=== PATIENT | male | born 1955 | race Caucasian/White ===

== ENCOUNTER 2022-07-19 11:52 | Outpatient (REF) | payer MEDICARE, MEDICAID, SELFPAY ==
[2022-07-19 14:38] LABS: Appearance Urine Clear; Color Urine Yellow; Glucose Urine UA Negative (Negative); Leukocyte Esterase Urine Small (1+) (Negative); Nitrite Urine Negative (Negative); PH 5.5 (5.0-9.0); UMIC TRIGGER UA YES; Urine Blood Negative (Negative); Urine Ketones Negative (Negative); Urine Protein Negative (Neg-Trace)
[2022-07-19 14:40] LABS: Bacteria Urine None Seen (None Seen); Hyaline Casts Urine 0-2 /LPF (0-2); RBC Urine 0-2 /HPF (0-2); Squamous Epithelial Cell Urine 0-2 /HPF (0-2)
[2022-07-19 17:31] LABS: CT PCR NOT DETECTED (Not Detect.); NG PCR NOT DETECTED (Not Detect.)
== END 2022-07-19 11:53 | disposition home or self-care (01) ==
LOC: HO.LAB 11:52
PROVIDERS: Visit Provider Family Medicine
DX: Z11.3 Encounter for screening for infections with a predominantly sexual mode of transmission (principal); R32 Unspecified urinary incontinence; Z20.2 Contact with and (suspected) exposure to infections with a predominantly sexual mode of transmission
CPT/HCPCS: 81001; 87086; 87491; 87591

== ENCOUNTER → 2022-07-25 15:15 | Outpatient (BNVA) | payer MEDICARE, MEDICAID, SELFPAY | PROVIDERS: PCP Family Medicine; Visit Provider Surgery | DX: K42.9 Umbilical hernia without obstruction or gangrene (principal); R32 Unspecified urinary incontinence; M19.90 Unspecified osteoarthritis, unspecified site; N40.0 Benign prostatic hyperplasia without lower urinary tract symptoms; E78.5 Hyperlipidemia, unspecified; I10 Essential (primary) hypertension; E11.9 Type 2 diabetes mellitus without complications | CPT/HCPCS: 99202 ==

== ENCOUNTER 2022-08-02 11:13 | Outpatient (REF) | payer MEDICARE, MEDICAID, SELFPAY ==
[2022-08-02 11:37] LABS: MANUAL DIFF FLAG NO
[2022-08-02 11:57] LABS: Basophils Percent Auto 0.5 % (0-2); Eosinophils Absolute Auto 0.2 X10*3/uL (0.0-0.4); Eosinophils Percent Auto 2.4 % (0-4); Hematocrit 39.2 % (42.0-52.0); Hemoglobin 13.7 g/dl (14.0-18.0); Imm Gran Abs Auto 0.02 X10*3/uL (0.00-0.03); Imm Gran Pct Auto 0.3 % (0.0-0.4); Lymphocytes Absolute Auto 1.1 X10*3/uL (1.2-4.9); Mean Corpuscular HGB Conc 34.9 g/dl (31.0-36.0); Mean Corpuscular Hemoglobin 38.6 pg (27.0-33.0); Mean Platelet Volume 9.5 fL (9.4-12.4); Monocytes Absolute Auto 0.4 X10*3/uL (0.1-1.2); Monocytes Percent Auto 6.5 % (2-11); Neutrophils Absolute Auto 4.5 x10*3/uL (2.0-8.3); Neutrophils Percent Auto 73.3 % (45-73); Platelet Count 255 X10*3/uL (160-400); Red Blood Count 3.55 X10*6/uL (4.60-5.80); Red Cell Distribution Width 13.4 % (11.0-16.0); White Blood Count 6.2 X10*3/uL (4.8-10.8)
[2022-08-02 12:02] LABS: Mean Corpuscular Volume 110.4 fL (80.0-98.0)
[2022-08-02 12:12] LABS: Estimated Average Glucose 128 mg/dL; Hemoglobin A1c % 6.1 %
[2022-08-02 13:37] LABS: Appearance Urine Clear; Color Urine Yellow; Glucose Urine UA Negative (Negative); Leukocyte Esterase Urine Small (1+) (Negative); Nitrite Urine Negative (Negative); PH 5.5 (5.0-9.0); UMIC TRIGGER UA YES; Urine Blood Negative (Negative); Urine Ketones Negative (Negative); Urine Protein Negative (Neg-Trace)
[2022-08-02 13:39] LABS: Bacteria Urine None Seen (None Seen); Hyaline Casts Urine 0-2 /LPF (0-2); RBC Urine 0-2 /HPF (0-2); Squamous Epithelial Cell Urine 0-2 /HPF (0-2)
[2022-08-02 14:05] LABS: Alanine Aminotransferase 12 U/L (0-40); Alkaline Phosphatase 103 U/L (39-117); Anion Gap 12 (12-20); Aspartate Amino Transferase 12 U/L (5-37); Bilirubin Total 0.9 mg/dL (0.0-1.0); Blood Urea Nitrogen 22 mg/dL (9-16); Carbon Dioxide 29 mmol/L (22-29); Chloride 103 mmol/L (96-108); Cholesterol 200 mg/dL; Estimated Glomerular Filt Rate > 60; Glucose Fasting 120 mg/dL (60-99); HDL Cholesterol 43 mg/dL; LDL Cholesterol Calculated 130 mg/dl; Potassium 4.5 mmol/L (3.3-5.1); Prostate Specific Antigen Scr 0.75 ng/mL (<0.05-4.0); Sodium 139 mmol/L (135-145); TSH reflex Free T4 2.07 uIU/mL (0.32-4.0); Total Protein 6.5 g/dL (6.5-8.0); Triglycerides 138 mg/dL
[2022-08-02 14:26] LABS: Creatinine Urine 124.26 mg/dL; Microalbum/Creatinine Ratio Ur 8.8 ug/mg cr
== END 2022-08-02 11:14 | disposition home or self-care (01) ==
LOC: HO.LAB 11:13
PROVIDERS: PCP Family Medicine; Visit Provider Family Medicine
DX: Z00.00 Encounter for general adult medical examination without abnormal findings (principal); Z12.5 Encounter for screening for malignant neoplasm of prostate; I10 Essential (primary) hypertension; R32 Unspecified urinary incontinence; R73.01 Impaired fasting glucose
CPT/HCPCS: 36415; 80053; 80061; 81001; 82043; 83036; 84153; 84443; 85025

== ENCOUNTER → 2022-08-10 15:00 | Outpatient (BNVA) | payer MEDICARE, MEDICAID, SELFPAY | PROVIDERS: PCP Family Medicine; Visit Provider Surgery | DX: K42.9 Umbilical hernia without obstruction or gangrene (principal); R32 Unspecified urinary incontinence; M19.90 Unspecified osteoarthritis, unspecified site; N40.0 Benign prostatic hyperplasia without lower urinary tract symptoms; E11.9 Type 2 diabetes mellitus without complications; I10 Essential (primary) hypertension; E78.5 Hyperlipidemia, unspecified; E66.01 Morbid (severe) obesity due to excess calories; D64.9 Anemia, unspecified; Z68.37 Body mass index [BMI] 37.0-37.9, adult | CPT/HCPCS: 99212 ==

== ENCOUNTER 2022-10-04 12:48 | Inpatient (IN) | payer MEDICARE, MEDICAID, SELFPAY ==
--- NOTE | 2022-10-04 | ECG_ITS ---
Test Reason : STROKE ALERT Blood Pressure : / mmHG Vent. Rate : 079 BPM Atrial Rate : 079 BPM P-R Int : 168 ms QRS Dur : 086 ms QT Int : 356 ms P-R-T Axes : 065 030 048 degrees QTc Int : 408 ms Normal sinus rhythm Cannot rule out Anterior infarct , age undetermined Abnormal ECG When compared with ECG of 30-JUN-2014 10:33, Minimal criteria for Anterior infarct are now Present Referred By: Kelechi Silverio Electronically Signed By:RICK ROBERTO MD
--- NOTE | ~2022-10-04 | MR_ITS ---
EXAMINATION: MR BRAIN WITHOUT CONTRAST CLINICAL INFORMATION: Cerebrovascular accident. COMPARISON: CTA head and neck from 10/04/2022. CT head from 06/30/2014. TECHNIQUE: MRI of the brain was obtained using routine sequences without contrast. FINDINGS: There is a region of restricted diffusion involving the anterior right insula and lateral aspect of the right frontal lobe. Associated T2 FLAIR hyperintensity. No evidence of hemorrhagic transformation. No additional restricted diffusion. No evidence of acute or chronic hemorrhagic products on heme-sensitive imaging. Scattered confluent periventricular, deep white matter, and brainstem T2 FLAIR hyperintensities consistent with mild underlying microangiopathy. Proportional prominence of the ventricles and sulcal spaces without evidence of obstructive hydrocephalus. No abnormal mass effect. No midline shift. Normal appearance of the pituitary gland. Normal positioning of the cerebellar tonsils. Normal arterial and venous vascular flow voids are present. Normal, homogeneous marrow signal. Moderate degenerative spondyloarthropathy of the visualized upper cervical spine. Mild mucosal thickening of the paranasal sinuses. No signal abnormalities within the mastoids. Right-sided lens extraction. Partially visualized membrane within the posterior chamber of the right globe with a T1 hyperintense collection, consistent with sequela of chronic retinal detachment. MR/MR head/brain wo con IMPRESSION: 1. Acute infarct of the anterior right insula and lateral aspect of the right frontal lobe. No evidence of hemorrhagic transformation. 2. Mild underlying microangiopathy and generalized cerebral volume loss. 3. 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
--- NOTE | ~2022-10-04 | CT_ITS ---
EXAMINATION: CT ANGIOGRAM HEAD CT ANGIOGRAM NECK CLINICAL INFORMATION: Stroke COMPARISON: Sameday CT head TECHNIQUE: Initial noncontrast program director scouting imaging of the head and neck was performed. Comparison is made with noncontrast head CT from earlier today. Test bolus sequences followed by intravenous administration 70 mL of Omnipaque 350. Helical imaging was performed in the axial plane from the aortic arch to the skull vertex. Delayed postcontrast imaging of the head was also performed. The data was processed at the computer engineering technologist's workstation for generation of MIP sequences. Angled MIPs and volume rendered reformatted images were also generated at an offline 3D workstation. Stenoses are assessed in accordance with NASCET criteria unless otherwise indicated. This CT examination was performed using dose optimization techniques as appropriate, variously including the following: *Automated exposure control *Adjustment of mA and/or kV according to patient size (this includes techniques or standardized protocols for targeted exams where dose is matched to indication/reason for exam; i.e. extremities or head) *Use of iterative reconstruction technique DLP: 1596 mGy-cm FINDINGS: CT HEAD: Noncontrast findings are discussed separately. No pathologic intra-axial enhancement within limitations of CT or regional oligemia. CTA HEAD: Calcific plaque along the carotid siphons without significant luminal narrowing with atheromatous luminal irregularity along the bilateral cavernous segments The MCA vascular complexes are normal bilaterally. The ANEUDY complexes are intense, noting prominence of the anterior communicating artery without discrete aneurysm. The intradural vertebral arteries are patent. The basilar artery is normal. The posterior cerebral arteries are widely patent with prominent bilateral posterior communicating arteries. No proximal large vessel occlusion. No aneurysms and no high flow vascular malformations. No evidence of dural arteriovenous fistula. Timing of the contrast bolus allows assessment of the major dural venous sinuses, which all opacify normally CTA NECK: Suboptimal examination due to timing of contrast bolus, particularly limiting assessment of the proximal cervical vasculature. Classic 3 vessel branching pattern of the aortic arch. Fibrofatty and calcific plaque in the aortic arch and great vessel origins The common carotid arteries are widely patent, with retropharyngeal course more pronounced on the right. The carotid bifurcations and bilateral internal carotid arteries are normal. The vertebral artery ostia are widely patent. Both vertebral arteries are widely patent throughout their extracranial cervical course. Partially imaged dilated pulmonary artery measuring up to 3.4 cm in transverse dimension, which may be seen in the setting of pulmonary hypertension. CT NECK: The patient is edentulous. Fatty infiltration of the bilateral masseter and to a lesser extent temporalis musculature. Medialization of the right aryepiglottic fold with prominence of the right pyriform sinus and right laryngeal vestibule suggestive of right vocal cord paresis. The salivary glands are unremarkable. The thyroid gland is normal. Normal appearance of the suprahyoid and infrahyoid neck spaces. No pathologically enlarged cervical chain lymph nodes. Moderate to severe C3-C4 discogenic disease with disc osteophyte complex and central disc protrusion at this level contributing to at least moderate spinal canal stenosis and severe right greater than left neural foraminal stenosis. Partially imaged multilevel right-sided lateral disc osteophytes/bridging paraspinal ossification spanning at least T3-T5. The visualized lung apices and upper mediastinum are within normal limits. CT/CT angio head neck stroke IMPRESSION: 1. Suboptimal examination due to timing of contrast bolus. Within the limitations, no significant stenosis or large vessel occlusion within the head or neck vasculature. Findings were communicated to Kelechi Silverio MD on 10/04/2022 at 1:45 PM. 2. 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 3. Moderate to severe C3-C4 discogenic disease with at least moderate spinal canal stenosis and severe right greater than left neural foraminal stenosis at this level. 4. Partially imaged dilated pulmonary artery measuring up to 3.4 cm, which may be seen in the setting of pulmonary hypertension.
--- NOTE | ~2022-10-04 | CT_ITS ---
EXAMINATION: CT HEAD WITHOUT CONTRAST (STROKE PROTOCOL) CLINICAL INFORMATION: Stroke protocol. Slurred speech. COMPARISON: CT brain 06/30/2014 TECHNIQUE: Contiguous axial imaging was performed from the skull base to vertex without intravenous administration of contrast. This CT examination was performed using dose optimization techniques as appropriate, variously including the following: *Automated exposure control *Adjustment of mA and/or kV according to patient size (this includes techniques or standardized protocols for targeted exams where dose is matched to indication/reason for exam; i.e. extremities or head) *Use of iterative reconstruction technique DLP: 779 mGy-cm FINDINGS: There is no acute intra-axial, extra-axial bleed, masses, collection or midline shift. The lateral ventricles are symmetrical in size and configuration slightly prominent. The silva to white matter difference is maintained normal. There is no acute infarction evolution or edema. Bone windows reveal no calvarial abnormality. There is no scalp soft tissue abnormality. Bilateral paranasal sinuses and mastoid air cells are well-aerated. Incidental finding of thickening of the posterior optic globe wall and septation likely retinal detachment or hemorrhage, likely old. CT/CT head for stroke IMPRESSION: No acute intracranial process seen. Incidental finding of thickened right posterior optic globe wall . Similar findings were seen on previous exam 06/30/2014. Correlate with clinical exam or opthalmology This critical result was discussed with Dr. Silverio at 1:08 PM on 10/04/2022. It was ascertained that the content and urgency of the report was understood at the time of direct communication.
[2022-10-04 12:57] LABS: Prothrombin Time Whole Bld POC 12.1 sec (11.1-13.5)
[2022-10-04 12:58] LABS: Glucose, Whole Blood 130 mg/dL (60-115)
[2022-10-04 13:08] VITALS: BP 151/73; BP 180/90; PULSE 77; PULSE 88; RESP 18; TEMP 36.6; O2SAT 97; O2SAT 98; BMI 45.6
[2022-10-04] MEDS: iohexoL 350 MG/ML 100 ML INFUS..BTL IV (13:21)
--- NOTE | 2022-10-04 13:21 | ED.NEUROSD ---
HPI - Neuro Symptoms/Deficit General Chief Complaint: Altered Mental Status Stated Complaint: STROKE ALERT,LKWT 35MIN,?THINN,L FACE DROOP,SLUR Time Seen by Provider: 10/04/22 12:55 Source: patient and EMS Mode of arrival: EMS Limitations: no limitations History of Present Illness HPI Narrative: This is 66 years old the were arrived by ambulance as a stroke alert , appear EMS the patient had slow speech and facial droop times 45 minutes. Patient denies any chest pain shortness of breath at this time a he is awake and alert and able to give history Onset (ago): hour(s) (1) Time: 13:22 Location: speech History of same: No Severity: mild Relieving factors: none Context: sudden onset On Anticoagulants: No Associated symptoms: denies other symptoms Related Data Previous Rx's Medication Instructions Recorded incontinence pad, liner, disp #120 ea 07/19/22 (Underpads Regular) metformin 500 mg tablet 500 mg PO DAILY 30 days #30 tabs 07/19/22 Allergies Allergy/AdvReac Type Severity Reaction Status Date / Time No Known Allergies Allergy Verified 08/10/22 15:06 [No Known Allergies*] Review of Systems Constitutional: Constitutional: Reports no additional constitutional complaints Eyes: Eyes: Reports no additional eye complaints Respiratory: Respiratory: Reports no additional respiratory complaints Neurologic: Reports system reviewed and no additional complaints, except as documented PMFSH Past Medical History Attestation statement: The following information was validated with the patient. Surgical History Hx of excision of dermoid cyst Social History Social History Housing: House Alcohol intake: current Alcohol intake frequency: holidays/special occasions only Patient Tobacco Use Status: Never used Tobacco e-Cigarette/Vaping Use: Never Used Second Hand Smoke Exposure: No Advance Directives: No service: No Current occupational status: disabled Current occupational exposures/hazards: No Hearing needs: Yes Physical Exam Vital Signs: Vital Signs: Last Vital Signs Temp 97.8 F 10/04/22 13:08 Pulse 77 10/04/22 13:08 Resp 18 10/04/22 13:08 BP 151/73 H 10/04/22 13:08 Pulse Ox 97 10/04/22 13:08 O2 Del Method 10/04/22 13:08 BMI result Body Mass Index 45.6 Const: General: cooperative Nutritional Appearance: well nourished Orientation/consciousness: patient oriented x3 HEENT: Head: Yes normal to inspection Ears: hearing grossly normal bilaterally General nose exam: Normal external nose present Face and sinus: Yes normal facial exam Mouth: Normal oral and palatal mucosa present Throat: Yes posterior oropharynx normal Neck: Neck: Yes normal visual inspection Chest: Chest palpation & inspection: normal inspection of the chest Resp: Effort & Inspection: normal respiratory effort Cardio: Jugular venous distension: no JVD Rate: regular rate GI: Inspection: Yes normal to inspection Palpation (GI): Soft to palpation, not firm, nontender and no guarding Auscultation: normal bowel sounds Neuro: Other: At this time is awake and alert the no deficit in strength and negative pronator drift mild slurred speech General: patient oriented x3 Course Reevaluation(s) Reevaluation #1: CT CTA negative his symptoms are not disabling, I think the risk of tPA (risk of intracranial bleed) would await benefit Time: 13:45 Medications Administered Discontinued Medications Generic Name Dose Route Start Last Admin Trade Name Freq PRN Reason Stop Dose Admin Iohexol 100 ml 10/04/22 13:20 10/04/22 13:21 Iohexol 350 Mg/Ml 100 Ml Infus..Btl IV 10/04/22 13:21 70 ml ONCE ONE Administration Medical Decision Making Medical Decision Making [facility] Narrative: Presented with slurred speech stroke scale is about 1 will go ahead return to Neurology, CT angiography of the head and neck was ordered, I do not think is a candidate for tPA his deficit is no disabling I will have a conversation with the family as well Differential Diagnosis Differential Diagnoses: The differential diagnosis associated with the presentation includes cva/head bleed Lab Data [facility] Lab Attestation statement: I reviewed the patient's lab results. 10/04/22 13:56 10/04/22 13:56 Labs: Lab Results 10/04/22 10/04/22 10/04/22 Range/Units 12:53 12:53 13:56 WBC 3.9 L (4.8-10.8) X10*3/uL RBC 3.19 L (4.60-5.80) X10*6/uL Hgb 12.7 L (14.0-18.0) g/dl Hct 35.4 L (42.0-52.0) % MCV 111.0 H (80.0-98.0) fL MCH 39.8 H (27.0-33.0) pg MCHC 35.9 (31.0-36.0) g/dl RDW 13.2 (11.0-16.0) % Plt Count 260 (160-400) X10*3/uL MPV 9.3 L (9.4-12.4) fL Immature Gran % (Auto) 0.3 (0.0-0.4) % Neut % (Auto) 66.8 (45-73) % Lymph % (Auto) 20.4 (20-40) % [place] % (Auto) 8.1 (2-11) % Eos % (Auto) 4.1 H (0-4) % Baso % (Auto) 0.3 (0-2) % Lymph # (Auto) 0.8 L (1.2-4.9) X10*3/uL [place] # (Auto) 0.3 (0.1-1.2) X10*3/uL Eos # (Auto) 0.2 (0.0-0.4) X10*3/uL Baso # (Auto) 0.0 (0.0-0.2) X10*3/uL Abs Immat Gran (auto) 0.01 (0.00-0.03) X10*3/uL Absolute Neuts (auto) 2.6 (2.0-8.3) x10*3/uL Absolute Nucleated RBC 0.000 (0.0-0.012) X10*3/uL Nucleated RBC % (auto) 0.0 (0.0-0.2) /100WBC PT (10.0-13.1) SEC Whole Blood PT 12.1 (11.1-13.5) sec INR (0.9-1.1) Whole Blood INR 1.0 (0.9-1.1) APTT (26.0-36.4) SEC Sodium (135-145) mmol/L Potassium (3.3-5.1) mmol/L Chloride (96-108) mmol/L Carbon Dioxide (22-29) mmol/L Anion Gap (12-20) BUN (9-16) mg/dL Creatinine (0.5-1.4) mg/dL Estim Creat Clear Calc Estimated GFR POC Glucose 130 H (60-115) mg/dL Random Glucose (60-115) mg/dL Calcium (8.4-10.2) mg/dL Total Bilirubin (0.0-1.0) mg/dL AST (5-37) U/L ALT (0-40) U/L Alkaline Phosphatase (39-117) U/L Total Protein (6.5-8.0) g/dL Albumin (3.5-5.0) g/dL 10/04/22 10/04/22 Range/Units 13:56 13:56 WBC (4.8-10.8) X10*3/uL RBC (4.60-5.80) X10*6/uL Hgb (14.0-18.0) g/dl Hct (42.0-52.0) % MCV (80.0-98.0) fL MCH (27.0-33.0) pg MCHC (31.0-36.0) g/dl RDW (11.0-16.0) % Plt Count (160-400) X10*3/uL MPV (9.4-12.4) fL Immature Gran % (Auto) (0.0-0.4) % Neut % (Auto) (45-73) % Lymph % (Auto) (20-40) % [place] % (Auto) (2-11) % Eos % (Auto) (0-4) % Baso % (Auto) (0-2) % Lymph # (Auto) (1.2-4.9) X10*3/uL [place] # (Auto) (0.1-1.2) X10*3/uL Eos # (Auto) (0.0-0.4) X10*3/uL Baso # (Auto) (0.0-0.2) X10*3/uL Abs Immat Gran (auto) (0.00-0.03) X10*3/uL Absolute Neuts (auto) (2.0-8.3) x10*3/uL Absolute Nucleated RBC (0.0-0.012) X10*3/uL Nucleated RBC % (auto) (0.0-0.2) /100WBC PT 11.5 (10.0-13.1) SEC Whole Blood PT (11.1-13.5) sec INR 1.0 (0.9-1.1) Whole Blood INR (0.9-1.1) APTT 30.1 (26.0-36.4) SEC Sodium 139 (135-145) mmol/L Potassium 4.2 (3.3-5.1) mmol/L Chloride 110 H (96-108) mmol/L Carbon Dioxide 20 L (22-29) mmol/L Anion Gap 13 (12-20) BUN 24 H (9-16) mg/dL Creatinine 1.26 (0.5-1.4) mg/dL Estim Creat Clear Calc 76.8 Estimated GFR 57 POC Glucose (60-115) mg/dL Random Glucose 106 (60-115) mg/dL Calcium 9.0 (8.4-10.2) mg/dL Total Bilirubin 1.2 H (0.0-1.0) mg/dL AST 11 (5-37) U/L ALT 10 (0-40) U/L Alkaline Phosphatase 93 (39-117) U/L Total Protein 6.1 L (6.5-8.0) g/dL Albumin 3.8 (3.5-5.0) g/dL Independent Interpretation I performed an independent interpretation of an: EKG (NSR [address]-t changes) NIH Stroke Scale Time: 13:45 Level of Consciousness: Alert Level of Consciousness Questions: Answers both questions correctly Level of Consciousness Commands: Performs both tasks correctly Best Gaze: Normal Visual: No visual loss Facial Palsy: Normal Motor Arm (Right): No drift Motor Arm (Left): No drift Motor Leg (Right): No drift Motor Leg (Left): No drift Limb Ataxia: Absent Sensory: Normal Best Language: Mild to moderate aphasia Dysarthia: Mild to moderate dysarthria Extinction and Inattention: No abnormality Score: 2 Discharge Plan Discharge Clinical Impression: Acute CVA (cerebrovascular accident) Patient Disposition: Admitted As Inpatient
--- NOTE | 2022-10-04 13:43 | MHC.STROKE ---
Addendum entered by Xenia Douglas RN 10/05/22 12:04: 10:00 I MET WITH THE PATIENT TO FOLLOW UP AND PROVIDE ADDITIONAL STROKE EDUCATION. WE REVIEWED HIS DIAGNOSIS, LOCATION OF THE STROKE AND CORRESPONDING SYMPTOMS. HE DID NOT HAVE ANY QUESTIONS AND I WILL CONTINUE TO FOLLOW. Original Note: 1242 EMS PRE-NOTIFIED STROKE ALERT . LEFT DROOP AND SLURRED SPEECH, ONSET AROUND 1200. ARRIVED AT [facility] 1248, EXAMINED BY PROVIDER NIHSS = 2 (SODIUM METHYLATE OPERATOR PRESENT), CT CTA H/N ORDERED. CT DONE 1254 READ 1308 NO BLEED. CTA PENDING. BACK IN HIS ROOM, SODIUM METHYLATE OPERATOR PRESENT, FOLLOWS ALL COMMANDS, NO TEETH BUT SLIGHT DYSARTHRIA, SLIGHT LEFT DROOP, BASELINE PATIENT DRIVES, HE DOES NOT WORK . HE WOKE THIS AM FEELING FINE. HIS BROTHER THOUGHT HIS FACE WAS DROOPED. HE DID PASS NURSING SWALLOW SCREEN. DR DIALLO NOTIFIED TO CALL DR TIWARI. PMH: HTN, HLD, DM, SEE EMR FOR DETAILS. INITIATED STROKE EDUCATION AND REVIEWED THE PLAN OF CARE WITH THE PATIENT. I WILL CONTINUE TO FOLLOW.
[2022-10-04 13:59] LABS: MANUAL DIFF FLAG NO
[2022-10-04 14:01] LABS: Basophils Percent Auto 0.3 % (0-2); Eosinophils Absolute Auto 0.2 X10*3/uL (0.0-0.4); Eosinophils Percent Auto 4.1 % (0-4); Hematocrit 35.4 % (42.0-52.0); Hemoglobin 12.7 g/dl (14.0-18.0); Imm Gran Abs Auto 0.01 X10*3/uL (0.00-0.03); Imm Gran Pct Auto 0.3 % (0.0-0.4); Lymphocytes Absolute Auto 0.8 X10*3/uL (1.2-4.9); Lymphocytes Percent Auto 20.4 % (20-40); Mean Corpuscular HGB Conc 35.9 g/dl (31.0-36.0); Mean Corpuscular Hemoglobin 39.8 pg (27.0-33.0); Mean Platelet Volume 9.3 fL (9.4-12.4); Monocytes Absolute Auto 0.3 X10*3/uL (0.1-1.2); Monocytes Percent Auto 8.1 % (2-11); Neutrophils Absolute Auto 2.6 x10*3/uL (2.0-8.3); Neutrophils Percent Auto 66.8 % (45-73); Platelet Count 260 X10*3/uL (160-400); Red Blood Count 3.19 X10*6/uL (4.60-5.80); Red Cell Distribution Width 13.2 % (11.0-16.0); White Blood Count 3.9 X10*3/uL (4.8-10.8)
[2022-10-04 14:06] LABS: Prothrombin Time 11.5 SEC (10.0-13.1)
[2022-10-04 14:08] LABS: Partial Thromboplastin Time 30.1 SEC (26.0-36.4)
[2022-10-04 14:19] LABS: Alanine Aminotransferase 10 U/L (0-40); Albumin Level 3.8 g/dL (3.5-5.0); Alkaline Phosphatase 93 U/L (39-117); Anion Gap 13 (12-20); Aspartate Amino Transferase 11 U/L (5-37); Bilirubin Total 1.2 mg/dL (0.0-1.0); Blood Urea Nitrogen 24 mg/dL (9-16); Carbon Dioxide 20 mmol/L (22-29); Chloride 110 mmol/L (96-108); Creatinine Clr Calc Pharmacy 76.8; Estimated Glomerular Filt Rate 57; Glucose Random 106 mg/dL (60-115); Potassium 4.2 mmol/L (3.3-5.1); Sodium 139 mmol/L (135-145); Total Protein 6.1 g/dL (6.5-8.0)
[2022-10-04] MEDS: Aspirin 81 MG TAB.CHEW 324 MG PO (14:48)
[2022-10-04 14:49] LABS: Troponin-I High Sensitivity 59.9 ng/L (<3.5-35.0)
--- NOTE | 2022-10-04 14:50 | PM.IMHP ---
History of Present Illness Date of Service: 10/04/22 Attending physician on admission: Tony Troncoso Chief Complaint: slurred speech 66-year-old male with [id number] type 2 diabetes, hypertension, hyperlipidemia, BPH, chronic macrocytic anemia, and morbid obesity presented to the ED via EMS as a stroke alert with symptoms of slow speech and facial droop that began around noon today. His son, who assists with Kiswahili interpretation, reports he was found leaning forward with left-sided facial droop and slurred speech by family who called EMS. He denies any focal weakness, paresthesias, blurred vision, diplopia, confusion, gait ataxia. On arrival, vitals stable, blood pressure 151/73. Mild leukopenia of 3.9. H/H 12.7/35.4%, MCV 111.0. Renal function normal, electrolytes normal except for mildly hyperchloremic at 110 with CO2 20. Initial trop 59.9. Head CT without any acute intracranial process but did show incidental finding of thickened right posterior optic globe wall seen on prior exams. Head/neck CTA without any significant stenosis or large vessel occlusion. 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 There is also a partially imaged dilated pulmonary artery measuring up to 3.4 cm, seen in setting of pulmonary hypertension. NIH stroke scale 1. Discussed with stroke team/neurology. Given symptoms are nondebilitating, pt not felt to be a candidate for TPA. Given 324mg asa. Pt to be admitted for stroke. Reports drinking 1-2 beers daily, denies hx withdrawal. Has hx alcohol abuse. No smoking or drug abuse. Review of Systems Review of Systems: Yes all other systems are reviewed and are negative [facility] Surgical History Hx of excision of dermoid cyst Social History (Updated 10/04/22 @ 16:16 by RUBEN Montoya) Household Members: None Housing: Apartment Do you presently have visiting nurse or other home services: No Unable to assess alcohol history related to: Unknown Alcohol intake: current Alcohol intake frequency: 0-2 drinks per day Alcohol type: beer Patient Tobacco Use Status: Never used Tobacco Smoked in Last 30 Days: No e-Cigarette/Vaping Use: Never Used Second Hand Smoke Exposure: No Use of substances other than those prescribed or required for medical reasons: No Currently Displaying Signs/Symptoms of Drug Intoxication Withdrawal: No Have you been hit, kicked, punched, or otherwise hurt by someone within the past year? If so, by whom?: No Do you feel safe in your current relationship?: No Current Relationship Is there a partner from a previous relationship who is making you feel unsafe now?: No Spiritual Healthcare Practices: episcopal Advance Directives: No Advance Directives Information Provided: No (AMS) Do you have thoughts of harming others: None Do you have a plan to hurt others: No Plan Recently lost weight without trying: No Nutrition Risks: Dental problems service: No Current occupational status: disabled Current occupational exposures/hazards: No Hearing needs: Yes Meds Allergies Allergy/AdvReac Type Severity Reaction Status Date / Time No Known Allergies Allergy Verified 08/10/22 15:06 [No Known Allergies*] Active Medications: Current Medications Pharmacy Consult (Consult Rx Perform Med Rec) 1 each MISCELLANE ONCE PRN PRN Reason: Consult order Home Medications Medication Instructions Recorded Confirmed Last Taken Type ferrous sulfate 325 mg (65 mg 0 mg PO DAILY 10/04/22 10/04/22 Unknown History iron) tablet,delayed release Physical Exam Vital Signs and Narrative: Vital Signs: Last Vital Signs Temp 97.8 F 10/04/22 13:08 Pulse 77 10/04/22 13:08 Resp 18 10/04/22 13:08 BP 151/73 H 10/04/22 13:08 Pulse Ox 97 10/04/22 13:08 O2 Del Method 10/04/22 13:08 BMI result Body Mass Index 45.6 Constitutional - Awake and Alert, No apparent distress Eyes - PERRLA, EOMI Cardiovascular - S1S2, RRR, No edema Respiratory - Normal lung expansion, Normal respiratory effort, No respiratory distress, CTA bilaterally Gastrointestinal - NT / ND; +BS; No rebound or guarding. Large umbilical hernia Extremities - no calf tenderness bilaterally, no swelling Skin - Warm/Dry Neurological - Alert & oriented x3, Left sided facial droop sparing forehead with loss of left nasal labial fold and slurred speech, otherwise CN II-XII in tact, 5/5 strength BUE and BLE Psychological - Appropriate affect Results Labs 10/04/22 13:56 10/04/22 13:56 Labs: Laboratory Results - last 24 hr 10/04/22 10/04/22 10/04/22 12:53 12:53 13:56 MCV MCH MCHC RDW Plt Count MPV Immature Gran % (Auto) Neut % (Auto) Lymph % (Auto) [place] % (Auto) Eos % (Auto) Baso % (Auto) Lymph # (Auto) [place] # (Auto) Eos # (Auto) Baso # (Auto) Abs Immat Gran (auto) Absolute Neuts (auto) Absolute Nucleated RBC Nucleated RBC % (auto) PT Whole Blood PT 12.1 INR Whole Blood INR 1.0 APTT Anion Gap Estim Creat Clear Calc Estimated GFR POC Glucose 130 H Random Glucose Calcium Total Bilirubin AST ALT Alkaline Phosphatase Troponin I High Sens 59.9 H Total Protein Albumin 10/04/22 10/04/22 10/04/22 13:56 13:56 13:56 MCV 111.0 H MCH 39.8 H MCHC 35.9 RDW 13.2 Plt Count 260 MPV 9.3 L Immature Gran % (Auto) 0.3 Neut % (Auto) 66.8 Lymph % (Auto) 20.4 [place] % (Auto) 8.1 Eos % (Auto) 4.1 H Baso % (Auto) 0.3 Lymph # (Auto) 0.8 L [place] # (Auto) 0.3 Eos # (Auto) 0.2 Baso # (Auto) 0.0 Abs Immat Gran (auto) 0.01 Absolute Neuts (auto) 2.6 Absolute Nucleated RBC 0.000 Nucleated RBC % (auto) 0.0 PT 11.5 Whole Blood PT INR 1.0 Whole Blood INR APTT 30.1 Anion Gap 13 Estim Creat Clear Calc 76.8 Estimated GFR 57 POC Glucose Random Glucose 106 Calcium 9.0 Total Bilirubin 1.2 H AST 11 ALT 10 Alkaline Phosphatase 93 Troponin I High Sens Total Protein 6.1 L Albumin 3.8 Imaging Radiologist's Impressions: Impressions Head CT 10/04/22 13:02 IMPRESSION: No acute intracranial process seen. Incidental finding of thickened right posterior optic globe wall . Similar findings were seen on previous exam 06/30/2014. Correlate with clinical exam or opthalmology This critical result was discussed with Dr. Silverio at 1:08 PM on 10/04/2022. It was ascertained that the content and urgency of the report was understood at the time of direct communication. Head/Neck CTA 10/04/22 13:17 IMPRESSION: 1. Suboptimal examination due to timing of contrast bolus. Within the limitations, no significant stenosis or large vessel occlusion within the head or neck vasculature. Findings were communicated to Kelechi Silverio MD on 10/04/2022 at 1:45 PM. 2. 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 3. Moderate to severe C3-C4 discogenic disease with at least moderate spinal canal stenosis and severe right greater than left neural foraminal stenosis at this level. 4. Partially imaged dilated pulmonary artery measuring up to 3.4 cm, which may be seen in the setting of pulmonary hypertension. Assessment and Plan (1) Acute CVA (cerebrovascular accident): Status: Acute Plan 66-year-old male with [id number]-tezxihedo type 2 diabetes, hypertension, hyperlipidemia, BPH, chronic macrocytic anemia, and morbid obesity admitted for acute CVA. #Acute CVA -Symptoms left facial droop and slurred speech with last well time 12:00pm -NIH stroke score 1. No tPA administered given non debilitating symptoms -Head CT negative for acute intracranial abnormality. Head/neck CTA negative for any significant stenosis or large vessel occlusion -MRI pending -given aspirin 325 mg in ED. Continue 81 mg aspirin daily -lipid panel pending. Started atorvastatin 80 mg daily -echocardiogram ordered -PT/OT/STRUCTURES ENGINEER evaluation pending -appreciate neurology input -erik pickett passed -stroke edu -admit to telemetry # byf-isffoio-yvdqajuus type 2 diabetes- controlled without hyperglycemia -hold metformin -POC glucose -diabetic diet -Humalog on sliding scale # chronic macrocytic anemia related to B12 deficiency -likely also related to alcohol use -initiate vitamin B12 1000 mcg daily # daily alcohol use -reports drinking 1-2 beers daily -monitor on CIWA -initiate thiamine folic acid # hypertension- reasonably controlled -monitor BP # hyperlipidemia -lipid panel pending -initiate atorvastatin 80 mg as above # cervical DDD-moderate to severe -with moderate to severe spinal stenosis and neuroforaminal narrowing noted on neck CTA -outpatient follow-up advised # ophthalmological abnormality seen on CT -thickening of right posterior optic global, previously seen on exam in 2014 -outpatient follow-up advised # morbid obesity -weight loss efforts advised DVT prophylaxis-Lovenox Full code HCP- Betsy Tosado [phone] Patient requires inpatient stay of at least 2 midnights for management of acute CVA Time Spent With Patient Time: Total time managing care of this patient today ____ minutes. Quality Stroke Does the patient have a stroke diagnosis?: Yes Reason for No Anti-thrombotic by Day Two: Drug treatment not indicated VTE Prior VTE?: No VTE Risk Level:: Medical - moderate - high VTE Device Contraindication: Treatment Not Tolerated VTE Drug Contraindication: N/A - Med Ordered
[2022-10-04 15:05] LABS: COVID-19 Test Negative (Negative); IDNOW Serial# 9DB6401D
[2022-10-04 15:42] VITALS: BP 138/87; PULSE 83; RESP 16; TEMP 36.3; O2SAT 97
[2022-10-04 15:56] LABS: Folate 18.6 ng/mL (> or = 4.0); Vitamin B12 < 148 pg/mL (200-900)
[2022-10-04 16:13] LABS: Cholesterol 143 mg/dL; HDL Cholesterol 39 mg/dL; LDL Cholesterol Calculated 84 mg/dl; Triglycerides 103 mg/dL
[2022-10-04 16:19] LABS: Troponin-I High Sensitivity 61.6 ng/L (<3.5-35.0)
[2022-10-04 16:37] VITALS: BP 118/42; PULSE 70; RESP 18; O2SAT 96
[2022-10-04] MEDS: 0.9 % Sodium Chloride Flush 3 ML SYRINGE IVFLUSH ×2 (17:33→23:57)
[2022-10-04] MEDS: Enoxaparin Sodium 40 MG/0.4 ML SYRINGE SUBCUT (17:33)
[2022-10-04 17:54] VITALS: BP 158/91; PULSE 85; RESP 18; TEMP 37.1; O2SAT 98
[2022-10-04 18:06] LABS: Glucose, Whole Blood 109 mg/dL (60-115)
[2022-10-04 18:22] VITALS: BMI 36.3
[2022-10-04 19:29] VITALS: BP 154/83; PULSE 83; RESP 19; TEMP 37.1; O2SAT 95
[2022-10-04 19:42] LABS: Glucose, Whole Blood 155 mg/dL (60-115)
--- NOTE | 2022-10-04 19:51 | PHA.MEDREC ---
waiting to talk with patients family member, will call us back. only med filled is metformin Pharmacy Consult ? Medication Reconciliation Pharmacy has completed the medication reconciliation.
[2022-10-04 21:55] LABS: Glucose, Whole Blood 102 mg/dL (60-115)
[2022-10-04 23:51] VITALS: BP 129/83; PULSE 70; RESP 18; TEMP 37.6; O2SAT 97
[2022-10-05 03:02] VITALS: BP 116/58; PULSE 70; RESP 18; TEMP 36.8; O2SAT 95
[2022-10-05 06:00] VITALS: BMI 36.3
[2022-10-05 06:24] LABS: MANUAL DIFF FLAG NO
[2022-10-05 06:44] LABS: Basophils Percent Auto 0.9 % (0-2); Eosinophils Absolute Auto 0.2 X10*3/uL (0.0-0.4); Eosinophils Percent Auto 4.8 % (0-4); Hematocrit 35.1 % (42.0-52.0); Hemoglobin 12.5 g/dl (14.0-18.0); Imm Gran Abs Auto 0.01 X10*3/uL (0.00-0.03); Imm Gran Pct Auto 0.2 % (0.0-0.4); Lymphocytes Absolute Auto 1.4 X10*3/uL (1.2-4.9); Lymphocytes Percent Auto 32.1 % (20-40); Mean Corpuscular HGB Conc 35.6 g/dl (31.0-36.0); Mean Corpuscular Hemoglobin 39.4 pg (27.0-33.0); Mean Platelet Volume 9.6 fL (9.4-12.4); Monocytes Absolute Auto 0.4 X10*3/uL (0.1-1.2); Monocytes Percent Auto 9.6 % (2-11); Neutrophils Absolute Auto 2.3 x10*3/uL (2.0-8.3); Neutrophils Percent Auto 52.4 % (45-73); Platelet Count 258 X10*3/uL (160-400); Red Blood Count 3.17 X10*6/uL (4.60-5.80); Red Cell Distribution Width 13.2 % (11.0-16.0); White Blood Count 4.4 X10*3/uL (4.8-10.8)
--- NOTE | 2022-10-05 07:00 | CA_ITS ---
Transthoracic Echocardiogram Patient (Last, First, Middle): Jose Saez, Gender: Male Date of : 1955 Age: 66 Procedure Date: 10/05/2022 Procedure Type: Transthoracic E[place]ocardi[place] [facility] [place]: 172.72 cm Weight: 108.41 kg BSA: 2.20 m2 Heart Rate: 84 bpm BP: 172 / 86 mmHg Cutch Cleaner: SB Referring MD: Guerda MIRANDA Biomedical Photographer: Darren Martinez MD Symptoms: stroke Study Quality: Adequate w contrast ECG Rhythm: Sinus Conclusions: - 1. Low normal LV systolic function with impaired relaxation filling pattern 2. Normal cardiac valvular Doppler 3. Srkv-vs-ycsumcus atherosclerotic plaques noted in the ascending as well as the arch of the aorta 4. No gross pericardial effusion Findings Procedure Information Contrast agent, definity, is being given per protocol without apparent complications. Left Ventricle Normal left ventricular cavity size. There is normal left ventricular wall thickness. The left ventricular systolic function is low normal. The visually estimated ejection fraction is between 50-55%. Spectral Doppler is indicative of an impaired relaxation filling pattern. There is mild septal asymmetric hypertrophy. There is no evidence of a thrombus in the left ventricle. Wall Motion Rest Echo Findings The apex segment is hypokinetic. All other scored wall segments showed normal motion. Right Ventricle Normal right ventricular cavity size. Atria The left atrium is normal in size. There is no evidence of interatrial shunt. The right atrium was not well visualized. Aortic Valve There is mild calcification of the aortic valve. There is no aortic valve stenosis. There is no aortic valve regurgitation. Mitral Valve There is mild anterior and posterior mitral leaflet thickening. There is trace mitral valve regurgitation. There is no mitral valve stenosis. Pulmonic Valve The pulmonic valve was not well visualized. Tricuspid Valve The tricuspid valve was not well visualized. Tricuspid regurgitation envelope is inadequate for calculation of right ventricular systolic pressure. Normal right atrial pressure. Great Vessels All visible segments of the aorta are normal in size. The pulmonary artery was not well visualized. Moderate plaque is seen in the ascending aorta and arch. Venous The inferior vena cava is normal in size and collapses greater than 50% with inspiration. Pericardium/Pleural There is no evidence of pericardial effusion. Prior Study Comparison No prior study available for comparison. Measurements 2D Linear Measurements IVSd: 1.25 0.6-0.9/0.6-1.0 cm LVIDd: 5.39 3.9-5.3/4.2-5.9 cm LVIDd Index: 2.45 2.4-3.2/2.2-3.1 cm/m2 LVIDs: 3.94 2.0-3.6 cm LVPWd: 0.60 0.7-1.1 cm LA Diam: 3.70 2.7-3.8/3.0-4.0 cm LAIDs Index: 1.68 1.5-2.3 cm/m2 LV Mass: 231.01 67-162/88-224 g LV Mass Index: 105.01 43-95/49-115 g/m2 LVOT Diam: 2.30 3.0+(-)1.3 cm 2D Systolic Function EF 4C: 50.60 >55% EF 2C: 56.70 >55% EF BiP: 53.90 >55% Mitral Valve MV Pk E: 0.77 MV PK A: 0.96 MV Decel Time: 190.00 E/A: 0.80 E'Lateral: 9.79 E'Medial: 5.77 E/E' Med: 13.40 E/E' Lat: 7.90 PHT: 56.00 MVA PHT: 3.93 Decel Ritchie: 4.06 Aortic Valve AoV Pk Melvin: 1.72 AoV Mn Melvin: 1.21 AoV VTI: 0.30 AoV Pk Grad: 12.00 Aov Mn Grad: 7.00 MARIA TERESA Cont.VTI: 2.88 LVOT LVOT Pk Melvin: 1.12 LVOT Mn Melvin: 0.75 LVOT VTI: 0.21 LVOT Pk Grad: 5.00 LVOT Mn Grad: 3.00 LVOT Diam: 2.30 LVOT Area: 4.15 Diastolic Function MV Pk E: 0.77 MV Pk A: 0.96 E/A: 0.80 E'Medial: 5.77 E/E' Med: 13.40 E' Laterial: 9.79 E/E' Lat: 7.90 Right Ventricle TAPSE (mm): 24.80 TVS' Melvin: 20.50 Tricuspid Valve RA Press: 3.00 Great Vessels Aorta Sinus of Valsalva: 3.50 2.0-3.5 cm Ao Asc: 4.00 2.1-3.4 cm Ao Arch: 3.40 Ao Desc: 2.00 Pulmonary Veins Pulm Vein S/D 1.30 Pulmonary Valve PV Pk Melvin: 1.18 Peak PV Grad: 6.00 Updated in Other Vendor System with Status of Final Darren Martinez MD electronically signed on 10/05/2022 1:19:39 PM with status of Final
[2022-10-05 07:03] LABS: Mean Corpuscular Volume 110.7 fL (80.0-98.0)
[2022-10-05 07:14] LABS: Anion Gap 16 (12-20); Blood Urea Nitrogen 22 mg/dL (9-16); Calcium 8.7 mg/dL (8.4-10.2); Carbon Dioxide 18 mmol/L (22-29); Chloride 109 mmol/L (96-108); Creatinine Clr Calc Pharmacy 83.9; Estimated Glomerular Filt Rate > 60; Glucose Random 96 mg/dL (60-115); Potassium 3.9 mmol/L (3.3-5.1); Sodium 139 mmol/L (135-145)
[2022-10-05 07:20] VITALS: BP 172/86; PULSE 80; RESP 16; TEMP 37.1; O2SAT 98
[2022-10-05 07:47] LABS: Glucose, Whole Blood 107 mg/dL (60-115)
[2022-10-05 08:00] VITALS: BP 172/86; PULSE 80; RESP 16; TEMP 37.1; O2SAT 98
[2022-10-05] MEDS: Atorvastatin Calcium 80 MG TABLET PO (09:08)
[2022-10-05] MEDS: Aspirin Enteric Coated 81 MG TABLET.DR PO (09:08)
[2022-10-05] MEDS: 0.9 % Sodium Chloride Flush 3 ML SYRINGE IVFLUSH (09:08)
[2022-10-05] MEDS: Cyanocobalamin (Vitamin B-12) 1,000 MCG TABLET 1000 MCG PO (09:08)
[2022-10-05] MEDS: Folic Acid 1 MG TABLET PO (09:09)
[2022-10-05] MEDS: Thiamine HCL 100 MG TABLET PO (09:09)
--- NOTE | 2022-10-05 09:11 | P.CNNE_ITS ---
History of Present Illness Data of Consult Service Date: 10/05/22 Primary Care Provider: Unknown Physician HPI Reason for consult: Stroke 66 years old man with hypertension and anemia who came to hospital with new o nset of slurred speech and left-sided facial droop. He was evaluated in emergency room for possible stroke but because of minor nature of symptoms treatment like intravenous tPA was not considered. CTA did not reveal any treatable lesion. He was admitted for further evaluation. There was no asso ciated headache nausea or vomiting. Review of Systems Review of Systems: No recent cold or flu-like illness PMFSH Surgical History Surgical History Hx of excision of dermoid cyst Social History Social History (Updated 10/04/22 @ 16:16 by RUBEN Montoya) Household Members: None Housing: Apartment Do you presently have visiting nurse or other home services: No Unable to assess alcohol history related to: Unknown Alcohol intake: current Alcohol intake frequency: 0-2 drinks per day Alcohol type: beer Patient Tobacco Use Status: Never used Tobacco Smoked in Last 30 Days: No e-Cigarette/Vaping Use: Never Used Second Hand Smoke Exposure: No Use of substances other than those prescribed or required for medical reasons: No Currently Displaying Signs/Symptoms of Drug Intoxication Withdrawal: No Have you been hit, kicked, punched, or otherwise hurt by someone within the past year? If so, by whom?: No Do you feel safe in your current relationship?: No Current Relationship Is there a partner from a previous relationship who is making you feel unsafe now?: No Spiritual Healthcare Practices: advent Advance Directives: No Advance Directives Information Provided: No (AMS) Do you have thoughts of harming others: None Do you have a plan to hurt others: No Plan Recently lost weight without trying: No Nutrition Risks: Dental problems service: No Current occupational status: disabled Current occupational exposures/hazards: No Hearing needs: Yes Meds Allergies Allergy/AdvReac Type Severity Reaction Status Date / Time No Known Allergies Allergy Verified 08/10/22 15:06 [No Known Allergies*] Active Medications: Current Medications Acetaminophen (Acetaminophen 325 Mg Tablet) 650 mg PO Q6H PRN PRN Reason: Pain, Mild (Pain Scale 1-3) Aspirin (Aspirin Enteric Coated 81 Mg Tablet.) 81 mg PO DAILY TREY Last Admin: 10/05/22 09:08 Dose: 81 mg Atorvastatin Calcium (Atorvastatin Calcium 80 Mg Tablet) 80 mg PO DAILY [facility] Last Admin: 10/05/22 09:08 Dose: 80 mg Cyanocobalamin (Cyanocobalamin (Vitamin B-12) 1,000 Mcg Tablet) 1,000 mcg PO DAILY [facility] Last Admin: 10/05/22 09:08 Dose: 1,000 mcg Dextrose (Dextrose 50 % 25 Gm/50 Ml Syringe) 25 gm IVPUSH Q15M PRN; Protocol PRN Reason: per Hypoglycemia Standing Ord. Enoxaparin Sodium (Enoxaparin Sodium 40 Mg/0.4 Ml Syringe) 40 mg SUBCUT Q24H [facility] Last Admin: 10/04/22 17:33 Dose: 40 mg Folic Acid (Folic Acid 1 Mg Tablet) 1 mg PO DAILY [facility] Last Admin: 10/05/22 09:09 Dose: 1 mg Glucose (Glucose Gel 15 Gm Gel..Gram.) 15 gm PO Q15M PRN; Protocol PRN Reason: per Hypoglycemia Standing Ord. Insulin Human Lispro (Insulin Lispro 100 Unit/Ml 3 Ml Vial) 0 unit SUBCUT QIDACHS [facility]; Protocol Last Admin: 10/05/22 09:06 Dose: Not Given Ondansetron HCl (Ondansetron Hcl 4 Mg/2 Ml Vial) 4 mg IVPUSH Q8H PRN PRN Reason: Nausea and Vomiting Pharmacy Consult (Consult Rx Perform Med Rec) 1 each MISCELLANE ONCE PRN PRN Reason: Consult order Senna (Sennosides 8.6 Mg Tablet) 17.2 mg PO BEDTIME PRN PRN Reason: Constipation Sodium Chloride (0.9 % Sodium Chloride Flush 3 Ml Syringe) 3 ml IVFLUSH QSHIFT [facility] Last Admin: 10/05/22 09:08 Dose: 3 ml Thiamine HCl (Thiamine Hcl 100 Mg Tablet) 100 mg PO DAILY [facility] Last Admin: 10/05/22 09:09 Dose: 100 mg Home Medications Medication Instructions Recorded Confirmed Last Taken Type ferrous sulfate 325 mg (65 mg 0 mg PO DAILY 10/04/22 10/04/22 Unknown History iron) tablet,delayed release Physical Exam Vital Signs: Vital Signs: Last Vital Signs Temp 98.7 F 10/05/22 08:00 Pulse 80 10/05/22 08:00 Resp 16 10/05/22 08:00 BP 172/86 H 10/05/22 08:00 Pulse Ox 98 10/05/22 08:00 O2 Del Method 10/05/22 08:00 BMI result Body Mass Index 36.3 Neuro: Other: He is alert and awake with normal spontaneity and fluency of speech. Speech was somewhat slurred. There was mild hoarseness. Pupils were round reactive to light. Right eye vision was poor. Visual zapata were intact. There was mild left-sided facial flatness. Tongue was midline. There was no pronator drift. Deep tendon reflexes were absent. Results Labs 10/05/22 05:55 10/05/22 05:55 Labs: Short CBC 10/04/22 10/05/22 Range/Units 13:56 05:55 WBC 3.9 L 4.4 L (4.8-10.8) X10*3/uL Hgb 12.7 L 12.5 L (14.0-18.0) g/dl Hct 35.4 L 35.1 L (42.0-52.0) % Plt Count 260 258 (160-400) X10*3/uL BMP 10/04/22 10/05/22 13:56 05:55 Sodium 139 139 Potassium 4.2 3.9 Chloride 110 H 109 H Carbon Dioxide 20 L 18 L BUN 24 H 22 H Creatinine 1.26 1.02 Calcium 9.0 8.7 Liver Function 10/04/22 Range/Units 13:56 Total Bilirubin 1.2 H (0.0-1.0) mg/dL AST 11 (5-37) U/L ALT 10 (0-40) U/L Alkaline Phosphatase 93 (39-117) U/L Albumin 3.8 (3.5-5.0) g/dL MRI of brain revealed an acute right perisylvian moderate-size infarct. CTA did not reveal any vascular lesion. Assessment and Plan (1) Acute CVA (cerebrovascular accident): Status: Acute 66 years old man with probably embolic right middle cerebral artery cortical infarct. The only deficit this stroke probably had was mild left-sided facial flatness. His slurred speech was likely due to vocal cord paralysis noted on MRI. At this time my recommendations are to continue anti-platelet therapy blood pressure management and statin and investigate for cardiac source of embolism. Outpatient ENT consultation is recommended for vocal cord paralysis. Time Spent With Patient Time: Total time managing care of this patient today ____ minutes. Procedures Date of Service Date of Service: 10/05/22
[2022-10-05 11:28] VITALS: BP 153/79; PULSE 63; RESP 16; TEMP 37.2; O2SAT 96
[2022-10-05 11:53] LABS: Glucose, Whole Blood 113 mg/dL (60-115)
--- NOTE | 2022-10-05 12:04 | MHC.CM.PN ---
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
--- NOTE | 2022-10-05 13:49 | P.DS_ITS ---
DS: Providers Provider Date of Service: 10/05/22 Date of admission: 10/04/22 15:37 Date of discharge: 10/05/22 Primary care physician: Unknown Physician Consults: 10/04/22 13:46 Consult to Neurology Stat Consulting Provider: [facility] Reason for consultation: slurred speech Has provider been notified: Yes 10/04/22 15:42 Consult to Neurology Routine Consulting Provider: Chetan Nicholson Reason for consultation: stroke DS: Diagnosis Discharge Diagnosis (1) Acute CVA (cerebrovascular accident): Status: Acute DS: Summary Hospital Course Hospital Course: 66-year-old male with [id number] type 2 diabetes, hypertension, hyperlipidemia, BPH, chronic macrocytic anemia, and morbid obesity presented to the ED via EMS as a stroke alert with symptoms of slow speech and facial droop that began around noon today. His son, who assists with Bengali interpretation, reports he was found leaning forward with left-sided facial droop and slurred speech by family who called EMS. He denies any focal weakness, paresthesias, blurred vision, diplopia, confusion, gait ataxia. On arrival, vitals stable, blood pressure 151/73. Mild leukopenia of 3.9. H/H 12.7/35.4%, MCV 111.0. Renal function normal, electrolytes normal except for mildly hyperchloremic at 110 with CO2 20. Initial trop 59.9. Head CT without any acute intracranial process but did show incidental finding of thickened right posterior optic globe wall seen on prior exams. Head/neck CTA without any significant stenosis or large vessel occlusion. 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 There is also a partially imaged dilated pulmonary artery measuring up to 3.4 cm, seen in setting of pulmonary hypertension. NIH stroke scale 1. Discussed with stroke team/neurology. Given symptoms are nondebilitating, pt not felt to be a candidate for TPA. Given 324mg asa. Pt to be admitted for stroke. Reports drinking 1-2 beers daily, denies hx withdrawal. Has hx alcohol abuse. No smoking or drug abuse. Hospital Course Patient admitted to telemetry; overnight monitor showed no dysrhythmias. Seen by Neurology. .. MR consistent with acute infarct of the anterior right insula plantar aspect of the right frontal lobe. 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 2D echo failed to demonstrate clot; neurology recommends aspirin high-dose Lipitor. On the day of discharge patient is stable from a symptomatic standpoint will be discharged with the addition of aspirin 81 mg daily and Lipitor 80 mg daily. He will follow-up with his PCP in 1-2 weeks. He should have ENT follow-up to reassess his vocal cords Time Spent with Patient Time attestation: Total time managing care of this patient today ____ minutes. Discharge coordination time: Greater than 30 minutes Quality: Safe Use of Opioids Does Pt have an Active Cancer Diagnosis on the Problem List?: No Quality: Stroke Does the patient have a stroke diagnosis?: Yes Reason for No Anti-thrombotic at DC: Drug treatment not indicated Reason for No Anticoagulant at DC: N/A - Med Ordered Reason Not Initiating IV-Tpa: Not indicated Reason for No Anti-thrombotic by Day Two: Not indicated Reason for No Statin at DC: N/A - Med Ordered Physical Exam Vital Signs: Vital Signs: Last Vital Signs Temp 98.9 F 10/05/22 11:28 Pulse 63 10/05/22 11:28 Resp 16 10/05/22 11:28 BP 153/79 H 10/05/22 11:28 Pulse Ox 96 10/05/22 11:28 O2 Del Method 10/05/22 11:28 BMI result Body Mass Index 36.3 Const: Other: Awake alert no acute distress Resp: Other: Clear to auscultation bilaterally no rales rhonchi wheezes Cardio: Other: No S4; positive S1-S2; no S3 murmurs rubs or gallops GI: Other: Soft nontender nondistended normoactive bowel sounds Neuro: Other: Mild dysarthria, mild left-sided facial flatness. Otherwise cranial nerves 2-12 grossly intact. Motor 5/5 all extremities sensation intact Extrem: Other: No edema bilaterally DS: Data Data Completed and Pending Labs on day of discharge: Laboratory Results - last 24 hr 10/04/22 10/04/22 10/04/22 13:56 13:56 13:56 WBC 3.9 L RBC 3.19 L Hgb 12.7 L Hct 35.4 L MCV 111.0 H MCH 39.8 H MCHC 35.9 RDW 13.2 Plt Count 260 MPV 9.3 L Immature Gran % (Auto) 0.3 Neut % (Auto) 66.8 Lymph % (Auto) 20.4 [place] % (Auto) 8.1 Eos % (Auto) 4.1 H Baso % (Auto) 0.3 Lymph # (Auto) 0.8 L [place] # (Auto) 0.3 Eos # (Auto) 0.2 Baso # (Auto) 0.0 Abs Immat Gran (auto) 0.01 Absolute Neuts (auto) 2.6 Absolute Nucleated RBC 0.000 Nucleated RBC % (auto) 0.0 PT 11.5 INR 1.0 APTT 30.1 Sodium Potassium Chloride Carbon Dioxide Anion Gap BUN Creatinine Estim Creat Clear Calc Estimated GFR POC Glucose Random Glucose Calcium Total Bilirubin AST ALT Alkaline Phosphatase Troponin I High Sens 59.9 H Total Protein Albumin Triglycerides Cholesterol LDL Cholesterol, Calc HDL Cholesterol Vitamin B12 Folate COVID-19 (PATSY) COVID-19 Clin Com 10/04/22 10/04/22 10/04/22 13:56 14:45 15:44 WBC RBC Hgb Hct MCV MCH MCHC RDW Plt Count MPV Immature Gran % (Auto) Neut % (Auto) Lymph % (Auto) [place] % (Auto) Eos % (Auto) Baso % (Auto) Lymph # (Auto) [place] # (Auto) Eos # (Auto) Baso # (Auto) Abs Immat Gran (auto) Absolute Neuts (auto) Absolute Nucleated RBC Nucleated RBC % (auto) PT INR APTT Sodium 139 Potassium 4.2 Chloride 110 H Carbon Dioxide 20 L Anion Gap 13 BUN 24 H Creatinine 1.26 Estim Creat Clear Calc 76.8 Estimated GFR 57 POC Glucose Random Glucose 106 Calcium 9.0 Total Bilirubin 1.2 H AST 11 ALT 10 Alkaline Phosphatase 93 Troponin I High Sens 61.6 H Total Protein 6.1 L Albumin 3.8 Triglycerides 103 Cholesterol 143 LDL Cholesterol, Calc 84 HDL Cholesterol 39 Vitamin B12 < 148 L Folate 18.6 COVID-19 (PATSY) Negative COVID-19 Clin Com See Note 10/04/22 10/04/22 10/04/22 18:03 19:28 21:51 WBC RBC Hgb Hct MCV MCH MCHC RDW Plt Count MPV Immature Gran % (Auto) Neut % (Auto) Lymph % (Auto) [place] % (Auto) Eos % (Auto) Baso % (Auto) Lymph # (Auto) [place] # (Auto) Eos # (Auto) Baso # (Auto) Abs Immat Gran (auto) Absolute Neuts (auto) Absolute Nucleated RBC Nucleated RBC % (auto) PT INR APTT Sodium Potassium Chloride Carbon Dioxide Anion Gap BUN Creatinine Estim Creat Clear Calc Estimated GFR POC Glucose 109 155 H 102 Random Glucose Calcium Total Bilirubin AST ALT Alkaline Phosphatase Troponin I High Sens Total Protein Albumin Triglycerides Cholesterol LDL Cholesterol, Calc HDL Cholesterol Vitamin B12 Folate COVID-19 (PATSY) COVID-19 Clin Com 10/05/22 10/05/22 10/05/22 05:55 05:55 07:26 WBC 4.4 L RBC 3.17 L Hgb 12.5 L Hct 35.1 L MCV 110.7 H MCH 39.4 H MCHC 35.6 RDW 13.2 Plt Count 258 MPV 9.6 Immature Gran % (Auto) 0.2 Neut % (Auto) 52.4 Lymph % (Auto) 32.1 [place] % (Auto) 9.6 Eos % (Auto) 4.8 H Baso % (Auto) 0.9 Lymph # (Auto) 1.4 [place] # (Auto) 0.4 Eos # (Auto) 0.2 Baso # (Auto) 0.0 Abs Immat Gran (auto) 0.01 Absolute Neuts (auto) 2.3 Absolute Nucleated RBC 0.000 Nucleated RBC % (auto) 0.0 PT INR APTT Sodium 139 Potassium 3.9 Chloride 109 H Carbon Dioxide 18 L Anion Gap 16 BUN 22 H Creatinine 1.02 Estim Creat Clear Calc 83.9 Estimated GFR > 60 POC Glucose 107 Random Glucose 96 Calcium 8.7 Total Bilirubin AST ALT Alkaline Phosphatase Troponin I High Sens Total Protein Albumin Triglycerides Cholesterol LDL Cholesterol, Calc HDL Cholesterol Vitamin B12 Folate COVID-19 (PATSY) COVID-19 Clin Com 10/05/22 11:46 WBC RBC Hgb Hct MCV MCH MCHC RDW Plt Count MPV Immature Gran % (Auto) Neut % (Auto) Lymph % (Auto) [place] % (Auto) Eos % (Auto) Baso % (Auto) Lymph # (Auto) [place] # (Auto) Eos # (Auto) Baso # (Auto) Abs Immat Gran (auto) Absolute Neuts (auto) Absolute Nucleated RBC Nucleated RBC % (auto) PT INR APTT Sodium Potassium Chloride Carbon Dioxide Anion Gap BUN Creatinine Estim Creat Clear Calc Estimated GFR POC Glucose 113 Random Glucose Calcium Total Bilirubin AST ALT Alkaline Phosphatase Troponin I High Sens Total Protein Albumin Triglycerides Cholesterol LDL Cholesterol, Calc HDL Cholesterol Vitamin B12 Folate COVID-19 (PATSY) COVID-19 Clin Com Discharge Plan Discharge Anticipated Discharge Date/Time: 10/05/22 13:54 Patient Disposition: Home, Self-Care Discharge Diagnosis: Acute CVA Referrals: Physician,Unknown J [Primary Care Provider] - 1 Week Discharge Medications: New atorvastatin 80 mg Tablet 80 mg PO DAILY Qty: 30 0RF aspirin 81 mg Tablet,Delayed Release (Dr/Ec) 81 mg PO DAILY Qty: 30 0RF Continued ferrous sulfate 325 mg (65 mg iron) Tablet,Delayed Release (Dr/Ec) 0 mg PO DAILY metformin 500 mg tablet 500 mg PO DAILY 30 Days Qty: 30 2RF No Action (DME) Underpads Regular Pad See Rx Instructions .Route Qty: 120 3RF Rx Instructions: Twice daily As directed, 60 days Discharge Orders: Discharge Order (Routine); Ordered 10/05/22 Ordered By: Tony Troncoso Diet: Advance to usual diet Activity on Discharge: As tolerated Stand Alone Forms: Patient Portal Discharge page Care Plan Goals: Continue all medicines taken prior to hospitalization. Add aspirin 81 mg daily and Lipitor 80 mg daily to her medical regimen Health Concerns: Follow-up with PCP at next available appointment Plan of Treatment: Encourage compliance with all meds Assessment: See discharge summary
--- NOTE | 2022-10-05 14:47 | MHC.CM.PN ---
pt dcd home with hvns for speech
--- NOTE | 2022-11-03 13:50 | W.MHC.F2F ---
Service Date Service Date: 11/03/22 Encounter Date of encounter: 10/05/22 Encounter: Acute hospitalization Reasons for Services Signs and symptoms assessed: Patient with new CVA; monitor neuro signs and assist with medication management Reason for jail: neurological assessment, medication management, medication treatment and teach disease management Homebound: Leaving the home is medically contraindicated at this time without the asist of a device and/or another person due th the listed conditions above and below. Reason homebound: unsteady gait / fall risk, poor balance / fall risk and weakness related to hospital stay Certification: Based on the above findings, I certify that this patient is confined to the home and needs intermittent jail care, physical therapy and/or speech therapy, or continues to need occupational therapy. The patient is under my care, and I have initiated the establishment of the plan of care. The patient will be followed by a physician who will periodically review the plan of care. Time Spent With Patient Time: Total time managing care of this patient today ____ minutes.
== END 2022-10-05 15:22 | disposition home health service (06) | DRG 65 ==
LOC: HO.ED 14:09 → HO.EDOVER 16:02 → HO.IMC 18:02
PROVIDERS: Admitting Provider Physician Assistant; Emergency Provider Emergency Medicine; PCP Family Medicine; Visit Provider Hospitalist
DX: I63.411 Cerebral infarction due to embolism of right middle cerebral artery (principal); Z68.42 Body mass index [BMI] 45.0-49.9, adult; R29.810 Facial weakness; R29.702 NIHSS score 2; J38.01 Paralysis of vocal cords and larynx, unilateral; N40.0 Benign prostatic hyperplasia without lower urinary tract symptoms; E66.01 Morbid (severe) obesity due to excess calories; D51.9 Vitamin B12 deficiency anemia, unspecified; E11.9 Type 2 diabetes mellitus without complications; I10 Essential (primary) hypertension; R47.81 Slurred speech; Z79.84 Long term (current) use of oral hypoglycemic drugs; Z79.899 Other long term (current) drug therapy
CPT/HCPCS: 36415; 70450; 70496; 70498; 70551; 80048; 80053; 80061; 82607; 82746; 82947; 84484; 85025; 85610; 85730; 87635; 93005; 93306; 97161; 97167; 99285; J1650; Q9957; Q9967

== ENCOUNTER 2022-10-12 17:08 | Emergency (ER) | payer MEDICARE, MEDICAID, SELFPAY ==
[2022-10-12 17:20] VITALS: BP 175/80; PULSE 74; RESP 17; TEMP 36.6; O2SAT 98; BMI 37.2
[2022-10-12 17:52] VITALS: BP 145/77; PULSE 72; RESP 17
--- NOTE | 2022-10-12 17:52 | ED_ITS ---
HPI - General Adult General Chief complaint: General Medical Stated complaint: High B/P , Stroke on 10/05 Source: patient and family Mode of arrival: ambulatory Limitations: no limitations History of Present Illness HPI narrative: Patient is a 66-year-old male with past medical history of gdp-tqmnzqu-[id number] type 2 diabetes, hypertension, hyperlipidemia, BPH, chronic macrocytic anemia, obesity who presents emergency department with family for evaluation of hypertension. Patient was recently admitted to hospital 10/04/2022 and discharged 10/05/2022 4 CVA; MRI revealing acute infarct of the anterior right insula and lateral aspect of the right frontal lobe, for which she was started on atorvastatin and aspirin. Family reports no concerns about patient's presentation, patient has been without any complaints. Visiting nurse services have been in the home, and advised him to come to the emergency department due to elevated blood pressure readings, uncertain of exact reading. Upon initially arriving to the emergency department today, blood pressure was 175/80. At 17:45 I evaluated patient personally approximately 30 minutes later, blood pressure was 145/77, he has no focal neurological deficits at the time of examination, facial asymmetry, tongue midline, no pronator drift, DTRs intact. NIH stroke score 0. He has an appointment to follow-up with primary care provider 10/26/2022 Denies headache, dizziness, lightheadedness, neck pain, chest pain, shortness of breath, difficulty breathing, nausea, vomiting, numbness or tingling. Related Data Home Medications Medication Instructions Recorded Confirmed ferrous sulfate 325 mg (65 mg 0 mg PO DAILY 10/04/22 10/04/22 iron) tablet,delayed release Previous Rx's Medication Instructions Recorded incontinence pad, liner, disp #120 ea 07/19/22 (Underpads Regular) metformin 500 mg tablet 500 mg PO DAILY 30 days #30 tabs 07/19/22 aspirin 81 mg tablet,delayed 81 mg PO DAILY #30 tabs 10/05/22 release atorvastatin 80 mg tablet 80 mg PO DAILY #30 tabs 10/05/22 Allergies Allergy/AdvReac Type Severity Reaction Status Date / Time No Known Allergies Allergy Verified 08/10/22 15:06 [No Known Allergies*] Review of Systems Review of Systems: Yes all other systems are reviewed and are negative PMFSH Past Medical History Attestation statement: The following information was validated with the patient. Source: old records reviewed Surgical History Hx of excision of dermoid cyst Social History Social History (Updated 10/04/22 @ 16:16 by RUBEN Montoya) Household Members: None Housing: Apartment Do you presently have visiting nurse or other home services: No Unable to assess alcohol history related to: Unknown Alcohol intake: current Alcohol intake frequency: 0-2 drinks per day Alcohol type: beer Patient Tobacco Use Status: Never used Tobacco e-Cigarette/Vaping Use: Never Used Second Hand Smoke Exposure: No service: No Current occupational status: disabled Current occupational exposures/hazards: No Hearing needs: Yes Physical Exam ED Vital Signs: Vital Signs - 24 hr 10/12/22 17:20 10/12/22 17:52 Temperature 98 F Pulse Rate 74 72 Respiratory Rate 17 17 Blood Pressure 175/80 H 145/77 H Pulse Oximetry 98 Oxygen Delivery Method Room Air BMI result Body Mass Index 37.2 Appearance: Alert.?Oriented to person, place and time. No acute distress.?Normal affect. Eyes: Pupils equal, round and reactive to light.? ENT: Pharynx normal.?? Neck: Normal inspection.? Neck supple.?? CVS: Heart sounds normal. Normal heart rate and rhythm.? Pulses normal.?? Respiratory: No respiratory distress.? Lung sounds clear to auscultation bilaterally?? Abdomen: Soft and non-tender. Normoactive bowel sounds. Skin: Skin warm and dry.? Normal skin color.? ?? Extremities: No lower extremity edema.? Neuro: Moves all extremities spontaneously. Sensation intact bilaterally. CN II- XII intact. No focal neuro deficits. Ambulates with normal steady gait. NIH Stroke Scale Time: 17:45 Level of Consciousness: Alert Level of Consciousness Questions: Answers both questions correctly Level of Consciousness Commands: Performs both tasks correctly Best Gaze: Normal Visual: No visual loss Facial Palsy: Normal Motor Arm (Right): No drift Motor Arm (Left): No drift Motor Leg (Right): No drift Motor Leg (Left): No drift Limb Ataxia: Absent Sensory: Normal Best Language: No aphasia Dysarthia: Normal Extinction and Inattention: No abnormality Score: 0 Course Course Course Narrative: This is an RME: Additional HPI, ROS, PE not included below will be deferred to primary provider. Patient is a 66-year-old male with past medical history of aii-ktejyvi-yrryzrval type 2 diabetes, hypertension, hyperlipidemia, BPH, chronic macrocytic anemia, obesity who presents emergency department with family for evaluation of hypertension. Patient was recently admitted to hospital 10/04/2022 and discharged 10/05/2022 4 CVA; MRI revealing acute infarct of the anterior right insula and lateral aspect of the right frontal lobe, for which she was started on atorvastatin and aspirin. Family reports no concerns about patient's presentation, patient has been without any complaints. Visiting nurse services have been in the home, and advised him to come to the emergency department due to elevated blood pressure readings, uncertain of exact reading. Upon initially arriving to the emergency department today, blood pressure was 175/80. At 17:45 I evaluated patient personally approximately 30 minutes later, blood pressure was 145/77, he has no focal neurological deficits at the time of examination, facial asymmetry, tongue midline, no pronator drift, DTRs intact. NIH stroke score 0. He has an appointment to follow-up with primary care provider 10/26/2022 Denies headache, dizziness, lightheadedness, neck pain, chest pain, shortness of breath, difficulty breathing, nausea, vomiting, numbness or tingling. Plan: At this time, based on history and physical examination, this is consistent with asymptomatic hypertension, will re-evaluate patient in 30 minutes-1 hour, if blood pressure remains mildly elevated in continues without symptoms or focal neurological deficits, will discharge patient home to follow- up primary care provider. I reviewed this case with ED attending Dr. Alicea, who agrees with plan of care. Reevaluation(s) Reevaluation #1: patient at this time remains with asymptomatic hypertension 142/77, pulse 72. Blood pressures consistent with readings while admitted in hospital. Low suspicion for an acute process such as ACS, LENA as he is without any physical complaints. No signs of end-organ damage. No focal neurological deficits. Discussed with patient and family plan of care for discharge home, outpatient follow-up with primary care provider. We discussed worrisome signs and symptoms that would warrant re-evaluation in the emergency department. Time: 18:52 Medical Decision Making Differential Diagnosis Differential Diagnoses: The differential diagnosis associated with the presentation includes (Essential hypertension, pain, anxiety, LENA, ACS) External Record Review External record reviewed: Inpatient record Chronic Conditions Patient?s care impacted by: Diabetes and Hypertension Discharge Plan Discharge Clinical Impression: Hypertension Patient Disposition: Home, Self-Care Instructions: Heart Healthy Diet (ED), How to Take a Blood Pressure (ED), Low- Sodium Diet (ED), Hypertension in the Older Adult (ED) Additional Instructions: As we discussed, please follow-up with primary care provider as scheduled. Keep a log of blood pressure readings. Return back to emergency department with any new or worsening symptoms or concerns. This includes but is not limited to headache, dizziness, lighthe adedness, neck pain, chest pain, shortness of breath, difficulty breathing, numbness or tingling of the arms or legs, confusion, weakness, unsteady gait, changes to speech, facial drooping. Prescriptions: No Action ferrous sulfate 325 mg (65 mg iron) Tablet,Delayed Release (Dr/Ec) 0 mg PO DAILY atorvastatin 80 mg Tablet 80 mg PO DAILY Qty: 30 0RF aspirin 81 mg Tablet,Delayed Release (Dr/Ec) 81 mg PO DAILY Qty: 30 0RF metformin 500 mg tablet 500 mg PO DAILY 30 Days Qty: 30 2RF (DME) Underpads Regular Pad See Rx Instructions .Route Qty: 120 3RF Rx Instructions: Twice daily As directed, 60 days Referrals: Physician,Unknown J [Primary Care Provider] -
--- NOTE | 2022-10-12 17:53 | PC.NURSE ---
re eval done w Cook Pie Attila present, no complaints
[2022-10-12 18:53] VITALS: BP 152/77
== END 2022-10-12 19:03 | disposition home or self-care (01) ==
LOC: HO.ED 19:00
PROVIDERS: Emergency Provider Emergency Medicine
DX: I10 Essential (primary) hypertension (principal); E11.9 Type 2 diabetes mellitus without complications; E78.5 Hyperlipidemia, unspecified; D53.9 Nutritional anemia, unspecified; Z79.82 Long term (current) use of aspirin; Z79.899 Other long term (current) drug therapy; Z79.02 Long term (current) use of antithrombotics/antiplatelets; Z79.84 Long term (current) use of oral hypoglycemic drugs
CPT/HCPCS: 99282

== ENCOUNTER 2022-11-09 16:23 | Outpatient (REF) | payer MEDICARE, MEDICAID, SELFPAY ==
[2022-11-10 12:27] LABS: Appearance Urine Clear; Color Urine Yellow; Glucose Urine UA Negative (Negative); Leukocyte Esterase Urine Trace (Negative); Nitrite Urine Negative (Negative); PH 5.5 (5.0-9.0); Specific Gravity - Urine 1.025 (1.005-1.025); UMIC TRIGGER UA YES; Urine Blood Negative (Negative); Urine Ketones Trace mg/dL (Negative); Urine Protein Negative (Neg-Trace)
[2022-11-10 12:30] LABS: Bacteria Urine None Seen (None Seen); Hyaline Casts Urine 0-2 /LPF (0-2); RBC Urine 0-2 /HPF (0-2); Squamous Epithelial Cell Urine 0-2 /HPF (0-2)
[2022-11-10 13:50] LABS: CT PCR NOT DETECTED (Not Detect.); NG PCR NOT DETECTED (Not Detect.)
== END 2022-11-09 16:24 | disposition home or self-care (01) ==
LOC: HO.LAB 16:23
PROVIDERS: Visit Provider Nurse Practitioner Family
DX: Z20.2 Contact with and (suspected) exposure to infections with a predominantly sexual mode of transmission (principal)
CPT/HCPCS: 0353U; 81001; 81003

== ENCOUNTER → 2022-11-14 11:35 | Outpatient (BNVA) | payer MEDICARE, MEDICAID, SELFPAY | PROVIDERS: PCP Family Medicine; Referring Provider Family Medicine; Visit Provider Surgery | DX: K42.9 Umbilical hernia without obstruction or gangrene (principal); R47.9 Unspecified speech disturbances; D64.9 Anemia, unspecified; I63.9 Cerebral infarction, unspecified; E66.01 Morbid (severe) obesity due to excess calories; Z68.36 Body mass index [BMI] 36.0-36.9, adult | CPT/HCPCS: 99212 ==

== ENCOUNTER 2022-12-19 12:35 | Outpatient (REF) | payer MEDICARE, MEDICAID, SELFPAY ==
[2022-12-19 14:13] LABS: Appearance Urine Clear; Color Urine Yellow; Glucose Urine UA Negative (Negative); Leukocyte Esterase Urine Negative (Negative); Nitrite Urine Negative (Negative); PH 7.5 (5.0-9.0); Specific Gravity - Urine 1.015 (1.005-1.025); Urine Blood Negative (Negative); Urine Ketones Negative (Negative); Urine Protein Negative (Neg-Trace)
== END 2022-12-19 12:36 | disposition home or self-care (01) ==
LOC: HO.10HDLNP 12:35
PROVIDERS: Visit Provider Family Medicine
DX: Z00.00 Encounter for general adult medical examination without abnormal findings (principal); R32 Unspecified urinary incontinence
CPT/HCPCS: 81003; 87086; 87507

== ENCOUNTER → 2023-01-26 14:18 | Outpatient (BNVA) | payer MEDICARE, MEDICAID, SELFPAY | PROVIDERS: PCP Internal Medicine; Visit Provider Nurse Practitioner Family | DX: R32 Unspecified urinary incontinence (principal); R31.29 Other microscopic hematuria; R15.9 Full incontinence of feces | CPT/HCPCS: 51798; 99202 ==

== ENCOUNTER → 2023-02-01 13:14 | Outpatient (BNVA) | payer MEDICARE, MEDICAID, SELFPAY | PROVIDERS: PCP Internal Medicine; Visit Provider Physician Assistant | DX: R19.5 Other fecal abnormalities (principal) | CPT/HCPCS: 99202 ==

== ENCOUNTER 2023-02-08 16:13 | Outpatient (REF) | payer MEDICARE, MEDICAID, SELFPAY ==
--- NOTE | ~2023-02-08 | US_ITS ---
EXAMINATION: US RETROPERITONEAL COMPLETE (RENAL) CLINICAL INFORMATION: Unspecified urinary incontinence. COMPARISON: None available. TECHNIQUE: Real-time imaging of the kidneys and bladder. FINDINGS: RIGHT KIDNEY: 10.5 x 5.9 x 6.0 cm (SAG x AP x TRV). The kidney is normal in size, contour, and echogenicity. Renal cortical thickness is normal. No calculi or focal parenchymal lesions. No hydronephrosis. LEFT KIDNEY: 10.3 x 4.6 x 4.4 cm (SAG x AP x TRV). The kidney is normal in size, contour, and echogenicity. Renal cortical thickness is normal. No renal calculi or hydronephrosis. 3.7 cm simple cyst in the lower pole. BLADDER: Partially distended. Prevoid volume 153 mL. Post void volume 16 mL. The prostate volume is 23.4 mL. US/US retroperitoneal comp IMPRESSION: No nephrolithiasis or hydronephrosis.
[2023-02-08 19:34] LABS: CDiff Gene PCR NEGATIVE (Negative)
[2023-02-09 13:59] LABS: Adenovirus F 40/41 Not Detected (Not Detect.); Astrovirus Not Detected (Not Detect.); Campylobacter Not Detected (Not Detect.); Cryptosporidium Not Detected (Not Detect.); Cyclospora cayetanensis Not Detected (Not Detect.); E. coli EAEC Not Detected (Not Detect.); E. coli EPEC Detected (Not Detect.); E. coli ETEC Not Detected (Not Detect.); E. coli STEC Not Detected (Not Detect.); Entamoeba histolytica Not Detected (Not Detect.); Giardia lamblia Not Detected (Not Detect.); Norovirus GI/GII Not Detected (Not Detect.); Plesiomonas shigelloides Not Detected (Not Detect.); Rotavirus A Not Detected (Not Detect.); Salmonella Not Detected (Not Detect.); Sapovirus Not Detected (Not Detect.); Shigella sp./EIEC Not Detected (Not Detect.); Vibrio Not Detected (Not Detect.); Vibrio Cholerae Not Detected (Not Detect.); Yersinia enterocolitica Not Detected (Not Detect.)
== END 2023-02-08 16:14 | disposition home or self-care (01) ==
LOC: HO.US 16:13
PROVIDERS: PCP Internal Medicine; Visit Provider Nurse Practitioner Family
DX: R32 Unspecified urinary incontinence (principal)
CPT/HCPCS: 76770; 87493; 87507

== ENCOUNTER 2023-11-13 09:59 | Outpatient (REF) | payer MEDICARE, MEDICAID, SELFPAY ==
[2023-11-13 10:36] LABS: MANUAL DIFF FLAG NO
[2023-11-13 10:43] LABS: Basophils Percent Auto 0.4 % (0-2); Eosinophils Absolute Auto 0.1 X10*3/uL (0.0-0.4); Eosinophils Percent Auto 1.8 % (0-4); Hemoglobin 15.6 g/dl (14.0-18.0); Imm Gran Abs Auto 0.02 X10*3/uL (0.00-0.03); Imm Gran Pct Auto 0.3 % (0.0-0.4); Immature Retic Fraction 11.9 % (2.3-13.4); Lymphocytes Absolute Auto 1.1 X10*3/uL (1.2-4.9); Lymphocytes Percent Auto 15.6 % (20-40); Mean Corpuscular HGB Conc 32.5 g/dl (31.0-36.0); Mean Corpuscular Hemoglobin 29.5 pg (27.0-33.0); Mean Corpuscular Volume 90.7 fL (80.0-98.0); Mean Platelet Volume 9.7 fL (9.4-12.4); Monocytes Absolute Auto 0.5 X10*3/uL (0.1-1.2); Monocytes Percent Auto 7.6 % (2-11); Neutrophils Percent Auto 74.3 % (45-73); Platelet Count 256 X10*3/uL (160-400); Red Blood Count 5.29 X10*6/uL (4.60-5.80); Red Cell Distribution Width 12.7 % (11.0-16.0); Retic HGB Equivalent 34.2 pg (30.0-35.0); Reticulocyte Percent 1.4 % (0.5-1.8); Reticulocytes Absolute 0.073 X10*6/uL (0.026-0.095); White Blood Count 6.7 X10*3/uL (4.8-10.8)
[2023-11-13 11:03] LABS: Estimated Average Glucose 140 mg/dL; Hemoglobin A1c % 6.5 % (<6.0)
[2023-11-13 11:24] LABS: Alanine Aminotransferase 19 U/L (0-40); Alkaline Phosphatase 131 U/L (39-117); Anion Gap 12 (12-20); Aspartate Amino Transferase 14 U/L (5-37); Bilirubin Total 0.6 mg/dL (0.0-1.0); Blood Urea Nitrogen 23 mg/dL (9-16); Calcium 9.1 mg/dL (8.4-10.2); Carbon Dioxide 23 mmol/L (22-29); Chloride 108 mmol/L (96-108); Cholesterol 129 mg/dL (<200); Estimated Glomerular Filt Rate > 60; Glucose Random 125 mg/dL (60-115); HDL Cholesterol 38 mg/dL (>40); Iron 76 mcg/dL (45-160); LDL Cholesterol Calculated 73 mg/dL (<100); Percent Iron Saturation 27 % (15-50); Potassium 4.3 mmol/L (3.3-5.1); Sodium 139 mmol/L (135-145); Total Iron Binding Capacity 280 mcg/dL (228-428); Total Protein 7.1 g/dL (6.5-8.0); Triglycerides 90 mg/dL (<150); Unsaturated Iron Binding 204 ug/dL
[2023-11-13 11:33] LABS: Creatinine Urine 43.77 mg/dL; Microalbumin Urine < 5.0 mg/L
[2023-11-13 11:48] LABS: Ferritin 185 ng/mL (20-250); Free T4 (Free Thyroxine) 0.92 ng/dL (0.71-1.85); Thyroid Stimulating Hormone 2.39 uIU/mL (0.32-4.0)
[2023-11-13 12:33] LABS: Folate 13.9 ng/mL (> or = 4.0); Prostate Specific Antigen Scr 0.49 ng/mL (<0.05-4.0); Vitamin B12 < 148 pg/mL (200-900)
== END 2023-11-13 10:00 | disposition home or self-care (01) ==
LOC: HO.10HDL 09:59
PROVIDERS: Visit Provider Internal Medicine
DX: D64.9 Anemia, unspecified (principal); E11.65 Type 2 diabetes mellitus with hyperglycemia; E78.5 Hyperlipidemia, unspecified; E78.00 Pure hypercholesterolemia, unspecified; Z12.5 Encounter for screening for malignant neoplasm of prostate
CPT/HCPCS: 36415; 80053; 80061; 82043; 82570; 82607; 82728; 82746; 83036; 83540; 84153; 84439; 84443; 85025; 85045

== ENCOUNTER 2023-11-27 13:33 | Outpatient (AMB) | payer MEDICARE, MEDICAID, SELFPAY ==
[2023-11-27 13:58] VITALS: BP 162/98; PULSE 61; O2SAT 98; BMI 37.4
--- NOTE | 2023-11-27 13:58 | A.OFFPC_ITS ---
Vital Signs 11/27/23 13:58 Height 5 ft 8 in Weight 246 lb 0.4 oz BMI 37.4 BP 162/98 H Blood Pressure Location Lt brachial Position Sitting Pulse 61 Pulse Source Pulse Oximeter Pulse Oximetry (%) 98 Oxygen Delivery Method Room Air Intake Visit Reasons: CVA/DM F/U Talend Etl Developer Required: No Allergies No Known Allergies [No Known Allergies*] Allergy (Verified 11/27/23 13:59) Medication List - Last Reconciled 11/27/23 by Ga Guthrie MD aspirin 81 mg PO DAILY atorvastatin 80 mg PO DAILY blood pressure test kit-large As directed blood sugar diagnostic (FreeStyle Lite Strips) As directed check the BS QD blood-glucose meter (FreeStyle Lite Meter kit) As directed ferrous sulfate 325 mg PO DAILY incontinence pad, liner, disp (Underpads Regular) Twice daily As directed, 60 days lancets (FreeStyle Lancets) As directed check BS QD lisinopril 10 mg PO DAILY metformin 500 mg PO DAILY 30 days methylcellulose (laxative) (Citrucel Sugar Free oral powder) 2 grams PO DAILY PRN mirabegron ER (Myrbetriq) 25 mg PO DAILY 90 days multivitamin (Super Multivitamin tablet) 1 tab PO DAILY [PULL UPS LARGE MENS As directed] Tobacco use date assessed: 11/27/23 Fall risk assessment: No Falls in past year Last assessed Fall Risk: 11/27/23 HPI CVA/DM F/U HPI Details 68-year-old obese male with cognitive im pairment, with diabetes mellitus controlled hypercholesterolemia history of CVA coming in for follow-up. Patient was last seen in December 2022. Niece interpret. decline cataract surgery on the R eye.. PAtient has cognitive impairement also and eats indicriminate eating. 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 [facility] Medical History (Updated 11/27/23 @ 14:18 by Ga Guthrie MD) Hypertension Screening for colon cancer Acute CVA (cerebrovascular accident) Anemia Morbid (severe) obesity due to excess calories Arthritis Hyperlipidemia Surgical History Pterygium Scrotal abscess Hx of excision of dermoid cyst Social History Household Members: None Housing: Apartment Do you presently have visiting nurse or other home services: No Unable to assess alcohol history related to: Unknown Alcohol intake: current Alcohol intake frequency: 0-2 drinks per day Alcohol type: beer Patient Tobacco Use Status: Never used Tobacco e-Cigarette/Vaping Use: Never Used Second Hand Smoke Exposure: No service: No Current occupational status: disabled Current occupational exposures/hazards: No Cognitive needs: No Hearing needs: Yes Vision needs: Yes Questionnaire Thrive Questionnaire Date Thrive assessed: 11/27/23 AUDIT C Alcohol Use Questionnaire (AUDIT-C) 1. How often do you have a drink containing alcohol?: 2-3 times a week 2. How many drinks containing alcohol do you have on a typical day when you are drinking?: 1 or 2 3. How often do you have six or more drinks on one occasion?: Never Total Score: 3 DIANA-7 AMB Questionnaire DIANA-7 Date DIANA - 7 assessed: 11/27/23 Source: Developed by Drs. Nate Mcdowell, Annamaria Anthony, [place] and colleagues, with an educational jessa from [employer]. Physical exam (Primary Care) Vital Signs: Oxygen Delivery Method Room Air 11/27/23 13:58 BMI result Body Mass Index 37.4 Tobacco/Smoking Status: Tobacco use Status Tobacco use date assessed 11/27/23 11/27/23 13:59 Patient Tobacco Use Status Never used Tobacco 11/27/23 13:59 e-Cigarette/Vaping Use Never Used 11/27/23 13:59 Thrive Assessment: Date of Thrive Assessment Date Thrive assessed 11/27/23 11/27/23 13:59 Const General: alert; No acute distress Eyes Conjunctivae: conjunctivae normal Resp Auscultation: clear to auscultation bilaterally Cardio Rate: regular rate Rhythm: regular rhythm GI Inspection: Yes normal to inspection Extrem General: Yes normal to inspection and No edema Assessment and Plan Assessment & Plan (1) Type 2 diabetes mellitus with hyperglycemia: Comment: Dr. Roche Code(s): E11.65 - Type 2 diabetes mellitus with hyperglycemia Plan: Decrease the amount of carbohydrate intake, pasta, bread, rice and potatoes are all sugar and that is aside from all the sweet stuff, remember that fruits are good but they are Sweet also. Hemoglobin A1c goal of less than 7.0. Patient is on metformin 500 mg once a day (2) History of CVA (cerebrovascular accident): Comment: September 2022 MRI revealing acute infarct of the anterior right insular of the right frontal lobe, left facial droop with slurred speech Code(s): Z86.73 - Personal history of transient ischemic attack (TIA), and cerebral infarction without residual deficits Plan: Control the cholesterol, weight, blood pressure, diabetes (3) Hyperlipidemia: Code(s): E78.5 - Hyperlipidemia, unspecified Plan: Avoid fried foods, chicken skin, eggs, butter margarine, pastries and meat. Be it pork or beef they have a lot of cholesterol LDL goal of less than 70 and triglyceride of less than 150. Patient is on atorvastatin 80 mg once a day continue with aspirin 81 mg once a day (4) BPH (benign prostatic hyperplasia): Code(s): N40.0 - Benign prostatic hyperplasia without lower urinary tract symptoms Plan: Patient has been placed on Myrbetriq (5) Hypertension: Code(s): I10 - Essential (primary) hypertension (6) B12 deficiency: Code(s): E53.8 - Deficiency of other specified B group vitamins (7) Umbilical hernia: Code(s): K42.9 - Umbilical hernia without obstruction or gangrene Orders: Referrals General Surgery Referral K42.9 - Umbilical hernia without obstruction or gangrene Medications: New lisinopril 10 mg PO DAILY 30 tabs 4RF I10 - Essential (primary) hypertension cyanocobalamin (vitamin B-12) 1,000 mcg PO DAILY 30 caps 4RF E53.8 - Deficiency of other specified B group vitamins Coding Level of Care Code Est Pt Level 4 (08561) Diagnoses Type 2 diabetes mellitus with hyperglycemia E11.65 History of CVA (cerebrovascular accident) Z86.73 Hyperlipidemia E78.5 BPH (benign prostatic hyperplasia) N40.0 Hypertension I10 B12 deficiency E53.8 Umbilical hernia K42.9
== END 2023-11-27 14:35 | disposition home or self-care (01) ==
PROVIDERS: PCP Internal Medicine; Visit Provider Internal Medicine
DX: E11.65 Type 2 diabetes mellitus with hyperglycemia (principal); Z86.73 Personal history of transient ischemic attack (TIA), and cerebral infarction without residual deficits; E78.5 Hyperlipidemia, unspecified; N40.0 Benign prostatic hyperplasia without lower urinary tract symptoms; I10 Essential (primary) hypertension; E53.8 Deficiency of other specified B group vitamins; K42.9 Umbilical hernia without obstruction or gangrene
CPT/HCPCS: 99214

== ENCOUNTER 2023-12-13 13:51 | Outpatient (AMB) | payer MEDICARE, MEDICAID, SELFPAY ==
--- NOTE | 2023-12-13 14:07 | A.OFFVIS_ITS ---
Intake Vital Signs 12/13/23 14:11 Height 5 ft 8 in Weight 249 lb BMI 37.9 BP 181/95 H Blood Pressure Location Rt brachial Position Sitting Pulse 69 Intake Visit Reasons: Umbilical hernia Intake Note: Patient referred by Dr. Guthrie for umbilical hernia. Has been present for more than 5 yrs. Patient c/o: reports hernia after stair fall. Agricultural Research Technologist Required: No Accompanied by: niece/ EAR NOSE THROAT SURGEON Pilar Allergies No Known Allergies [No Known Allergies*] Allergy (Verified 12/13/23 14:14) HPI HPI Comments History of Present Illness Details Patient presents with his niece who is his property caretaker with a several year history of an umbilical hernia which is increasing in size become more symptomatic. Patient otherwise tolerates a diet, has regular bowel habits. He does heavy lifting at his place of employment. Chart was reviewed and patient evaluated [facility] Medical History (Updated 11/27/23 @ 14:15 by Ga Guthrie MD) Hypertension Screening for colon cancer Acute CVA (cerebrovascular accident) Anemia Morbid (severe) obesity due to excess calories Arthritis Hyperlipidemia Surgical History (Updated 12/13/23 @ 14:34 by Jayce Guerrero MD) Pterygium Scrotal abscess Hx of excision of dermoid cyst Social History Household Members: None Housing: Apartment Do you presently have visiting nurse or other home services: No Unable to assess alcohol history related to: Unknown Alcohol intake: current Alcohol intake frequency: 0-2 drinks per day Alcohol type: beer Patient Tobacco Use Status: Never used Tobacco e-Cigarette/Vaping Use: Never Used Second Hand Smoke Exposure: No service: No Current occupational status: disabled Current occupational exposures/hazards: No Cognitive needs: No Hearing needs: Yes Vision needs: Yes Physical Exam Vital Signs: Last Vital Signs Pulse 69 12/13/23 14:11 BP 181/95 H 12/13/23 14:11 BMI result Body Mass Index 37.9 Chest Other: Chest breath sounds bilaterally HS were then GI Other: Patient was examined both supine and standing with Valsalva. Patient has a enormous reducible umbilical hernia measuring approximately 3 cm defect with an enormous hernia sac extruding. Abdomen otherwise very corpulent benign. Bilateral groin exam negative. Assessment & Plan Assessment & Plan (1) Umbilical hernia: Code(s): K42.9 - Umbilical hernia without obstruction or gangrene Plan Risks, benefits, alternatives of open large umbilical hernia. With mesh reviewed the patient and his niece and included but not limited to bleeding, infection, recurrence, numbness, pain, scarring, bowel injury and the patient was to proceed. All questions answered. Arrangements were made for this. Coding Level of Care Code New Pt Level 5 (64973) Diagnoses Umbilical hernia K42.9
[2023-12-13 14:11] VITALS: BP 181/95; PULSE 69; BMI 37.9
== END 2023-12-13 14:25 | disposition home or self-care (01) ==
PROVIDERS: PCP Internal Medicine; Referring Provider Internal Medicine; Visit Provider Surgery
DX: K42.9 Umbilical hernia without obstruction or gangrene (principal)
CPT/HCPCS: 99204

== ENCOUNTER → 2023-12-13 13:51 | Outpatient (BNVA) | payer MEDICARE, MEDICAID, SELFPAY | PROVIDERS: PCP Internal Medicine; Referring Provider Internal Medicine; Visit Provider Surgery | DX: K42.9 Umbilical hernia without obstruction or gangrene (principal) | CPT/HCPCS: 99202 ==

== ENCOUNTER → 2024-01-05 06:12 | Day surgery (SDC) | payer MEDICARE, MEDICAID, SELFPAY ==
--- NOTE | 2024-01-03 14:55 | HO.ANESPROP2 ---
Documented by User: Wendy Mitchell NP 01/03/24 14:58 HPI - Anesthesia Eval Consult details Narrative: 68yo M for Open Repair LG Hernia Umbilical Reducible with mesh CVA 09/2022 with residual impairment PMFSH Active Problems Active Problems: All Active Problems Umbilical hernia (Acute) B12 deficiency (Acute) Hypertension (Acute) Change in consistency of stool (Acute) Encounter for screening colonoscopy (Acute) Microscopic hematuria (Acute) Cognitive impairment (Acute) History of CVA (cerebrovascular accident) (Acute) Obesity (Acute) Type 2 diabetes mellitus with hyperglycemia (Acute) Fecal incontinence (Acute) Hyperlipidemia (Acute) Arthritis (Acute) Morbid (severe) obesity due to excess calories (Acute) Anemia (Acute) Impaired speech (Acute) Umbilical hernia (Acute) Urinary incontinence (Acute) BPH (benign prostatic hyperplasia) (Acute) Past Medical History Medical History Hypertension Screening for colon cancer Acute CVA (cerebrovascular accident) Anemia Morbid (severe) obesity due to excess calories Arthritis Hyperlipidemia Surgical History Surgical History Pterygium Scrotal abscess Hx of excision of dermoid cyst Social History Social History Household Members: None Housing: Apartment Do you presently have visiting nurse or other home services: No Unable to assess alcohol history related to: Unknown Alcohol intake: current Alcohol intake frequency: holidays/special occasions only Alcohol type: beer Patient Tobacco Use Status: Never used Tobacco e-Cigarette/Vaping Use: Never Used Second Hand Smoke Exposure: No Use of substances other than those prescribed or required for medical reasons: No Are you DNR?: No Advance Directives: No Advance Directives Information Provided: Yes service: No Current occupational status: disabled Current occupational exposures/hazards: No Cognitive needs: No Hearing needs: Yes Vision needs: Yes Meds Allergies Allergy/AdvReac Type Severity Reaction Status Date / Time No Known Allergies Allergy Verified 12/13/23 14:14 [No Known Allergies*] Home Medications ?Medication ?Instructions ?Recorded ?Confirmed ?Last Taken ?Type multivitamin (Super Multivitamin 1 tab PO DAILY 12/26/22 11/27/23 Unknown History tablet) Exam Pertinent Lab Results Pertinent Lab Results: Laboratory Tests 11/13/23 10:05 WBC 6.7 Hgb 15.6 D Hct 48.0 D Plt Count 256 Sodium 139 Potassium 4.3 Chloride 108 Carbon Dioxide 23 BUN 23 H Creatinine 0.87 Narrative Narrative: ECHO 2022 Conclusions: - 1. Low normal LV systolic function with impaired relaxation filling pattern 2. Normal cardiac valvular Doppler 3. Awhn-py-nbdzhovd atherosclerotic plaques noted in the ascending as well as the arch of the aorta 4. No gross pericardial effusion MR head/brain wo con 09/2022 IMPRESSION: 1. Acute infarct of the anterior right insula and lateral aspect of the right frontal lobe. No evidence of hemorrhagic transformation. 2. Mild underlying microangiopathy and generalized cerebral volume loss. 3. 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 Assessment and Plan Assessment Anesthesia Assessment: Chart Reviewed Documented by User: Manuel Douglas MD 01/05/24 07:39 [facility] Past Medical History Medical History Hypertension Screening for colon cancer Acute CVA (cerebrovascular accident) Anemia Morbid (severe) obesity due to excess calories Arthritis Hyperlipidemia Functional capacity: independent ambulation Family History Family history of problems with anesthesia: No Surgical History Surgical History Pterygium Scrotal abscess Hx of excision of dermoid cyst History of Problems with Anesthesia: No Social History Social History Household Members: None Housing: Apartment Do you presently have visiting nurse or other home services: No Unable to assess alcohol history related to: Unknown Alcohol intake: current Alcohol intake frequency: holidays/special occasions only Alcohol type: beer Patient Tobacco Use Status: Never used Tobacco e-Cigarette/Vaping Use: Never Used Second Hand Smoke Exposure: No Use of substances other than those prescribed or required for medical reasons: No Are you DNR?: No Advance Directives: No Advance Directives Information Provided: Yes service: No Current occupational status: disabled Current occupational exposures/hazards: No Cognitive needs: No Hearing needs: Yes Vision needs: Yes Meds Allergies Allergy/AdvReac Type Severity Reaction Status Date / Time No Known Allergies Allergy Verified 12/13/23 14:14 [No Known Allergies*] Home Medications ?Medication ?Instructions ?Recorded ?Confirmed ?Last Taken ?Type multivitamin (Super Multivitamin 1 tab PO DAILY 12/26/22 11/27/23 Unknown History tablet) Exam Airway Mallampati Class: IV TM Dist: <=3cm Neck ROM: Full Denture: Upper and Lower Heart: rrr Lungs: cta Assessment and Plan Assessment Anesthesia Assessment: Anesthesia Plan Discussed Final Anesthetic Review Family History of Problems with Anesthesia: No History of Problems with Anesthesia: No NPO: Yes ASA Class: III Final Preanesthetic Review: No Changes in Pt Med Stat, Meds/Allgs Chart Reviewed, Consent Obtained/Reviewed and Anes Risks/Benef Reviewed Patient Risk: Intermediate Procedure Risk: Intermediate Anesthetic Plan Anesthetic Plan: GA Disposition: Standard PACU
--- NOTE | 2024-01-03 15:41 | MHC.SHP ---
Pre-Procedural Eval Section A - 24 Hr Update-Section A only Date of Service: 01/05/24 The patient is an INPATIENT: No Changes since office visit: No Cold of Flu in the past 2 weeks, No New Medical Problems, No Changes in Medication and No Patient answered all questions Section B - Complete if H&P > 30 days Chief Complaint: Umbilical hernia without obstruction or gangrene Details of Present Illness: repair with mesh Allergies: Allergies Allergy/AdvReac Type Severity Reaction Status Date / Time No Known Allergies Allergy Verified 12/13/23 14:14 [No Known Allergies*] Plan I have reviewed the history and physical and performed a pertinent physical examination on my patient. No changes have occurred unless specified. Time Spent With Patient Time: Total time managing care of this patient today ____ minutes.
[2024-01-05 06:16] VITALS: BP 184/95; PULSE 86; RESP 16; TEMP 36.2; O2SAT 97; BMI 41.0
[2024-01-05] MEDS: Lactated Ringers 1,000 ML 100 ML IVCONT (06:38)
[2024-01-05 06:45] LABS: Glucose, Whole Blood 125 mg/dL (60-115)
[2024-01-05 08:46] VITALS: BP 170/95; PULSE 79; RESP 18; TEMP 37.7; O2SAT 98
[2024-01-05 08:51] VITALS: BP 166/98; PULSE 72; RESP 16; O2SAT 93
[2024-01-05 08:56] VITALS: BP 170/95; PULSE 77; RESP 16; O2SAT 99
[2024-01-05 09:01] VITALS: BP 155/92; PULSE 76; RESP 16; O2SAT 93
[2024-01-05 09:16] VITALS: BP 145/85; PULSE 77; RESP 16; TEMP 36.5; O2SAT 95
--- NOTE | 2024-01-05 09:31 | W.PM.OPN ---
Operative Note Operative Note Date of Service: 01/05/24 Narrative: Preoperative diagnosis: [] Massive incarcerated umbilical hernia Postop diagnosis: [] The same Procedure [] open umbilical herniorrhaphy with Bard mesh Surgeon: [] Cesar Fruit And Vegetable Packer: [] Sridhar Type of Anesthesia: [] General Indication for surgery: [] Patient presents with an enormous extruding incarcerated umbilical hernia with omental contents. Defect measured approximately 5 cm. Findings: [] Patient brought to the operating room, placed on operative table in supine position, after an adequate level of general anesthesia was induced, the patient's abdomen was prepped and draped in usual sterile fashion. Using a infraumbilical curvilinear incision, this carried down through skin, subcutaneous tissue, were a massive hernia sac was identified and circumferentially dissected off the posterior aspect of the protruding stretched out umbilical skin and surrounding soft tissue down to the fascia. Sac was opened circumferentially and the incarcerated omentum was partially amputated using clamp clamped, clamped, cut, tied with 2-0 Vicryl sutures. Resected omentum and sac was sent to pathology. Fascia margins were circumferentially cleared. An appropriately sized Bard mesh was placed in the defect and circumferentially sutured to the fascia using interrupted 0 Ethibond suture. At completion of the procedure, mesh was in good position with no tension or gallops. Wound was irrigated, and secured hemostasis. It was closed in the following manner; posterior aspect of the umbilicus Jose was tacked to the wound floor using interrupted 3-0 Vicryl sutures. Subcutaneous interrupted 3-0 Vicryl sutures followed by running subcuticular 4-0 Vicryl sutures were placed. Steri-Strips and sterile dressings were applied. Wound was infiltrated 0.5% Marcaine at completion. Sponge, needle, and instrument counts were reported correct. Patient tolerated the procedure well and emerged from anesthesia stable condition. EBL minimal
== END | disposition home or self-care (01) ==
PROVIDERS: PCP Internal Medicine; Visit Provider Surgery
PROC: (CPT 49594; principal; 2024-01-05 07:30)
DX: K42.0 Umbilical hernia with obstruction, without gangrene (principal); Z91.81 History of falling; I10 Essential (primary) hypertension; E78.5 Hyperlipidemia, unspecified; D64.9 Anemia, unspecified; M19.90 Unspecified osteoarthritis, unspecified site; E66.01 Morbid (severe) obesity due to excess calories; Z68.37 Body mass index [BMI] 37.0-37.9, adult; Z86.73 Personal history of transient ischemic attack (TIA), and cerebral infarction without residual deficits; Z79.899 Other long term (current) drug therapy; Z98.890 Other specified postprocedural states
CPT/HCPCS: 49594; 82947; 88302; C1781; J0131; J0690; J1170; J2704; J2795; J3010

== ENCOUNTER → 2024-01-05 06:12 | Outpatient (BNV) | payer MEDICARE, MEDICAID, SELFPAY | PROVIDERS: PCP Internal Medicine; Visit Provider Surgery | DX: K42.0 Umbilical hernia with obstruction, without gangrene (principal) | CPT/HCPCS: 49594 ==

== ENCOUNTER 2024-01-17 14:21 | Outpatient (AMB) | payer MEDICARE, MEDICAID, SELFPAY ==
--- NOTE | 2024-01-17 14:25 | A.OFFVIS_ITS ---
Vital Signs 01/17/24 14:32 Height 5 ft 8 in Weight 246 lb BMI 37.4 BP 123/81 Blood Pressure Location Lt brachial Position Sitting Pulse 86 Intake Visit Reasons: S/P Lg. umbilical hernia repair w/mesh Intake Note: Patient is seen in office for post op assessment post umbilical hernia repair. 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 He has minimal incisional discomfort. He has tolerating a diet. Having regular bowel habits. He is increasing his activity level [facility] Medical History Hypertension Screening for colon cancer Acute CVA (cerebrovascular accident) Anemia Morbid (severe) obesity due to excess calories Arthritis Hyperlipidemia Surgical History Umbilical hernia (01/05/24) Pterygium Scrotal abscess Hx of excision of dermoid cyst Social History Household Members: None Housing: Apartment Do you presently have visiting nurse or other home services: No Unable to assess alcohol history related to: Unknown Alcohol intake: current Alcohol intake frequency: holidays/special occasions only Alcohol type: beer Patient Tobacco Use Status: Never used Tobacco e-Cigarette/Vaping Use: Never Used Second Hand Smoke Exposure: No service: No Current occupational status: disabled Current occupational exposures/hazards: No Cognitive needs: No Hearing needs: Yes Vision needs: Yes Physical Exam Vital Signs: Last Vital Signs Pulse 86 01/17/24 14:32 BP 123/81 01/17/24 14:32 BMI result Body Mass Index 37.4 GI Other: Abdomen is soft. Wound clean dry and intact healing very well. Patient has been wearing his abdominal binder Assessment & Plan Assessment & Plan (1) Postop check: Code(s): Z09 - Encounter for follow-up examination after completed treatment for conditions other than malignant neoplasm Category: Surgical Plan Patient has been given very specific local wound instructions including avoiding strenuous activities for next few weeks time, wear the abdominal binder, and will otherwise follow-up p.r.n.. All questions answered. Coding Level of Care Code Global (35803) Diagnoses Postop check Z09
[2024-01-17 14:32] VITALS: BP 123/81; PULSE 86; BMI 37.4
== END 2024-01-17 14:41 | disposition home or self-care (01) ==
LOC: HO.HGS 14:21
PROVIDERS: PCP Internal Medicine; Visit Provider Surgery
DX: Z09 Encounter for follow-up examination after completed treatment for conditions other than malignant neoplasm (principal)
CPT/HCPCS: 99212

== ENCOUNTER → 2024-01-17 14:21 | Outpatient (BNVA) | payer MEDICARE, MEDICAID, SELFPAY | PROVIDERS: PCP Internal Medicine; Visit Provider Surgery | DX: Z09 Encounter for follow-up examination after completed treatment for conditions other than malignant neoplasm (principal) | CPT/HCPCS: 99212 ==

== ENCOUNTER 2024-01-31 13:28 | Outpatient (AMB) | payer MEDICARE, MEDICAID, SELFPAY ==
[2024-01-31 13:54] VITALS: BP 160/78; PULSE 75; O2SAT 98; BMI 36.5
--- NOTE | 2024-01-31 13:54 | A.OFFPC_ITS ---
Vital Signs 3 01/31/24 13:54 01/31/24 14:25 Height 5 ft 8 in Weight 240 lb BMI 36.5 BP 160/78 H 128/80 Blood Pressure Location Lt brachial Lt brachial Position Sitting Sitting Pulse 75 Pulse Source Pulse Oximeter Pulse Oximetry (%) 98 Oxygen Delivery Method Room Air Intake Visit Reasons: HTN, DM Allergies No Known Allergies [No Known Allergies*] Allergy (Verified 01/31/24 13:54) Medication List - Last Reconciled 01/31/24 by Ga Guthrie MD aspirin 81 mg PO DAILY atorvastatin 80 mg PO DAILY blood pressure test kit-large As directed blood sugar diagnostic (FreeStyle Lite Strips) As directed check the BS QD blood-glucose meter (FreeStyle Lite Meter kit) As directed cyanocobalamin (vitamin B-12) 1,000 mcg PO DAILY ferrous sulfate 325 mg PO DAILY hydrocodone-acetaminophen 5-325 mg 1 tab PO Q4-6H PRN incontinence pad, liner, disp (Underpads Regular) Twice daily As directed, 60 days lancets (FreeStyle Lancets) As directed check BS QD lisinopril 10 mg PO DAILY metformin 500 mg PO DAILY 30 days methylcellulose (laxative) (Citrucel Sugar Free oral powder) 2 grams PO DAILY PRN mirabegron ER (Myrbetriq) 25 mg PO DAILY 90 days multivitamin (Super Multivitamin tablet) 1 tab PO DAILY [PULL UPS LARGE MENS As directed] Tobacco use date assessed: 11/27/23 Fall risk assessment: No Falls in past year Last assessed Fall Risk: 01/31/24 Dental Screening Dental Screen Date: 01/31/24 Did you have a dental visit in the last 12 months?: Yes Did you have a dental problem in the last 6 months where you did not have access to dental care?: No Was dental information given to patient?: Patient has dentist HPI HTN, DM 2 HPI0 Details 68-year-old obese male with diabetes juan miguel litus history of CVA hypercholesterolemia BPH hypertension last seen in 12/16/2023. Review of the notes in January 04 had a massive incarcerated umbilical hernia and an open umbilical herniorrhaphy with Bard mesh done [facility] Medical History Hypertension Screening for colon cancer Acute CVA (cerebrovascular accident) Anemia Morbid (severe) obesity due to excess calories Arthritis Hyperlipidemia Surgical History Umbilical hernia (01/05/24) Pterygium Scrotal abscess Hx of excision of dermoid cyst Social History Household Members: None Housing: Apartment Do you presently have visiting nurse or other home services: No Unable to assess alcohol history related to: Unknown Alcohol intake: current Alcohol intake frequency: holidays/special occasions only Alcohol type: beer Patient Tobacco Use Status: Never used Tobacco e-Cigarette/Vaping Use: Never Used Second Hand Smoke Exposure: No service: No Current occupational status: disabled Current occupational exposures/hazards: No Cognitive needs: No Hearing needs: Yes Vision needs: Yes Questionnaire PHQ-9 Over the last 2 weeks, how often have you been bothered by any of the following problems? 1. Little interest or pleasure in doing things: not at all 2. Feeling down, depressed, or hopeless: not at all 3. Trouble falling or staying asleep, or sleeping too much: not at all 4. Feeling tired or having little energy: not at all 5. Poor appetite or overeating: not at all 6. Feeling bad about yourself - or that you are a failure or have let yourself or your family down: not at all 7. Trouble concentrating on things, such as reading the newspaper or watching television: not at all 8. Moving or speaking so slowly that other people could have noticed. Or the opposite - being so fidgety or restless that you have been moving around a lot more than usual: not at all 9. Thoughts that you would be better off or of hurting yourself in some way: not at all Total score: 0 Depression Screening Interpretation: Negative Depression Screening Done: Yes Source: Developed by Drs. Nate Mcdowell, Annamaria Anthony, El Moy and colleagues, with an educational jessa from [employer]. Thrive Questionnaire Date Thrive assessed: 11/27/23 AUDIT C Alcohol Use Questionnaire (AUDIT-C) 1. How often do you have a drink containing alcohol?: 2-3 times a week 2. How many drinks containing alcohol do you have on a typical day when you are drinking?: 1 or 2 3. How often do you have six or more drinks on one occasion?: Never Total Score: 3 DIANA-7 AMB Questionnaire DIANA-7 Date DIANA - 7 assessed: 11/27/23 Source: Developed by Drs. Nate Mcdowell, Annamaria Anthony, El [place]oy and colleagues, with an educational jessa from [employer]. Physical exam (Primary Care) Vital Signs: Last Vital Signs Pulse 75 01/31/24 13:54 BP 160/78 H 01/31/24 13:54 Pulse Ox 98 01/31/24 13:54 Oxygen Delivery Method Room Air 01/31/24 13:54 BMI result Body Mass Index 36.5 Tobacco/Smoking Status: Tobacco use Status Tobacco use date assessed 11/27/23 01/31/24 13:56 Patient Tobacco Use Status Never used Tobacco 01/31/24 13:56 e-Cigarette/Vaping Use Never Used 01/31/24 13:56 PHQ-9: PHQ-9 Score PHQ-9: Total score 0 01/31/24 14:06 Depression Screening Interpretation: Negative Thrive Assessment: Date of Thrive Assessment Date Thrive assessed 11/27/23 01/31/24 13:56 Const General: alert; No acute distress Eyes Conjunctivae: conjunctivae normal Resp Auscultation: clear to auscultation bilaterally Cardio Rate: regular rate Rhythm: regular rhythm GI Abdomen image: 2 1. mild redness inferior to the umbilicus 3 cm around - advised to monitor Extrem General: Yes normal to inspection and No edema Results AMB Hemoglobin A1c 2 AMB Hemoglobin A1c 6.5 % Last Edit by Judit Iyer CMA on 01/31/24 14 :13 Assessment and Plan Assessment & Plan (1) Type 2 diabetes mellitus with hyperglycemia: Comment: Dr. Roche Code(s): E11.65 - Type 2 diabetes mellitus with hyperglycemia Plan: Decrease the amount of carbohydrate intake, pasta, bread, rice and potatoes are all sugar and that is aside from all the sweet stuff, remember that fruits are good but they are Sweet also. Hemoglobin A1c goal of less than 7.0. 11/14/2022 hemoglobin A1c is 6.5 patient is on metformin 500 mg once a day (2) Hyperlipidemia: Code(s): E78.5 - Hyperlipidemia, unspecified Plan: Avoid fried foods, chicken skin, eggs, butter margarine, pastries and meat. Be it pork or beef they have a lot of cholesterol 11/14/2022 last blood work LDL goal of less than 100 and triglyceride of less than 150 patient on atorvastatin 80 mg once a day (3) Obesity: Code(s): E66.9 - Obesity, unspecified Plan: Diet and exercise (4) Hypertension: Code(s): I10 - Essential (primary) hypertension Plan: Continue with blood pressure medication. Decrease salt intake and exercise patient on lisinopril 10 mg once a day (5) Umbilical hernia: Onset Date: 01/05/24 Comment: Incarcerated umbilical hernia w/ Bard mesh December [address]23 Dr. Guerrero hernia surgery Code(s): K42.9 - Umbilical hernia without obstruction or gangrene Plan: Patient continues to follow-up with the surgeon (6) B12 deficiency: Code(s): E53.8 - Deficiency of other specified B group vitamins Plan: advised to check if he is taking the B 12- if not advised to start. if he has been taking vitamin b 12 and the numbner is not getting higher - will need Vitamin b 12 SHOTS (7) Encounter for screening colonoscopy: Code(s): Z12.11 - Encounter for screening for malignant neoplasm of colon Orders: Orders 2 AMB Hemoglobin A1c Today Z13.9 - Encounter for screening, unspecified Vitamin B12 and Folate Today E53.8 - Deficiency of other specified B group vitamins Referrals 2 Gastroenterology Referral Z12.11 - Encounter for screening for malignant neoplasm of colon Medications: Refilled 2 cyanocobalamin (vitamin B-12) 1,000 mcg PO DAILY 30 caps 4RF E53.8 - Deficiency of other specified B group vitamins Coding Level of Care Code Est Pt Level 4 (59741) Diagnoses Type 2 diabetes mellitus with hyperglycemia E11.65 Hyperlipidemia E78.5 Obesity E66.9 Hypertension I10 Umbilical hernia K42.9 B12 deficiency E53.8 Encounter for screening colonoscopy Z12.11
[2024-01-31 14:25] VITALS: BP 128/80
== END 2024-01-31 14:39 | disposition home or self-care (01) ==
PROVIDERS: PCP Internal Medicine; Visit Provider Internal Medicine
DX: E11.65 Type 2 diabetes mellitus with hyperglycemia (principal); E78.5 Hyperlipidemia, unspecified; E66.9 Obesity, unspecified; Z68.36 Body mass index [BMI] 36.0-36.9, adult; I10 Essential (primary) hypertension; K42.9 Umbilical hernia without obstruction or gangrene; E53.8 Deficiency of other specified B group vitamins; Z12.11 Encounter for screening for malignant neoplasm of colon
CPT/HCPCS: 83036; 99214

== ENCOUNTER 2024-03-01 21:18 | Inpatient (IN) | payer MEDICARE, MEDICAID, SELFPAY ==
--- NOTE | ~2024-03-01 | XR_ITS ---
EXAMINATION: PORTABLE CHEST 1 VIEW CLINICAL INFORMATION: sob. COMPARISON: No recent pertinent prior studies are available for comparison. TECHNIQUE: Portable frontal view of the chest was obtained. FINDINGS: The lungs are mildly hypoexpanded with increased markings at the bases more likely due to atelectasis. No focal infiltrate, effusion, edema, or pneumothorax. Cardiac and mediastinal silhouettes are within normal limits for technique. No acute bony abnormality seen. Degenerative changes in the shoulders XR/XR chest 1V IMPRESSION: Hypoexpanded with basilar markings more likely due to atelectasis.
--- NOTE | ~2024-03-01 | CT_ITS ---
EXAMINATION: CT CHEST WITHOUT CONTRAST CLINICAL INFORMATION: Hypoxia. Question pneumonia. COMPARISON: Radiographs dated 03/01/2024. CT abdomen pelvis from the same date. TECHNIQUE: Multidetector volumetric CT imaging of the chest was done. Axial MIP volume rendering provided. Sagittal and coronal reformatted images were obtained. This CT examination was performed using dose optimization techniques as appropriate, variously including the following: *Automated exposure control *Adjustment of mA and/or kV according to patient size (this includes techniques or standardized protocols for targeted exams where dose is matched to indication/reason for exam; i.e. extremities or head) *Use of iterative reconstruction technique DLP: 398 mGy-cm FINDINGS: LUNGS: Mild dependent atelectasis is present in the lower lobes, left greater than right. Prominent left epicardial fat pad. Central airways are clear. No consolidation or pulmonary nodules. No bronchiectasis. MEDIASTINUM: Atherosclerotic calcifications are present in the thoracic aorta. No aneurysmal dilatation. Heart is normal in size. Thyroid gland is unremarkable. No mediastinal or hilar adenopathy. CORONARY ARTERY CALCIFICATION: Present PLEURA: There is no pleural effusion. No pleural mass or thickening. AXILLA: No lymphadenopathy. UPPER ABDOMEN: Hepatic steatosis is again noted. No acute findings in the upper abdomen. Liquid stool is again noted in the colon. OSSEOUS STRUCTURES: Diffuse idiopathic skeletal hyperostosis (DISH) is present in the thoracic spine with bridging osteophytes across [address]/CT chest wo IV con IMPRESSION: 1. Mild dependent atelectasis in the lower lobes, left greater than right. No acute pulmonary findings. No pneumonia. 2. Hepatic steatosis. Fleischner guidelines were followed.
--- NOTE | ~2024-03-01 | CT_ITS ---
EXAMINATION: CT ABDOMEN AND PELVIS WITHOUT CONTRAST CLINICAL INFORMATION: Diarrhea/colitis COMPARISON: None available. TECHNIQUE: Multidetector volumetric imaging was performed from the superior aspect of the liver through the pubic symphysis. Sagittal and coronal reformatted images were obtained on the technologist's workstation. This CT examination was performed using dose optimization techniques as appropriate, variously including the following: *Automated exposure control *Adjustment of mA and/or kV according to patient size (this includes techniques or standardized protocols for targeted exams where dose is matched to indication/reason for exam; i.e. extremities or head) *Use of iterative reconstruction technique DLP: 962 mGy-cm FINDINGS: LUNG BASES: Mild dependent atelectasis. LIVER, GALLBLADDER, AND BILIARY TREE: Relative hypoattenuation of the hepatic parenchyma is consistent with steatosis. Liver is normal in size and contour. No focal lesions are identified on this unenhanced study. The gallbladder is unremarkable with no evidence of radiopaque gallstones, gallbladder wall thickening, or obvious pericholecystic inflammatory changes. PANCREAS: Mild pancreatic atrophy. No ductal dilatation or focal lesions. SPLEEN: Unremarkable. ADRENAL GLANDS: Unremarkable. KIDNEYS AND URETERS: The kidneys are normal in size, shape, and attenuation. There is a 2.6 cm simple appearing cyst at the lower pole the left kidney. No recommend imaging follow-up. No hydronephrosis, hydroureter, or calculi seen. No perinephric stranding. BLADDER: Mild bladder wall thickening, likely due in part to underdistention. Small calcifications are present at the base of the bladder and the prostate. GASTROINTESTINAL TRACT: Stomach, small bowel, and colon are normal in caliber. Liquid stool is present throughout the colon. No appreciable bowel wall thickening or surrounding pericolonic fat stranding. Mild to moderate colonic diverticulosis without acute diverticulitis. Appendix is normal. No intraperitoneal free fluid or free air. ABDOMINAL WALL: There is a hernia mesh at the umbilicus from prior umbilical herniorrhaphy. No recurrent hernias. LYMPH NODES: Normal. VASCULAR: Atherosclerotic calcifications are present in the abdominal aorta and iliac arteries. No aneurysmal dilatation. PELVIC VISCERA: The prostate and seminal vesicles are unremarkable. OSSEOUS STRUCTURES: Mild degenerative disc disease in the thoracolumbar spine. No acute osseous findings. Mild osteoarthritis in the hips. There is ankylosis of the left hip joint via anterior osteophytes. Mild osteoarthritis in the right SI joint. CT/CT abdomen pelvis wo IV con IMPRESSION: 1. Liquid stool throughout the colon, consistent with a history of diarrhea. No appreciable bowel wall thickening or pericolonic fat stranding to indicate active colitis. 2. Mild to moderate colonic diverticulosis without evidence of acute diverticulitis. 3. Hepatic steatosis. Fleischner guidelines were followed.
[2024-03-01 21:28] VITALS: BP 184/110; PULSE 100; O2SAT 90
--- NOTE | 2024-03-01 21:29 | ED_ITS ---
HPI - General Adult General Chief complaint: General Medical Stated complaint: N/V X2DAYS O2 IN 80S- 90 ON 5L NO O2 USE PER EMS Time Seen by Provider: 03/01/24 21:25 Source: patient and family Mode of arrival: EMS Limitations: no limitations History of Present Illness ED Provider: sal GARIBAY narrative: Patient is 68 years old with history of hypertension diabetes been sick for last 2 days with nausea vomiting and diarrhea multiple times no recent use of antibiotics no fever no chills no other family member sick patient is usually ambulatory with normal mentation but for last 24 hours sleeping a lot and not eating much Related Data Home Medications ?Medication ?Instructions ?Recorded ?Confirmed multivitamin (Super Multivitamin 1 tab PO DAILY 12/26/22 01/31/24 tablet) Previous Rx's ?Medication ?Instructions ?Recorded incontinence pad, liner, disp #120 ea 07/19/22 (Underpads Regular) PULL UPS LARGE MENS #100 ea 12/26/22 blood pressure test kit-large #1 ea 12/26/22 blood sugar diagnostic (FreeStyle #100 ea 12/26/22 Lite Strips) blood-glucose meter (FreeStyle #1 ea 12/26/22 Lite Meter kit) lancets 28 gauge (FreeStyle #100 ea 12/26/22 Lancets) mirabegron 25 mg tablet,extended 25 mg PO DAILY 90 days #90 tabs 01/26/23 release 24 hr (Myrbetriq) methylcellulose (laxative) 2 g PO DAILY PRN constipation #479 02/01/23 (Citrucel Sugar Free oral powder) grams aspirin 81 mg tablet,delayed 81 mg PO DAILY #90 tabs 10/25/23 release hydrocodone 5 mg-acetaminophen 325 1 tab PO Q4-6H PRN pain #30 tabs 01/05/24 mg tablet atorvastatin 80 mg tablet 80 mg PO DAILY #90 tabs 24 ferrous sulfate 325 mg (65 mg 325 mg PO DAILY #90 tabs 01/20/24 iron) tablet lisinopril 10 mg tablet 10 mg PO DAILY #30 tabs 02/23/24 cyanocobalamin (vitamin B-12) 1,000 mcg IM .COMPLEX 1 week #10 mL 02/26/24 1,000 mcg/mL injection solution metformin 500 mg tablet 500 mg PO DAILY 30 days #30 tabs 02/26/24 Allergies Allergy/AdvReac Type Severity Reaction Status Date / Time No Known Allergies Allergy Unverified 03/01/24 21:35 [No Known Allergies*] Review of Systems 2 Review of Systems: Yes Unobtainable due to mental status PMFSH Past Medical History Medical History Hypertension Screening for colon cancer Acute CVA (cerebrovascular accident) Anemia Morbid (severe) obesity due to excess calories Arthritis Hyperlipidemia Surgical History Umbilical hernia (01/05/24) Pterygium Scrotal abscess Hx of excision of dermoid cyst Social History Social History Household Members: None Housing: Apartment Do you presently have visiting nurse or other home services: No Unable to assess alcohol history related to: Unknown Alcohol intake: current Alcohol intake frequency: holidays/special occasions only Alcohol type: beer Patient Tobacco Use Status: Never used Tobacco e-Cigarette/Vaping Use: Never Used Second Hand Smoke Exposure: No Advance Directives: No Advance Directives Information Provided: No Do you have a plan to hurt others: No Plan service: No Current occupational status: disabled Current occupational exposures/hazards: No Cognitive needs: No Hearing needs: Yes Vision needs: Yes Physical Exam ED Vital Signs: Vital Signs - 24 hr 03/01/24 21:32 03/02/24 00:08 03/02/24 02:17 Temperature 98.4 F 99.0 F 98.4 F Pulse Rate 108 H 92 91 Respiratory Rate 29 H 20 22 H Blood Pressure 119/71 95/60 104/43 L Pulse Oximetry 92 91 L 91 L Oxygen Delivery Method Nasal Cannula Room Air Nasal Cannula Room Air Nasal Cannula Oxygen Flow Rate 2 2 BMI result Body Mass Index 35.0 Appearance: Lethargic No acute distress. Eyes: PERRLA, No Nystagmus ENT: Pharynx normal. Oral Mucosa moist Neck: Normal inspection. Neck supple. CVS: Normal heart rate and rhythm. Pulses normal. Respiratory: No respiratory distress. Equal air entry bilateral, no wheezing/rales/rhonchi Abdomen: Soft and nontender. Bowel sounds are present, no mass palpable, no CVA tenderness Skin: Skin warm and dry. Normal skin color. Normal skin turgor. Extremities: No lower extremity edema. No calf tenderness Neuro: Oriented X 3. No motor deficit. No sensory deficit.No cerebellar signs , cranial nerves II-XII intact Medications Administered Discontinued Medications Generic Name Dose Route Start Last Admin Trade Name Willisq PRN Reason Stop Dose Admin Sodium Chloride 1,000 mls @ 999 mls/hr 03/01/24 21:32 03/02/24 02:40 Ns IV 03/01/24 22:32 Infused .Q1H1M ONE Infusion Potassium Chloride 10 meq in 100 mls @ 100 mls/hr 03/01/24 22:40 03/02/24 00:50 Potassium Chloride/H20 IV 03/01/24 23:39 Infused ONCE ONE Infusion Potassium Chloride 10 meq in 100 mls @ 100 mls/hr 03/01/24 22:41 03/02/24 02:19 Potassium Chloride/H20 IV 03/01/24 23:40 Infused ONCE ONE Infusion Magnesium Sulfate 2 gm in 50 mls @ 150 mls/hr 03/01/24 23:14 03/01/24 23:45 Magnesium Sulfate/H2o IV 03/01/24 23:33 Infused ONCE ONE Infusion Piperacillin Sod/Tazobactam 50 mls @ 100 mls/hr 03/02/24 00:54 03/02/24 02:55 Sod 3.375 gm/ Sodium Chloride IV 03/02/24 01:23 Infused ONCE ONE Infusion Potassium Chloride 10 meq in 100 mls @ 100 mls/hr 03/02/24 02:30 03/02/24 04:41 Potassium Chloride/H20 IV 03/02/24 06:29 Infused Q1H TREY Infusion Potassium Chloride 10 meq in 100 mls @ 100 mls/hr 03/02/24 04:30 03/02/24 06:05 Potassium Chloride/H20 IV 03/02/24 07:29 100 mls/hr Q1H TREY Administration Ondansetron HCl 4 mg 03/01/24 21:34 03/01/24 22:30 Ondansetron Hcl 4 Mg/2 Ml Vial IVPUSH 03/01/24 21:35 4 mg ONCE ONE Administration Medical Decision Making Medical Decision Making MDM Narrative: Patient is 68 years old with history of diabetes and hypertension comes here for 3 days of diarrhea and vomiting noted to have LENA and hypoxic significant bandemia normal lactic acid level patient received IV fluids will start on Zosyn stool cultures pending no recent use of antibiotics no other family member sick Differential Diagnosis Differential Diagnoses: The differential diagnosis associated with the presentation includes Enteritis/C diff colitis/aspiration Admission/Observation Consideration of admission/observation: Escalation of care including admission/observation considered Consult Healthcare Provider Management of the patient was discussed with: Hospitalist Lab Data MDM Lab Attestation statement: I reviewed the patient's lab results. 03/02/24 05:23 03/02/24 05:23 Labs: Lab Results 03/01/24 03/01/24 03/02/24 Range/Units 21:23 21:42 00:06 WBC 3.2 L (4.8-10.8) X10*3/uL RBC 5.84 H (4.60-5.80) X10*6/uL Hgb 17.4 (14.0-18.0) g/dl Hct 50.0 (42.0-52.0) % MCV 85.6 (80.0-98.0) fL MCH 29.8 (27.0-33.0) pg MCHC 34.8 (31.0-36.0) g/dl RDW 12.9 (11.0-16.0) % Plt Count 214 (160-400) X10*3/uL MPV 10.0 (9.4-12.4) fL Immature Gran % (Auto) Cancelled Neut % (Auto) Cancelled Lymph % (Auto) Cancelled [place] % (Auto) Cancelled Eos % (Auto) Cancelled Baso % (Auto) Cancelled Lymph # (Auto) Cancelled [place] # (Auto) Cancelled Eos # (Auto) Cancelled Baso # (Auto) Cancelled Abs Immat Gran (auto) Cancelled Absolute Neuts (auto) Cancelled Absolute Nucleated RBC 0.000 (0.0-0.012) X10*3/uL Nucleated RBC % (auto) 0.0 (0.0-0.2) /100WBC Neutrophils % (Manual) 38 L (45-73) % Band Neutrophils % 22 H (3-5) % Lymphocytes % (Manual) 16 L (20-40) % Monocytes % (Manual) 24 H (2-11) % Abs Neuts (Manual) 1.9 L (2.0-8.3) X10*3/uL Lymphocytes # (Manual) 0.5 L (1.2-4.9) X10*3/uL Monocytes # (Manual) 0.8 (0.1-1.2) X10*3/uL Platelet Estimate NORMAL (NORMAL) Large Platelets PRESENT Plt Morphology Comment NOTED RBC Morphology NORMAL Sodium 135 (135-145) mmol/L Potassium 2.6 L* D (3.3-5.1) mmol/L Chloride 101 (96-108) mmol/L Carbon Dioxide 17 L (22-29) mmol/L Anion Gap 20 (12-20) BUN 43 H (9-16) mg/dL Creatinine 2.05 H (0.5-1.4) mg/dL Estim Creat Clear Calc 39.8 Estimated GFR 32 POC Glucose 208 H (60-115) mg/dL Random Glucose 214 H (60-115) mg/dL Lactic Acid 2.2 H* (0.5-2.0) mmol/L Lactic Acid F/U @ 2Hr 1.3 (0.5-2.0) mmol/L Calcium 9.2 (8.4-10.2) mg/dL Magnesium 1.3 L* (1.6-2.6) mg/dL Total Bilirubin 1.0 (0.0-1.0) mg/dL AST 16 (5-37) U/L ALT 23 (0-40) U/L Alkaline Phosphatase 89 (39-117) U/L Troponin I High Sens 42.9 H (<3.5-35.0) ng/L B-Natriuretic Peptide 100 (<100) pg/mL Total Protein 7.6 (6.5-8.0) g/dL Albumin 4.1 (3.5-5.0) g/dL Lipase 5 L (8-78) U/L COVID-19 (PATSY) Negative (Negative) COVID-19 Clin Com See Note Independent Interpretation I performed an independent interpretation of an: Plain X-Ray and CT Scan Radiology Impression Discussion of test interpretation with radiology: I have reviewed the radiologist's reading. Radiologist Impression: [address] [id number] [address] Scan Report Signed Patient: Jose Saez MR#: [id number] : 1955 Acct:[id number] Age/Sex: 68 / M ADM Date: 03/01/24 Loc: HO.ED Attending Dr: Ordering Physician: Cuauhtemoc Cline MD Date of Service: 03/02/24 Procedure(s): CT abdomen pelvis wo IV con Accession Number(s): [id number] cc: Physician,Unknown ; Cuauhtemoc Cline MD~ EXAMINATION: CT ABDOMEN AND PELVIS WITHOUT CONTRAST CLINICAL INFORMATION: Diarrhea/colitis COMPARISON: None available. TECHNIQUE: Multidetector volumetric imaging was performed from the superior aspect of the liver through the pubic symphysis. Sagittal and coronal reformatted images were obtained on the technologist's workstation. This CT examination was performed using dose optimization techniques as appropriate, variously including the following: *Automated exposure control *Adjustment of mA and/or kV according to patient size (this includes techniques or standardized protocols for targeted exams where dose is matched to indication/reason for exam; i.e. extremities or head) *Use of iterative reconstruction technique DLP: 962 mGy-cm FINDINGS: LUNG BASES: Mild dependent atelectasis. LIVER, GALLBLADDER, AND BILIARY TREE: Relative hypoattenuation of the hepatic parenchyma is consistent with steatosis. Liver is normal in size and contour. No focal lesions are identified on this unenhanced study. The gallbladder is unremarkable with no evidence of radiopaque gallstones, gallbladder wall thickening, or obvious pericholecystic inflammatory changes. PANCREAS: Mild pancreatic atrophy. No ductal dilatation or focal lesions. SPLEEN: Unremarkable. ADRENAL GLANDS: Unremarkable. KIDNEYS AND URETERS: The kidneys are normal in size, shape, and attenuation. There is a 2.6 cm simple appearing cyst at the lower pole the left kidney. No recommend imaging follow-up. No hydronephrosis, hydroureter, or calculi seen. No perinephric stranding. BLADDER: Mild bladder wall thickening, likely due in part to underdistention. Small calcifications are present at the base of the bladder and the prostate. GASTROINTESTINAL TRACT: Stomach, small bowel, and colon are normal in caliber. Liquid stool is present throughout the colon. No appreciable bowel wall thickening or surrounding pericolonic fat stranding. Mild to moderate colonic diverticulosis without acute diverticulitis. Appendix is normal. No intraperitoneal free fluid or free air. ABDOMINAL WALL: There is a hernia mesh at the umbilicus from prior umbilical herniorrhaphy. No recurrent hernias. LYMPH NODES: Normal. VASCULAR: Atherosclerotic calcifications are present in the abdominal aorta and iliac arteries. No aneurysmal dilatation. PELVIC VISCERA: The prostate and seminal vesicles are unremarkable. OSSEOUS STRUCTURES: Mild degenerative disc disease in the thoracolumbar spine. No acute osseous findings. Mild osteoarthritis in the hips. There is ankylosis of the left hip joint via anterior osteophytes. Mild osteoarthritis in the right SI joint. CT/CT abdomen pelvis wo IV con IMPRESSION: 1. Liquid stool throughout the colon, consistent with a history of diarrhea. No appreciable bowel wall thickening or pericolonic fat stranding to indicate active colitis. 2. Mild to moderate colonic diverticulosis without evidence of acute diverticulitis. 3. Hepatic steatosis. Fleischner guidelines were followed. Critical Care Time Critical Care Time Critical Care Time: Yes Total Critical Care Time: 55 Attestation: The patient was critically ill with a high probability of imminent or life threatening deterioration. I spent greater than 60???minutes of discontinuous time evaluating the patient,delivering critical care at the bedside, discussing and evaluating pertinent data with consultants. Critical care time does not include time spent performing separately billable procedures or teaching. Total time spent performing critical care was 55???minutes. Discharge Plan Discharge Clinical Impression: Acute diarrhea, Acute metabolic encephalopathy Patient Disposition: Admitted As Inpatient
[2024-03-01 21:32] VITALS: BP 119/71; PULSE 108; RESP 29; TEMP 36.9; O2SAT 92; BMI 35.0
--- NOTE | 2024-03-01 21:34 | ECG_ITS ---
Test Reason : SHORTNESS OF BREATH Blood Pressure : / mmHG Vent. Rate : 096 BPM Atrial Rate : 096 BPM P-R Int : 168 ms QRS Dur : 076 ms QT Int : 324 ms P-R-T Axes : 060 012 070 degrees QTc Int : 409 ms Sinus rhythm with Blocked Premature atrial complexes Possible Inferior infarct , age undetermined Anteroseptal infarct (cited on or before 04-OCT-2022) Abnormal ECG When compared with ECG of 04-OCT-2022 13:47, Premature atrial complexes are now Present Questionable change in initial forces of Septal leads ST now depressed in Anterior leads Nonspecific T wave abnormality now evident in Anterolateral leads Referred By: Cuauhtemoc Cline Electronically Signed By:CHON PATEL
[2024-03-01 21:53] LABS: Hemoglobin 17.4 g/dl (14.0-18.0); Mean Corpuscular HGB Conc 34.8 g/dl (31.0-36.0); Mean Corpuscular Hemoglobin 29.8 pg (27.0-33.0); Mean Corpuscular Volume 85.6 fL (80.0-98.0); Platelet Count 214 X10*3/uL (160-400); Red Blood Count 5.84 X10*6/uL (4.60-5.80); Red Cell Distribution Width 12.9 % (11.0-16.0)
[2024-03-01 21:57] LABS: Glucose, Whole Blood 208 mg/dL (60-115)
[2024-03-01 22:08] LABS: WBC ABN SCTR FOR CBC 1
[2024-03-01 22:14] LABS: B Type Natriuretic Peptide 100 pg/mL (<100)
[2024-03-01 22:19] LABS: Troponin-I High Sensitivity 42.9 ng/L (<3.5-35.0)
[2024-03-01 22:21] LABS: Lactic Acid 2.2 mmol/L (0.5-2.0)
[2024-03-01 22:22] LABS: Alanine Aminotransferase 23 U/L (0-40); Albumin Level 4.1 g/dL (3.5-5.0); Alkaline Phosphatase 89 U/L (39-117); Anion Gap 20 (12-20); Aspartate Amino Transferase 16 U/L (5-37); Blood Urea Nitrogen 43 mg/dL (9-16); Calcium 9.2 mg/dL (8.4-10.2); Carbon Dioxide 17 mmol/L (22-29); Chloride 101 mmol/L (96-108); Creatinine Clr Calc Pharmacy 39.8; Estimated Glomerular Filt Rate 32; Glucose Random 214 mg/dL (60-115); Lipase 5 U/L (8-78); Potassium 2.6 mmol/L (3.3-5.1); Sodium 135 mmol/L (135-145); Total Protein 7.6 g/dL (6.5-8.0)
[2024-03-01] MEDS: 0.9 % Sodium Chloride 1,000 ML 999 ML IV (22:30)
[2024-03-01] MEDS: ondansetron HCL 4 MG/2 ML VIAL IVPUSH (22:30)
[2024-03-01 22:32] LABS: COVID-19 Test Negative (Negative); IDNOW Serial# 6674DD1D
[2024-03-01 22:37] LABS: Neutrophils Percent Manual 38 % (45-73)
[2024-03-01 22:40] LABS: Band Neutrophils Percent 22 % (3-5); Lymphocytes Percent Manual 16 % (20-40); Monocytes Percent Manual 24 % (2-11)
[2024-03-01 22:41] LABS: Large Platelet PRESENT; Lymphocytes Absolute Manual 0.5 X10*3/uL (1.2-4.9); Monocytes Absolute Manual 0.8 X10*3/uL (0.1-1.2); Neutrophils Absolute Manual 1.9 X10*3/uL (2.0-8.3); Platelet Estimate NORMAL (NORMAL); Platelet Morphology Comment NOTED; RBC Morphology NORMAL; White Blood Count 3.2 X10*3/uL (4.8-10.8)
[2024-03-01 23:13] LABS: Magnesium 1.3 mg/dL (1.6-2.6)
[2024-03-01] MEDS: Magnesium Sulfate/H2O 2 GM/50 ML PIGGYBACK IV (23:21)
--- NOTE | 2024-03-01 23:24 | PC.NURSE ---
Son at bedside. Plan of care ongoing.
[2024-03-01] MEDS: Potassium Chloride/H20 10 MEQ/100 ML PIGGYBACK 100 MEQ IV (23:40)
[2024-03-01 23:50] LABS: Reflex Lactate? Lactic Acid Added
[2024-03-02] VITALS (22 sets, daily range): BP systolic 78–129; BP diastolic 37–70; PULSE 73–160; RESP 15–28; TEMP 36.6–37.2; O2SAT 90–97
[2024-03-02 00:21] LABS: ~Lactic Acid-LAB USE ONLY 1.3 mmol/L (0.5-2.0)
--- NOTE | 2024-03-02 01:09 | PC.NURSE ---
Pt with CT. Plan of care ongoing.
[2024-03-02] MEDS: Potassium Chloride/H20 10 MEQ/100 ML PIGGYBACK 100 MEQ IV ×9 (01:19→22:19)
--- NOTE | 2024-03-02 01:46 | PC.NURSE ---
Complete bed change and amalia care done. Plan of care ongoing.
[2024-03-02] MEDS: Piperacillin Sodium/Tazobactam 3.375 GM in 0.9 % Sodium Chloride 50 ML IV (02:22)
--- NOTE | 2024-03-02 02:27 | P.HPHOSP_ITS ---
History of Present Illness Date of Service: 03/02/24 Chief Complaint: Nausea/vomiting/diarrhea This is a 68-year-old male with pertinent history of hypertension, history of CVA, mixed hyperlipidemia, kxb-vfxngmw-cfvpyjulh diabetes mellitus, BPH who was brought to the emergency department feeling of unwell. Patient is extremely drowsy at the time of my presentation. Unable to provide history. History obtained with the help of ER provider and chart review. Patient is Iranian speaking and history obtained with the help of fish farmer. Patient has been having multiple episodes of nausea with nonbloody emesis and nonbloody diarrhea for the last 2-3 days. No sick family members. In the emergency department, patient was found to be tachycardic with tachypnea and 22% band cells. Patient was requiring 2 L supplemental oxygen in the ER. Imaging without acute abnormality. Patient was resuscitated with IV crystalloids and initiated on empiric IV antibiotics. Unable to obtain review of systems. Review of Systems 2 Review of Systems: Yes Unobtainable due to mental condition [facility] Medical History Hypertension Screening for colon cancer Acute CVA (cerebrovascular accident) Anemia Morbid (severe) obesity due to excess calories Arthritis Hyperlipidemia Surgical History Umbilical hernia (01/05/24) Pterygium Scrotal abscess Hx of excision of dermoid cyst Social History Household Members: None Housing: Apartment Do you presently have visiting nurse or other home services: No Unable to assess alcohol history related to: Unknown Alcohol intake: current Alcohol intake frequency: holidays/special occasions only Alcohol type: beer Patient Tobacco Use Status: Never used Tobacco e-Cigarette/Vaping Use: Never Used Second Hand Smoke Exposure: No Advance Directives: No Advance Directives Information Provided: No Do you have a plan to hurt others: No Plan service: No Current occupational status: disabled Current occupational exposures/hazards: No Cognitive needs: No Hearing needs: Yes Vision needs: Yes Meds Allergies Allergy/AdvReac Type Severity Reaction Status Date / Time No Known Allergies Allergy Unverified 03/01/24 21:35 [No Known Allergies*] Home Medications ?Medication ?Instructions ?Recorded ?Confirmed ?Last Taken ?Type multivitamin (Super Multivitamin 1 tab PO DAILY 12/26/22 01/31/24 Unknown History tablet) Physical Exam 2 Vital Signs and Narrative: Vital Signs: Last Vital Signs Temp 98.4 F 03/02/24 02:17 Pulse 91 03/02/24 02:17 Resp 22 H 03/02/24 02:17 BP 104/43 L 03/02/24 02:17 Pulse Ox 91 L 03/02/24 02:17 O2 Del Method Room Air, Nasal C annula 03/02/24 02:17 O2 Flow Rate 2 03/02/24 02:17 Oxygen Flow Rate 2 03/01/24 21:32 BMI result Body Mass Index 35.0 Middle-aged male lying in bed in mild distress on supplemental oxygen Neck supple, no JVD Regular rate and rhythm, S1-S2 heard Regular breath sounds bilaterally, no wheezing or crackles appreciated Abdomen soft nontender, no guarding, no rigidity Patient is drowsy, awakens to verbal stimulus but falls back asleep mid conversation, not following commands, unable to assess orientation Psych: Lethargic No pedal edema Results Labs 03/01/24 21:42 03/01/24 21:42 Labs: Laboratory Results - last 24 hr 03/01/24 03/01/24 03/02/24 21:23 21:42 00:06 MCV 85.6 MCH 29.8 MCHC 34.8 RDW 12.9 Plt Count 214 MPV 10.0 Immature Gran % (Auto) Cancelled Neut % (Auto) Cancelled Lymph % (Auto) Cancelled [place] % (Auto) Cancelled Eos % (Auto) Cancelled Baso % (Auto) Cancelled Lymph # (Auto) Cancelled [place] # (Auto) Cancelled Eos # (Auto) Cancelled Baso # (Auto) Cancelled Abs Immat Gran (auto) Cancelled Absolute Neuts (auto) Cancelled Absolute Nucleated RBC 0.000 Nucleated RBC % (auto) 0.0 Neutrophils % (Manual) 38 L Band Neutrophils % 22 H Lymphocytes % (Manual) 16 L Monocytes % (Manual) 24 H Abs Neuts (Manual) 1.9 L Lymphocytes # (Manual) 0.5 L Monocytes # (Manual) 0.8 Platelet Estimate NORMAL Large Platelets PRESENT Plt Morphology Comment NOTED RBC Morphology NORMAL Anion Gap 20 Estim Creat Clear Calc 39.8 Estimated GFR 32 POC Glucose 208 H Random Glucose 214 H Lactic Acid 2.2 H* Lactic Acid F/U @ 2Hr 1.3 Calcium 9.2 Magnesium 1.3 L* Total Bilirubin 1.0 AST 16 ALT 23 Alkaline Phosphatase 89 Troponin I High Sens 42.9 H B-Natriuretic Peptide 100 Total Protein 7.6 Albumin 4.1 Lipase 5 L COVID-19 (PATSY) Negative COVID-19 Clin Com See Note Imaging Radiologist's Impressions: Impressions Chest X-Ray 03/01/24 21:54 IMPRESSION: Hypoexpanded with basilar markings more likely due to atelectasis. Abdomen/Pelvis CT 03/02/24 01:15 IMPRESSION: 1. Liquid stool throughout the colon, consistent with a history of diarrhea. No appreciable bowel wall thickening or pericolonic fat stranding to indicate active colitis. 2. Mild to moderate colonic diverticulosis without evidence of acute diverticulitis. 3. Hepatic steatosis. Fleischner guidelines were followed. Assessment and Plan (1) Sepsis: Status: Acute (2) Diarrhea: Status: Acute Plan This is a 68-year-old male with pertinent history of hypertension, history of CVA, mixed hyperlipidemia, hez-kadxgvt-byixyvvut diabetes mellitus, BPH who was brought to the emergency department feeling of unwell. #. Sepsis with GI source: Resuscitated with IV crystalloids. Initiating IV Zosyn. Lactic acid and blood culture obtained. GI panel and stool studies pending #. Acute hypoxemic respiratory failure, likely in the setting of sepsis versus aspiration: On 2 L supplemental oxygen currently. Monitor and wean #. Acute metabolic encephalopathy in the setting of above: Monitor mentation with supplemental oxygen and IV antibiotics. NPO until mentation improves #. Hypokalemia and hypomagnesemia due to GI losses: Repleted #. Acute kidney injury stage II colon monitor creatinine and urine output with crystalloid resuscitation. Avoid nephrotoxins #. Acute lactic acidosis due to sepsis #. Ees-rlxhill-fjcmhuihu diabetes mellitus with hyperglycemia: Initiating Accu-Cheks with sliding scale insulin #. History of CVA: On aspirin and high-intensity statin once able Med rec pending DVT prophylaxis: Lovenox Full code Admit as inpatient and will require two night minimum hospital stay for supplemental oxygen and IV antibiotics (as above), which is not possible in a lesser acute setting. Quality Stroke Does the patient have a stroke diagnosis?: No VTE Prior VTE?: No VTE Risk Level:: Medical - moderate - high VTE Device Contraindication: Treatment Not Indicated VTE Drug Contraindication: N/A - Med Ordered
--- NOTE | 2024-03-02 03:54 | PC.NURSE ---
Pt medicated per oct. Plan of care ongoing.
--- NOTE | 2024-03-02 04:20 | PC.NURSE ---
This RN unable to pull 330 potassium not showing in Pyxis, only 430 & 530 bag avail in pyxis. This RN called and spoke with Cale in Pharmacy, he will attempt to fix in pyxis. Plan of care ongoing.
--- NOTE | 2024-03-02 04:36 | PC.NURSE ---
This RN completed amalia care. Plan of care ongoing.
--- NOTE | 2024-03-02 04:48 | PC.NURSE ---
Pt medicated per oct. Plan of care ongoing.
[2024-03-02 05:33] LABS: CDiff Gene PCR NEGATIVE (Negative)
[2024-03-02 05:38] LABS: Hematocrit 44.7 % (42.0-52.0); Hemoglobin 15.5 g/dl (14.0-18.0); Mean Corpuscular HGB Conc 34.7 g/dl (31.0-36.0); Mean Corpuscular Hemoglobin 29.6 pg (27.0-33.0); Mean Corpuscular Volume 85.3 fL (80.0-98.0); Mean Platelet Volume 9.8 fL (9.4-12.4); Platelet Count 195 X10*3/uL (160-400); Red Blood Count 5.24 X10*6/uL (4.60-5.80); Red Cell Distribution Width 12.9 % (11.0-16.0)
[2024-03-02 05:39] LABS: WBC ABN SCTR FOR CBC 1; White Blood Count 3.6 X10*3/uL (4.8-10.8)
[2024-03-02 05:44] LABS: Anion Gap 18 (12-20); Blood Urea Nitrogen 55 mg/dL (9-16); Calcium 8.7 mg/dL (8.4-10.2); Carbon Dioxide 16 mmol/L (22-29); Chloride 104 mmol/L (96-108); Creatinine Clr Calc Pharmacy 27.9; Estimated Glomerular Filt Rate 22; Glucose Random 170 mg/dL (60-115); Potassium 3.1 mmol/L (3.3-5.1); Sodium 135 mmol/L (135-145)
--- NOTE | 2024-03-02 05:46 | MHC.EDTECH ---
patient was incontinent twice for bows. unable to obtain GI Panal.
--- NOTE | 2024-03-02 06:13 | PC.NURSE ---
Dr Valles notified and aware of pts b/p of . Plan of care ongoing.
[2024-03-02 06:36] LABS: Atypical Lymph Absolute Manual 0.1 x10*3/uL; Atypical Lymphs Percent Manual 3 % (0-6); Band Neutrophils Percent 37 % (3-5); Large Platelet PRESENT; Lymphocytes Absolute Manual 0.4 X10*3/uL (1.2-4.9); Lymphocytes Percent Manual 11 % (20-40); Metamyelocytes Absolute 0.1 X10*3/uL; Metamyelocytes Percent 2 %; Monocytes Absolute Manual 0.5 X10*3/uL (0.1-1.2); Monocytes Percent Manual 14 % (2-11); Neutrophils Absolute Manual 2.5 X10*3/uL (2.0-8.3); Neutrophils Percent Manual 33 % (45-73); Platelet Estimate SLIGHTLY DECREASED (NORMAL); Platelet Morphology Comment NOTED; RBC Morphology NOTED
[2024-03-02 06:37] LABS: Howell Jolly Bodies PRESENT; Polychromasia 1+ (0-2) /OIF
[2024-03-02 06:38] LABS: Toxic Vacuolation PRESENT; WBC Morphology Comment DYSMORPHIC
--- NOTE | 2024-03-02 08:06 | PC.NURSE ---
Pt. HR intermittently elevating to 160s. MD Boswell aware- no new orders at this time.
[2024-03-02 08:08] LABS: Glucose, Whole Blood 156 mg/dL (60-115)
[2024-03-02] MEDS: Insulin Lispro 100 UNIT/ML 3 ML VIAL SUBCUT (08:18)
[2024-03-02] MEDS: Piperacillin Sodium/Tazobactam 4.5 GM in 0.9 % Sodium Chloride 100 ML IV (08:18)
[2024-03-02] MEDS: Enoxaparin Sodium 40 MG/0.4 ML SYRINGE SUBCUT (08:18)
[2024-03-02] MEDS: 0.9 % Sodium Chloride Flush 3 ML SYRINGE IVFLUSH (08:32)
[2024-03-02] MEDS: Lactated Ringers 500 ML IV (08:42)
--- NOTE | 2024-03-02 08:59 | PC.NURSE ---
BPs sam - MD Boswell aware. Verbal order 1L Lactated Ringers
[2024-03-02] MEDS: Lactated Ringers 1,000 ML 999 ML IV (09:11)
--- NOTE | 2024-03-02 09:47 | PHA.MEDREC ---
Pharmacy Consult ? Medication Reconciliation Pharmacy has completed the medication reconciliation. used claim history to confirm medications. Called family member and spoke with Betsy, she confirmed patient did not start Vitamin B12 injections but is taking it PO.
[2024-03-02 09:49] LABS: Magnesium 1.8 mg/dL (1.6-2.6)
--- NOTE | 2024-03-02 10:02 | PC.NURSE ---
Rectal tube inserted- put out 1L liquid stool immediately. aware
[2024-03-02] MEDS: Albumin Human 25 % 100 ML 133.33 ML IV ×2 (10:06→10:42)
--- NOTE | 2024-03-02 10:07 | PC.NURSE ---
No new orders re: pt.'s elevated HR
--- NOTE | 2024-03-02 10:12 | HO.PM.IMPN ---
Subjective Subjective Date of Service: 03/02/24 Review of Systems Review of Systems: Yes Unobtainable due to mental status Physical Exam Vital Signs: Vital Signs: Last Vital Signs Temp 98.4 F 03/02/24 02:36 Pulse 152 H 03/02/24 10:05 Resp 24 H 03/02/24 10:05 BP 106/58 L 03/02/24 10:05 Pulse Ox 91 L 03/02/24 10:05 O2 Del Method Nasal Cannula 03/02/24 10:05 O2 Flow Rate 3 03/02/24 10:05 Oxygen Flow Rate 2 03/01/24 21:32 BMI result Body Mass Index 35.0 lethargic, ill appearing, abd soft, profuse watery, brown diarrhea Objective Data Active Medications Acetaminophen (Acetaminophen 325 Mg Tablet) 650 mg PO Q6H PRN PRN Reason: Pain, Mild (Pain Scale 1-3), fever or headache Calcium Carbonate (Calcium Carbonate 750 Mg Tab.Chew) 750 mg PO Q4H PRN PRN Reason: Heartburn Enoxaparin Sodium (Enoxaparin Sodium 30 Mg/0.3 Ml Syringe) 30 mg SUBCUT Q24H [facility] Last Admin: 03/02/24 09:32 Dose: Not Given Documented By: TAYLER Non-Admin Reason: Lovenox given today per previous order Glucose (Glucose Gel 15 Gm Gel..Gram.) 15 gm PO Q15M PRN; Protocol PRN Reason: per Hypoglycemia Standing Ord. Piperacillin Sod/Tazobactam (Sod 4.5 gm/ Sodium Chloride) 100 mls @ 200 mls/hr IV Q8H [facility] Last Infusion: 03/02/24 09:11 Dose: Infused Documented By: TAYLER Dextrose (D10) 250 mls @ 750 mls/hr IV Q15M PRN; Protocol PRN Reason: per Hypoglycemia Standing Ord. Lactated Ringer's (Lr) 1,000 mls @ 999 mls/hr IV .Q1H1M [facility] Stop: 03/02/24 10:15 Last Admin: 03/02/24 09:11 Dose: 999 mls/hr Documented By: TAYLER Albumin Human (Kedbumin 25 %) 100 mls @ 133.333 mls/hr IV Q1H [facility] Stop: 03/02/24 10:59 Last Admin: 03/02/24 10:06 Dose: 133.33 mls/hr Documented By: TAYLER Potassium Chloride (Potassium Chloride/H20) 10 meq in 100 mls @ 100 mls/hr IV Q1H [facility] Stop: 03/02/24 10:14 Last Admin: 03/02/24 09:24 Dose: 100 mls/hr Documented By: TAYLER Insulin Human Lispro (Insulin Lispro 100 Unit/Ml 3 Ml Vial) 0 unit SUBCUT QIDACHS [facility]; Protocol Last Admin: 03/02/24 08:18 Dose: 2 unit Documented By: TYALER Magnesium Hydroxide (Milk Of Magnesia 30 Ml Oral.Susp) 30 ml PO DAILY PRN PRN Reason: Constipation Melatonin (Melatonin 3 Mg Tablet) 6 mg PO BEDTIME PRN PRN Reason: Insomnia Ondansetron HCl (Ondansetron Hcl 4 Mg/2 Ml Vial) 4 mg IVPUSH Q8H PRN PRN Reason: Nausea and Vomiting Sodium Chloride (0.9 % Sodium Chloride Flush 3 Ml Syringe) 3 ml IVFLUSH [facility] Last Admin: 03/02/24 08:32 Dose: 3 ml Documented By: TAYLER Labs 03/02/24 05:23 03/02/24 05:23 Labs: Laboratory Results - last 24 hr 03/01/24 03/01/24 03/02/24 21:23 21:42 00:06 MCV 85.6 MCH 29.8 MCHC 34.8 RDW 12.9 Plt Count 214 MPV 10.0 Immature Gran % (Auto) Cancelled Neut % (Auto) Cancelled Lymph % (Auto) Cancelled [place] % (Auto) Cancelled Eos % (Auto) Cancelled Baso % (Auto) Cancelled Lymph # (Auto) Cancelled [place] # (Auto) Cancelled Eos # (Auto) Cancelled Baso # (Auto) Cancelled Abs Immat Gran (auto) Cancelled Absolute Neuts (auto) Cancelled Absolute Nucleated RBC 0.000 Nucleated RBC % (auto) 0.0 Neutrophils % (Manual) 38 L Band Neutrophils % 22 H Lymphocytes % (Manual) 16 L Atypical Lymphs % (Man) Monocytes % (Manual) 24 H Metamyelocytes % Abs Neuts (Manual) 1.9 L Lymphocytes # (Manual) 0.5 L Atyp Lymphs # (Manual) Monocytes # (Manual) 0.8 Metamyelocytes # Toxic Vacuolation WBC Morphology Comment Platelet Estimate NORMAL Large Platelets PRESENT Plt Morphology Comment NOTED RBC Morphology NORMAL Polychromasia Julio[place] Bodies Anion Gap 20 Estim Creat Clear Calc 39.8 Estimated GFR 32 POC Glucose 208 H Random Glucose 214 H Lactic Acid 2.2 H* Lactic Acid F/U @ 2Hr 1.3 Calcium 9.2 Phosphorus Magnesium 1.3 L* Total Bilirubin 1.0 AST 16 ALT 23 Alkaline Phosphatase 89 Troponin I High Sens 42.9 H B-Natriuretic Peptide 100 Total Protein 7.6 Albumin 4.1 Lipase 5 L C. difficile Tox B Gene COVID-19 (PATSY) Negative COVID-19 RxResults Com See Note 03/02/24 03/02/24 03/02/24 04:36 05:23 08:05 MCV 85.3 MCH 29.6 MCHC 34.7 RDW 12.9 Plt Count 195 MPV 9.8 Immature Gran % (Auto) Cancelled Neut % (Auto) Cancelled Lymph % (Auto) Cancelled [place] % (Auto) Cancelled Eos % (Auto) Cancelled Baso % (Auto) Cancelled Lymph # (Auto) Cancelled [place] # (Auto) Cancelled Eos # (Auto) Cancelled Baso # (Auto) Cancelled Abs Immat Gran (auto) Cancelled Absolute Neuts (auto) Cancelled Absolute Nucleated RBC 0.000 Nucleated RBC % (auto) 0.0 Neutrophils % (Manual) 33 L Band Neutrophils % 37 H Lymphocytes % (Manual) 11 L Atypical Lymphs % (Man) 3 Monocytes % (Manual) 14 H Metamyelocytes % 2 Abs Neuts (Manual) 2.5 Lymphocytes # (Manual) 0.4 L Atyp Lymphs # (Manual) 0.1 Monocytes # (Manual) 0.5 Metamyelocytes # 0.1 Toxic Vacuolation PRESENT WBC Morphology Comment DYSMORPHIC Platelet Estimate SLIGHTLY DECREASED Large Platelets PRESENT Plt Morphology Comment NOTED RBC Morphology NOTED Polychromasia 1+ (0-2) Julio[place] Bodies PRESENT Anion Gap 18 Estim Creat Clear Calc 27.9 Estimated GFR 22 POC Glucose 156 H Random Glucose 170 H Lactic Acid Lactic Acid F/U @ 2Hr Calcium 8.7 Phosphorus 5.0 H Magnesium 1.8 Total Bilirubin AST ALT Alkaline Phosphatase Troponin I High Sens B-Natriuretic Peptide Total Protein Albumin Lipase C. difficile Tox B Gene NEGATIVE COVID-19 (PATSY) COVID-19 Clin Com Assessment and Plan (1) Acute metabolic encephalopathy: Status: Acute Plan 68M PMH htn, CVA, hld, dm, bph presented with lethargy sepsis and acute metabolic encephalopathy due to Gastroeneteritis complicated by hpyovolemia and hypotension from diarrhea continue fluid resuscitation npo, iv zosyn, follow up panel, cultures acute hypoxic respiratory failure wean o2 as tolerated acute hypokalemia and hypomagnesemia due to diarrhea, replace and monitor ish with acute metabolic acidosis due to diarrhea ivf, monitor history of cva asa, statin dvt prophylaxis - lovenox full ocde reason for continued hospitalization:hypotension Quality Stroke Does the patient have a stroke diagnosis?: No VTE Prior VTE?: No VTE Risk Level:: Medical - moderate - high VTE Device Contraindication: Treatment Not Indicated VTE Drug Contraindication: N/A - Med Ordered
--- NOTE | 2024-03-02 11:14 | PC.NURSE ---
Called Pharmacy for Bicarb. gtt. Croft states that they will be working on it shortly.
--- NOTE | 2024-03-02 11:17 | PC.NURSE ---
Waiting on EKG at this time because pt. is no longer ST to 150s- he is back own to NSR at a rate of 94. MD aware of EKG being held.
[2024-03-02 11:37] LABS: Glucose, Whole Blood 125 mg/dL (60-115)
--- NOTE | 2024-03-02 11:41 | P.CONCC_ITS ---
History of Present Illness Data of Consult Service Date: 03/02/24 Primary Care Provider: Unknown Physician HPI Reason for consult: Level of care 68-year-old gentleman with underlying history of hypertension, CVA, hyperlipidemia, diabetes mellitus, BPH, prior history of enteropathogenic E coli admitted on 03/02/2024 with nausea, vomiting, and diarrhea for 2-3 days. Patient with ongoing nonbloody diarrhea in the emergency room started on empiric IV antibiotics and IV fluids and admitted to telemetry. Since admission patient with borderline blood pressures and ongoing diarrhea, at least 1200 cc. Blood pressure response to IV fluids. Laboratory studies significant for hypokalemia, hypomagnesemia, metabolic acidosis, and acute kidney injury. Patient is lethargic, but arousable and answers appropriately in Romanian. Review of Systems 2 Constitutional: Constitutional: Denies daytime sleepiness, Denies excessive sweating, Denies fatigue, Denies fever(s), Denies lethargy, Reports malaise, Denies night sweats, Denies snoring and Denies weight loss Eyes: Eyes: Denies blurry vision and Denies itchy eyes ENT: Denies nasal congestion, Denies post nasal drip, Denies sinus pain, Denies sinus pressure and Denies other ( Thrush) Cardiovascular: Cardiovascular: Denies chest pain, Denies pedal edema, Denies dyspnea, Denies orthopnea and Denies paroxysmal nocturnal dyspnea Respiratory: Respiratory: Denies cough, Denies hemoptysis, Denies excessive phlegm production, Denies dyspnea, Denies snoring and Denies wheezing Gastrointestinal: Gastrointestinal: Denies abdominal pain, Denies heartburn, Reports diarrhea, Reports nausea and Reports vomiting Musculoskeletal: Musculoskeletal: Denies myalgias, Denies arthralgias and Denies joint swelling Integumentary/Breasts: Skin/Breast: Denies rash Neurologic: Denies memory loss and Denies seizure-like activity Psychiatric: Psychiatric: Denies abnormal sleep pattern, Denies anxiety and Denies memory loss Endocrine: Endocrine: Denies excessive sweating, Denies fatigue and Denies heat intolerance Hematologic/Lymphatic: Hematologic/Lymphatic: Denies easy bruising Allergic/Immunologic: Allergic/Immunologic: Denies itchy eyes, Denies seasonal rhinorrhea and Denies wheezing PMFSH Past Medical History Medical History Hypertension Screening for colon cancer Acute CVA (cerebrovascular accident) Anemia Morbid (severe) obesity due to excess calories Arthritis Hyperlipidemia Surgical History Surgical History Umbilical hernia (01/05/24) Pterygium Scrotal abscess Hx of excision of dermoid cyst Social History Social History Household Members: None Housing: Apartment Do you presently have visiting nurse or other home services: No Unable to assess alcohol history related to: Unknown Alcohol intake: current Alcohol intake frequency: holidays/special occasions only Alcohol type: beer Patient Tobacco Use Status: Never used Tobacco e-Cigarette/Vaping Use: Never Used Second Hand Smoke Exposure: No Advance Directives: No Advance Directives Information Provided: No Do you have a plan to hurt others: No Plan service: No Current occupational status: disabled Current occupational exposures/hazards: No Cognitive needs: No Hearing needs: Yes Vision needs: Yes Meds Allergies Allergy/AdvReac Type Severity Reaction Status Date / Time No Known Allergies Allergy Unverified 03/01/24 21:35 [No Known Allergies*] Active Medications: Current Medications Acetaminophen (Acetaminophen 325 Mg Tablet) 650 mg PO Q6H PRN PRN Reason: Pain, Mild (Pain Scale 1-3), fever or headache Calcium Carbonate (Calcium Carbonate 750 Mg Tab.Chew) 750 mg PO Q4H PRN PRN Reason: Heartburn Enoxaparin Sodium (Enoxaparin Sodium 30 Mg/0.3 Ml Syringe) 30 mg SUBCUT Q24H [facility] Last Admin: 03/02/24 09:32 Dose: Not Given Glucose (Glucose Gel 15 Gm Gel..Gram.) 15 gm PO Q15M PRN; Protocol PRN Reason: per Hypoglycemia Standing Ord. Piperacillin Sod/Tazobactam (Sod 4.5 gm/ Sodium Chloride) 100 mls @ 200 mls/hr IV Q8H [facility] Last Infusion: 03/02/24 09:11 Dose: Infused Dextrose (D10) 250 mls @ 750 mls/hr IV Q15M PRN; Protocol PRN Reason: per Hypoglycemia Standing Ord. Sodium Bicarbonate 150 meq/ (Dextrose) 1,000 mls @ 100 mls/hr IV .Q10H [facility] Insulin Human Lispro (Insulin Lispro 100 Unit/Ml 3 Ml Vial) 0 unit SUBCUT QIDACHS [facility]; Protocol Last Admin: 03/02/24 08:18 Dose: 2 unit Magnesium Hydroxide (Milk Of Magnesia 30 Ml Oral.Susp) 30 ml PO DAILY PRN PRN Reason: Constipation Melatonin (Melatonin 3 Mg Tablet) 6 mg PO BEDTIME PRN PRN Reason: Insomnia Ondansetron HCl (Ondansetron Hcl 4 Mg/2 Ml Vial) 4 mg IVPUSH Q8H PRN PRN Reason: Nausea and Vomiting Sodium Chloride (0.9 % Sodium Chloride Flush 3 Ml Syringe) [facility] Last Admin: 03/02/24 08:32 Dose: 3 ml Home Medications ?Medication ?Instructions ?Recorded ?Confirmed ?Last Taken ?Type cyanocobalamin (vitamin B-12) 1,000 mcg PO DAILY 03/02/24 03/02/24 Unknown History 1,000 mcg capsule Physical Exam 2 Vital Signs: Vital Signs: Last Vital Signs Temp 98.4 F 03/02/24 02:36 Pulse 92 03/02/24 11:17 Resp 25 H 03/02/24 11:17 BP 107/51 L 03/02/24 11:17 Pulse Ox 95 03/02/24 11:17 O2 Del Method Nasal Cannula 03/02/24 11:17 O2 Flow Rate 3 03/02/24 11:17 Oxygen Flow Rate 2 03/01/24 21:32 BMI result Body Mass Index 35.0 Const: General: no acute distress, alert and awake Eyes: Sclerae: sclerae normal EOM: EOMs intact bilaterally Neck: Neck: Yes no lymphadenopathy, Yes trachea midline and Yes supple Resp: Effort & Inspection: normal respiratory effort and no respiratory distress Auscultation: crackles (Mild bilateral) Cardio: Rate: regular rate Rhythm: regular rhythm Heart sounds: no gallops, no murmurs and no rubs GI: Palpation (GI): Soft to palpation and Other GI palpation findings present ( Nontender) Auscultation: normal bowel sounds Extrem: General: Yes no pedal edema, No clubbing and No cyanosis Results Labs 03/02/24 05:23 03/02/24 05:23 Labs: Short CBC 03/01/24 03/02/24 Range/Units 21:42 05:23 WBC 3.2 L 3.6 L (4.8-10.8) X10*3/uL Hgb 17.4 15.5 (14.0-18.0) g/dl Hct 50.0 44.7 (42.0-52.0) % Plt Count 214 195 (160-400) X10*3/uL BMP 03/01/24 03/02/24 21:42 05:23 Sodium 135 135 Potassium 2.6 L* D 3.1 L Chloride 101 104 Carbon Dioxide 17 L 16 L BUN 43 H 55 H Creatinine 2.05 H 2.92 H Calcium 9.2 8.7 Liver Function 03/01/24 Range/Units 21:42 Total Bilirubin 1.0 (0.0-1.0) mg/dL AST 16 (5-37) U/L ALT 23 (0-40) U/L Alkaline Phosphatase 89 (39-117) U/L Albumin 4.1 (3.5-5.0) g/dL Assessment and Plan (1) Intravascular volume depletion: Status: Acute (2) Acute diarrhea: Status: Acute (3) Acute kidney injury: Status: Acute Plan Impression: 68-year-old gentleman with underlying diabetes mellitus, hypertension, prior history of enteropathogenic E coli admitted with the acute diarrhea with volume depletion and acute kidney injury with intermittent hypotension responsive to IV fluids. Recommendations: Agree with current workup and empiric antibiotics, consider switching to Levaquin. Continue IV fluid support. At this time patient does not require intensive care unit level services, please notify for re-evaluation if patient's condition changes. Discussed with Dr. Boswell.
[2024-03-02] MEDS: Sodium Bicarbonate 8.4% 150 MEQ in Dextrose 5 % 850 ML 100 MEQ IV ×2 (11:56→22:32)
[2024-03-02] MEDS: cefTRIAXone sodium 1 GM in 0.9 % Sodium Chloride 50 ML IV (12:05)
[2024-03-02] MEDS: metroNIDAZOLE/NS 500 MG/100 ML PIGGYBACK 100 MG IV ×2 (12:06→20:28)
[2024-03-02 14:41] LABS: Anion Gap 18 (12-20); Blood Urea Nitrogen 62 mg/dL (9-16); Calcium 8.6 mg/dL (8.4-10.2); Carbon Dioxide 20 mmol/L (22-29); Chloride 103 mmol/L (96-108); Creatinine Clr Calc Pharmacy 24.8; Estimated Glomerular Filt Rate 19; Glucose Random 148 mg/dL (60-115); Potassium 3.3 mmol/L (3.3-5.1); Sodium 138 mmol/L (135-145)
[2024-03-02 18:07] LABS: Glucose, Whole Blood 120 mg/dL (60-115)
[2024-03-02 20:32] LABS: Glucose, Whole Blood 111 mg/dL (60-115)
[2024-03-03] MEDS: Potassium Chloride/H20 10 MEQ/100 ML PIGGYBACK 100 MEQ IV ×5 (00:11→11:05)
[2024-03-03] MEDS: 0.9 % Sodium Chloride Flush 3 ML SYRINGE IVFLUSH ×3 (00:12→20:42)
[2024-03-03 04:00] VITALS: BP 115/57; PULSE 70; RESP 20; TEMP 36.4; O2SAT 94
[2024-03-03] MEDS: metroNIDAZOLE/NS 500 MG/100 ML PIGGYBACK 100 MG IV ×2 (04:58→20:42)
[2024-03-03 06:31] LABS: Hematocrit 42.9 % (42.0-52.0); Hemoglobin 14.8 g/dl (14.0-18.0); Mean Corpuscular HGB Conc 34.5 g/dl (31.0-36.0); Mean Corpuscular Hemoglobin 29.4 pg (27.0-33.0); Mean Corpuscular Volume 85.3 fL (80.0-98.0); Platelet Count 187 X10*3/uL (160-400); Red Blood Count 5.03 X10*6/uL (4.60-5.80); Red Cell Distribution Width 12.8 % (11.0-16.0); White Blood Count 4.6 X10*3/uL (4.8-10.8)
[2024-03-03 06:44] LABS: Alanine Aminotransferase 22 U/L (0-40); Albumin Level 3.6 g/dL (3.5-5.0); Alkaline Phosphatase 57 U/L (39-117); Anion Gap 16 (12-20); Aspartate Amino Transferase 18 U/L (5-37); Bilirubin Direct 0.2 mg/dL (0.0-0.5); Bilirubin Total 0.6 mg/dL (0.0-1.0); Blood Urea Nitrogen 60 mg/dL (9-16); Calcium 8.8 mg/dL (8.4-10.2); Carbon Dioxide 22 mmol/L (22-29); Chloride 106 mmol/L (96-108); Creatinine Clr Calc Pharmacy 30.9; Estimated Glomerular Filt Rate 24; Glucose Fasting 164 mg/dL (60-99); Magnesium 2.2 mg/dL (1.6-2.6); Potassium 2.5 mmol/L (3.3-5.1); Sodium 141 mmol/L (135-145); Total Protein 6.3 g/dL (6.5-8.0)
[2024-03-03] MEDS: Lactated Ringers 1,000 ML 125 ML IVCONT ×3 (07:31→23:59)
[2024-03-03 07:39] LABS: Glucose, Whole Blood 139 mg/dL (60-115)
[2024-03-03 07:41] VITALS: BP 136/73; PULSE 66; RESP 17; TEMP 36.6; O2SAT 97
[2024-03-03] MEDS: Potassium Chloride ER 20 MEQ TAB.ER.PRT 40 MEQ PO (08:47)
--- NOTE | 2024-03-03 09:25 | HO.PM.IMPN ---
Subjective Subjective Date of Service: 03/03/24 Interval History: still with diarrhea, but feeling a bit stronger today Physical Exam Vital Signs: Vital Signs: Last Vital Signs Temp 97.8 F 03/03/24 07:41 Pulse 66 03/03/24 07:41 Resp 17 03/03/24 07:41 BP 136/73 03/03/24 07:41 Pulse Ox 97 03/03/24 07:41 O2 Del Method Nasal Cannula 03/03/24 07:41 O2 Flow Rate 2 03/03/24 07:41 Oxygen Flow Rate 2 03/01/24 21:32 BMI result Body Mass Index 35.0 Const: General: no acute distress, alert and awake Eyes: Sclerae: sclerae normal EOM: EOMs intact bilaterally Neck: Neck: Yes no lymphadenopathy, Yes trachea midline and Yes supple Resp: Effort & Inspection: normal respiratory effort and no respiratory distress Auscultation: crackles (Mild bilateral) Cardio: Rate: regular rate Rhythm: regular rhythm Heart sounds: no gallops, no murmurs and no rubs GI: Palpation (GI): Soft to palpation and Other GI palpation findings present ( Nontender) Auscultation: normal bowel sounds Extrem: General: Yes no pedal edema, No clubbing and No cyanosis Objective Data Active Medications Acetaminophen (Acetaminophen 325 Mg Tablet) 650 mg PO Q6H PRN PRN Reason: Pain, Mild (Pain Scale 1-3), fever or headache Calcium Carbonate (Calcium Carbonate 750 Mg Tab.Chew) 750 mg PO Q4H PRN PRN Reason: Heartburn Enoxaparin Sodium (Enoxaparin Sodium 30 Mg/0.3 Ml Syringe) 30 mg SUBCUT Q24H [facility] Last Admin: 03/02/24 09:32 Dose: Not Given Documented By: TAYLER Non-Admin Reason: Lovenox given today per previous order Glucose (Glucose Gel 15 Gm Gel..Gram.) 15 gm PO Q15M PRN; Protocol PRN Reason: per Hypoglycemia Standing Ord. Dextrose (D10) 250 mls @ 750 mls/hr IV Q15M PRN; Protocol PRN Reason: per Hypoglycemia Standing Ord. Ceftriaxone Sodium 1 gm/ (Sodium Chloride) 50 mls @ 100 mls/hr IV Q24H [facility] Last Infusion: 03/02/24 13:07 Dose: Infused Documented By: TAYLER Metronidazole (Flagyl) 500 mg in 100 mls @ 100 mls/hr IV Q8H [facility] Last Infusion: 03/03/24 06:08 Dose: Infused Documented By: CINTHIA Potassium Chloride (Potassium Chloride/H20) 10 meq in 100 mls @ 100 mls/hr IV Q1H [facility] Stop: 03/03/24 10:44 Last Admin: 03/03/24 08:47 Dose: 100 mls/hr Documented By: HAMILTON Lactated Ringer's (Lr) 1,000 mls @ 125 mls/hr IVCONT .Q8H [facility] Last Admin: 03/03/24 07:31 Dose: 125 mls/hr Documented By: HAMILTON Insulin Human Lispro (Insulin Lispro 100 Unit/Ml 3 Ml Vial) 0 unit SUBCUT QIDACHS [facility]; Protocol Last Admin: 03/03/24 07:42 Dose: Not Given Documented By: HAMILTON Non-Admin Reason: No Insulin Coverage Magnesium Hydroxide (Milk Of Magnesia 30 Ml Oral.Susp) 30 ml PO DAILY PRN PRN Reason: Constipation Melatonin (Melatonin 3 Mg Tablet) 6 mg PO BEDTIME PRN PRN Reason: Insomnia Ondansetron HCl (Ondansetron Hcl 4 Mg/2 Ml Vial) 4 mg IVPUSH Q8H PRN PRN Reason: Nausea and Vomiting Sodium Chloride (0.9 % Sodium Chloride Flush 3 Ml Syringe) 3 ml IVFLUSH QSHIFT [facility] Last Admin: 03/03/24 07:35 Dose: 3 ml Documented By: HAMILTON Labs 03/03/24 05:52 03/03/24 05:52 Labs: Laboratory Results - last 24 hr 03/02/24 03/02/24 03/02/24 05:23 11:33 14:21 MCV MCH MCHC RDW Plt Count MPV Absolute Nucleated RBC Nucleated RBC % (auto) Anion Gap 18 Estim Creat Clear Calc 24.8 Estimated GFR 19 POC Glucose 125 H Random Glucose 148 H Fasting Glucose Calcium 8.6 Phosphorus 5.0 H Magnesium 1.8 Total Bilirubin Direct Bilirubin AST ALT Alkaline Phosphatase Total Protein Albumin 03/02/24 03/02/24 03/03/24 18:04 20:28 05:52 MCV 85.3 MCH 29.4 MCHC 34.5 RDW 12.8 Plt Count 187 MPV 10.0 Absolute Nucleated RBC 0.000 Nucleated RBC % (auto) 0.0 Anion Gap 16 Estim Creat Clear Calc 30.9 Estimated GFR 24 POC Glucose 120 H 111 Random Glucose Fasting Glucose 164 H Calcium 8.8 Phosphorus Magnesium 2.2 Total Bilirubin 0.6 Direct Bilirubin 0.2 AST 18 ALT 22 Alkaline Phosphatase 57 Total Protein 6.3 L Albumin 3.6 03/03/24 07:31 MCV MCH MCHC RDW Plt Count MPV Absolute Nucleated RBC Nucleated RBC % (auto) Anion Gap Estim Creat Clear Calc Estimated GFR POC Glucose 139 H Random Glucose Fasting Glucose Calcium Phosphorus Magnesium Total Bilirubin Direct Bilirubin AST ALT Alkaline Phosphatase Total Protein Albumin Microbiology Microbiology Results: Microbiology 03/01/24 21:42 Blood Culture - Preliminary Blood - Venous No growth after 24 hours. 03/01/24 21:42 Blood Culture - Preliminary Blood - Venous No growth after 24 hours. Assessment and Plan (1) Acute metabolic encephalopathy: Status: Acute Plan 68M PMH htn, CVA, hld, dm, bph presented with lethargy sepsis and acute metabolic encephalopathy due to Gastroeneteritis complicated by hypovolemia and hypotension from diarrhea continue fluid resuscitation - improving follow up panel, cultures changed to rocephin, flagyl dc rectal tube when stool slows/ starts forming acute hypoxic respiratory failure wean o2 as tolerated acute hypokalemia and hypomagnesemia due to diarrhea, replace and monitor ish with acute metabolic acidosis due to diarrhea ivf, monitor history of cva asa, statin dvt prophylaxis - lovenox full ocde reason for continued hospitalization:severe hypokalemia Quality Stroke Does the patient have a stroke diagnosis?: No VTE Prior VTE?: No VTE Risk Level:: Medical - moderate - high VTE Device Contraindication: Treatment Not Indicated VTE Drug Contraindication: N/A - Med Ordered
--- NOTE | 2024-03-03 09:46 | MHC.CM.PN ---
IMM 03/03/24, sent to HCP, Betsy, she is pt.'s niece and PHOTOGRAPHY INSTRUCTOR. She assists him with personal care, meals, laundry. Pt. lives in one part of multi-family home, niece in same home, the other apt. Pt does not have DME. PCP is Dr. Guthrie. Family to transport home at [place]. DCP: home with services (he had VNA services a few months ago, HCP thinks it was from [facility]). CM to follow and assist with DC planning.
[2024-03-03] MEDS: Enoxaparin Sodium 30 MG/0.3 ML SYRINGE SUBCUT (11:07)
[2024-03-03] MEDS: cefTRIAXone sodium 1 GM in 0.9 % Sodium Chloride 50 ML IV (11:10)
[2024-03-03 11:38] LABS: Glucose, Whole Blood 129 mg/dL (60-115)
[2024-03-03 11:40] VITALS: BP 145/81; PULSE 70; RESP 17; TEMP 36.3; O2SAT 96
[2024-03-03] MEDS: metroNIDAZOLE/NS 500 MG/100 ML PIGGYBACK 200 MG IV (12:30)
[2024-03-03 15:47] VITALS: BP 136/86; PULSE 69; RESP 17; TEMP 36.2; O2SAT 96
[2024-03-03 16:23] LABS: Glucose, Whole Blood 115 mg/dL (60-115)
[2024-03-03 20:00] VITALS: BP 113/61; PULSE 71; RESP 18; TEMP 36.5; O2SAT 97
[2024-03-03 20:35] LABS: Glucose, Whole Blood 151 mg/dL (60-115)
[2024-03-03 20:38] VITALS: BP 147/82; PULSE 68; RESP 18; O2SAT 94
[2024-03-03] MEDS: ondansetron HCL 4 MG/2 ML VIAL IVPUSH (20:41)
[2024-03-03] MEDS: Insulin Lispro 100 UNIT/ML 3 ML VIAL SUBCUT (20:41)
--- NOTE | 2024-03-03 20:50 | PC.NURSE ---
Addendum entered by Harriett Ortega RN 03/03/24 22:04: Pt denies further nausea or dizziness on reassessment, states I feel normal to investigative writer with control room tender at bedside. Original Note: Assumed care of patient at 19:00. Patient is Macedonian speaking only, control room tender used at bedside. On assessment, pt is A&Ox2 to self and place; states the season is summer but that year is 2020 and unable to state month. Pt reoriented. Pt c/o dizziness and nausea, though vague and unable to describe when these complaints began as pt was woken for assessment. POC obtained by investigative writer 151. Rectal tube assessed and irrigated, patent. Pt denies vomiting but agreeable to offered prn nausea medication. Vitals obtained by investigative writer, stable. Covering Dr. Valles notified and will review. Prn zofran given, effectiveness pending. HOB elevated as a precaution and pt educated. Bed alarm on and safety measures in place.
--- NOTE | 2024-03-03 23:56 | PC.NURSE ---
Assumed care of patient at 19:00. Please see shift assessment for full details. Bed alarm on and safety measures in place. Handoff report given 23:30.
[2024-03-04] VITALS (8 sets, daily range): BP systolic 133–179; BP diastolic 77–88; PULSE 59–69; RESP 16–20; TEMP 36.1–37.1; O2SAT 93–99
[2024-03-04] MEDS: metroNIDAZOLE/NS 500 MG/100 ML PIGGYBACK 100 MG IV (04:54)
[2024-03-04 06:19] LABS: Hematocrit 41.8 % (42.0-52.0); Hemoglobin 14.2 g/dl (14.0-18.0); Mean Corpuscular Hemoglobin 29.7 pg (27.0-33.0); Mean Corpuscular Volume 87.4 fL (80.0-98.0); Mean Platelet Volume 10.1 fL (9.4-12.4); Platelet Count 214 X10*3/uL (160-400); Red Blood Count 4.78 X10*6/uL (4.60-5.80); Red Cell Distribution Width 12.9 % (11.0-16.0); White Blood Count 4.9 X10*3/uL (4.8-10.8)
[2024-03-04 06:49] LABS: Alanine Aminotransferase 21 U/L (0-40); Albumin Level 3.3 g/dL (3.5-5.0); Alkaline Phosphatase 54 U/L (39-117); Anion Gap 11 (12-20); Aspartate Amino Transferase 18 U/L (5-37); Bilirubin Direct 0.2 mg/dL (0.0-0.5); Bilirubin Total 0.5 mg/dL (0.0-1.0); Blood Urea Nitrogen 41 mg/dL (9-16); Calcium 8.9 mg/dL (8.4-10.2); Carbon Dioxide 27 mmol/L (22-29); Chloride 108 mmol/L (96-108); Creatinine Clr Calc Pharmacy 51.6; Estimated Glomerular Filt Rate 44; Glucose Fasting 131 mg/dL (60-99); Magnesium 2.2 mg/dL (1.6-2.6); Potassium 3.4 mmol/L (3.3-5.1); Sodium 143 mmol/L (135-145); Total Protein 5.7 g/dL (6.5-8.0)
[2024-03-04 07:43] LABS: Glucose, Whole Blood 135 mg/dL (60-115)
[2024-03-04] MEDS: 0.9 % Sodium Chloride Flush 3 ML SYRINGE IVFLUSH ×2 (07:48→16:58)
[2024-03-04] MEDS: Potassium Chloride ER 20 MEQ TAB.ER.PRT 40 MEQ PO (07:48)
[2024-03-04] MEDS: Lactated Ringers 1,000 ML 125 ML IVCONT (07:49)
[2024-03-04] MEDS: Enoxaparin Sodium 30 MG/0.3 ML SYRINGE SUBCUT (08:25)
--- NOTE | 2024-03-04 10:09 | P.PNIM_ITS ---
Subjective Subjective Date of Service: 03/04/24 Interval History: still with diarrhea, but feeling a bit stronger today Physical Exam 2 Vital Signs: Vital Signs: Last Vital Signs Temp 97.4 F 03/04/24 08:00 Pulse 67 03/04/24 08:00 Resp 16 03/04/24 08:00 BP 138/77 03/04/24 08:00 Pulse Ox 99 03/04/24 08:00 O2 Del Method Room Air 03/04/24 08:00 O2 Flow Rate 2 03/04/24 04:00 Oxygen Flow Rate 2 03/01/24 21:32 BMI result Body Mass Index 35.0 Const: General: no acute distress, alert and awake Eyes: Sclerae: sclerae normal EOM: EOMs intact bilaterally Neck: Neck: Yes no lymphadenopathy, Yes trachea midline and Yes supple Resp: Effort & Inspection: normal respiratory effort and no respiratory distress Auscultation: crackles (Mild bilateral) Cardio: Rate: regular rate Rhythm: regular rhythm Heart sounds: no gallops, no murmurs and no rubs GI: Palpation (GI): Soft to palpation and Other GI palpation findings present ( Nontender) Auscultation: normal bowel sounds Extrem: General: Yes no pedal edema, No clubbing and No cyanosis Objective Data Active Medications Acetaminophen (Acetaminophen 325 Mg Tablet) 650 mg PO Q6H PRN PRN Reason: Pain, Mild (Pain Scale 1-3), fever or headache Calcium Carbonate (Calcium Carbonate 750 Mg Tab.Chew) 750 mg PO Q4H PRN PRN Reason: Heartburn Enoxaparin Sodium (Enoxaparin Sodium 30 Mg/0.3 Ml Syringe) 30 mg SUBCUT Q24H [facility] Last Admin: 03/04/24 08:25 Dose: 30 mg Documented By: SALAS Glucose (Glucose Gel 15 Gm Gel..Gram.) 15 gm PO Q15M PRN; Protocol PRN Reason: per Hypoglycemia Standing Ord. Dextrose (D10) 250 mls @ 750 mls/hr IV Q15M PRN; Protocol PRN Reason: per Hypoglycemia Standing Ord. Ceftriaxone Sodium 1 gm/ (Sodium Chloride) 50 mls @ 100 mls/hr IV Q24H [facility] Last Infusion: 03/03/24 11:56 Dose: Infused Documented By: HAMILTON Lactated Ringer's (Lr) 1,000 mls @ 75 mls/hr IVCONT .[id number] [facility] Last Infusion: 03/04/24 09:05 Dose: 75 mls/hr Documented By: SALAS Insulin Human Lispro (Insulin Lispro 100 Unit/Ml 3 Ml Vial) 0 unit SUBCUT QIDACHS [facility]; Protocol Last Admin: 03/04/24 07:49 Dose: Not Given Documented By: SALAS Non-Admin Reason: No Insulin Coverage Magnesium Hydroxide (Milk Of Magnesia 30 Ml Oral.Susp) 30 ml PO DAILY PRN PRN Reason: Constipation Melatonin (Melatonin 3 Mg Tablet) 6 mg PO BEDTIME PRN PRN Reason: Insomnia Metronidazole (Metronidazole 500 Mg Tablet) 500 mg PO Q8H [facility] Ondansetron HCl (Ondansetron Hcl 4 Mg/2 Ml Vial) 4 mg IVPUSH Q8H PRN PRN Reason: Nausea and Vomiting Last Admin: 03/03/24 20:41 Dose: 4 mg Documented By: PANCHO Sodium Chloride (0.9 % Sodium Chloride Flush 3 Ml Syringe) 3 ml IVFLUSH QSHIFT [facility] Last Admin: 03/04/24 07:48 Dose: 3 ml Documented By: SALAS Labs 03/04/24 06:00 03/04/24 06:00 Labs: Laboratory Results - last 24 hr 03/03/24 03/03/24 03/03/24 11:29 16:20 20:28 MCV MCH MCHC RDW Plt Count MPV Absolute Nucleated RBC Nucleated RBC % (auto) Anion Gap Estim Creat Clear Calc Estimated GFR POC Glucose 129 H 115 151 H Fasting Glucose Calcium Magnesium Total Bilirubin Direct Bilirubin AST ALT Alkaline Phosphatase Total Protein Albumin 03/04/24 03/04/24 06:00 07:40 MCV 87.4 MCH 29.7 MCHC 34.0 RDW 12.9 Plt Count 214 MPV 10.1 Absolute Nucleated RBC 0.000 Nucleated RBC % (auto) 0.0 Anion Gap 11 L Estim Creat Clear Calc 51.6 Estimated GFR 44 POC Glucose 135 H Fasting Glucose 131 H Calcium 8.9 Magnesium 2.2 Total Bilirubin 0.5 Direct Bilirubin 0.2 AST 18 ALT 21 Alkaline Phosphatase 54 Total Protein 5.7 L Albumin 3.3 L Microbiology Microbiology Results: Microbiology 03/01/24 21:42 Blood Culture - Preliminary Blood - Venous No growth after 48 hours. 03/01/24 21:42 Blood Culture - Preliminary Blood - Venous No growth after 48 hours. Assessment and Plan (1) Acute metabolic encephalopathy: Status: Acute Plan 68M PMH htn, CVA, hld, dm, bph presented with lethargy sepsis and acute metabolic encephalopathy due to Gastroeneteritis complicated by hypovolemia and hypotension from diarrhea continue fluid resuscitation - improving follow up panel, cultures continue rocephin, flagyl dc rectal tube when stool slows/ starts forming acute hypoxic respiratory failure wean o2 as tolerated acute hypokalemia and hypomagnesemia due to diarrhea, replace and monitor ish with acute metabolic acidosis due to diarrhea ivf, monitor history of cva asa, statin dvt prophylaxis - lovenox full ocde reason for continued hospitalization:still with severe diarrhea requiring close electrolyte monitoring and ivf Quality Stroke Does the patient have a stroke diagnosis?: No VTE Prior VTE?: No VTE Risk Level:: Medical - moderate - high VTE Device Contraindication: Treatment Not Indicated VTE Drug Contraindication: N/A - Med Ordered
[2024-03-04 11:38] LABS: Glucose, Whole Blood 132 mg/dL (60-115)
[2024-03-04] MEDS: cefTRIAXone sodium 1 GM in 0.9 % Sodium Chloride 50 ML IV (12:27)
[2024-03-04] MEDS: metroNIDAZOLE 500 MG TABLET PO ×2 (12:32→22:48)
--- NOTE | 2024-03-04 15:12 | MHC.CM.PN ---
EMR reviewed and per MD rounds, pt is not medically cleared for discharge due to management of severe diarrhea requiring electrolyte monitoring and IV fluids.
[2024-03-04 15:59] LABS: Adenovirus F 40/41 Not Detected (Not Detect.); Astrovirus Not Detected (Not Detect.); Cryptosporidium Not Detected (Not Detect.); Cyclospora cayetanensis Not Detected (Not Detect.); E. coli EAEC Detected (Not Detect.); E. coli EPEC Not Detected (Not Detect.); E. coli ETEC Not Detected (Not Detect.); E. coli STEC Not Detected (Not Detect.); Entamoeba histolytica Not Detected (Not Detect.); Giardia lamblia Not Detected (Not Detect.); Norovirus GI/GII Not Detected (Not Detect.); Plesiomonas shigelloides Not Detected (Not Detect.); Rotavirus A Not Detected (Not Detect.); Salmonella Not Detected (Not Detect.); Sapovirus Not Detected (Not Detect.); Shigella sp./EIEC Not Detected (Not Detect.); Vibrio Not Detected (Not Detect.); Vibrio Cholerae Not Detected (Not Detect.); Yersinia enterocolitica Not Detected (Not Detect.)
[2024-03-04 16:33] LABS: Glucose, Whole Blood 123 mg/dL (60-115)
[2024-03-04 16:40] LABS: Campylobacter Detected (Not Detect.)
[2024-03-04 20:50] LABS: Glucose, Whole Blood 136 mg/dL (60-115)
[2024-03-04] MEDS: Lactated Ringers 1,000 ML 75 ML IVCONT (22:51)
[2024-03-04] MEDS: Calcium Carbonate 750 MG TAB.CHEW PO (22:55)
[2024-03-05 03:51] VITALS: BP 125/62; PULSE 55; RESP 20; TEMP 36.3; O2SAT 94
[2024-03-05] MEDS: metroNIDAZOLE 500 MG TABLET PO ×3 (04:47→20:39)
[2024-03-05 06:30] LABS: Hematocrit 42.2 % (42.0-52.0); Hemoglobin 14.4 g/dl (14.0-18.0); Mean Corpuscular HGB Conc 34.1 g/dl (31.0-36.0); Mean Corpuscular Hemoglobin 29.8 pg (27.0-33.0); Mean Corpuscular Volume 87.4 fL (80.0-98.0); Mean Platelet Volume 9.7 fL (9.4-12.4); Platelet Count 228 X10*3/uL (160-400); Red Blood Count 4.83 X10*6/uL (4.60-5.80); Red Cell Distribution Width 12.6 % (11.0-16.0); White Blood Count 5.9 X10*3/uL (4.8-10.8)
[2024-03-05 07:00] LABS: Anion Gap 11 (12-20); Blood Urea Nitrogen 25 mg/dL (9-16); Calcium 9.2 mg/dL (8.4-10.2); Carbon Dioxide 29 mmol/L (22-29); Chloride 108 mmol/L (96-108); Estimated Glomerular Filt Rate > 60; Glucose Fasting 125 mg/dL (60-99); Magnesium 2.1 mg/dL (1.6-2.6); Potassium 3.7 mmol/L (3.3-5.1); Sodium 144 mmol/L (135-145)
[2024-03-05 07:34] LABS: Glucose, Whole Blood 130 mg/dL (60-115)
[2024-03-05 08:00] VITALS: BP 158/86; PULSE 68; RESP 18; TEMP 36.4; O2SAT 93
[2024-03-05] MEDS: 0.9 % Sodium Chloride Flush 3 ML SYRINGE IVFLUSH (08:58)
[2024-03-05] MEDS: Lactated Ringers 1,000 ML 75 ML IVCONT ×2 (08:59→23:30)
[2024-03-05] MEDS: Enoxaparin Sodium 30 MG/0.3 ML SYRINGE SUBCUT (08:59)
--- NOTE | 2024-03-05 09:55 | P.CDIM_ITS ---
PROVIDER RESPONSE TEXT: To clarify, the appropriate diagnosis supported by the clinical indicators: Gastroenteritis: bacterial QUERY TEXT: PHYSICIAN'S DOCUMENTATION REQUEST Date of Query: 03/05/2024 09:44 AM EDT Patient Name: Jose Saez Admit Date: 03/02/2024 Dear Rafy Boswell, A review of the medical record indicates additional documentation may be needed. Please review below and update the documentation accordingly. Clinical Indicators: Progress notes within the Plan: Sepsis and acute metabolic encephalopathy due to Gastroenteritis. Continue fluid resuscitation-improving Continue Rocephin, Flagyl Based on the above, could you clarify any further specifics to the noted diagnosis of Gastroenteritis if known? Gastroenteritis Toxic, viral, infectious, noninfectious, nonbacterial etc. Other (explain) Clinically unable to determine (explain) Thank you, Falguni Chong, CCS, CDIS Use of terms such as suspected, likely, concern for, or probable (associated with a specific diagnosi s that is being evaluated, monitored, or treated as if it exists) are acceptable and can be coded in the inpatient se tting, when documented at the time of discharge. Please use your independent medical judgment in providing your response. THIS QUERY IS PART OF THE PERMANENT MEDICAL RECORD
[2024-03-05 11:43] LABS: Glucose, Whole Blood 131 mg/dL (60-115)
[2024-03-05] MEDS: cefTRIAXone sodium 1 GM in 0.9 % Sodium Chloride 50 ML IV (11:52)
[2024-03-05 12:00] VITALS: BP 167/88; PULSE 64; RESP 20; TEMP 36.1; O2SAT 95
--- NOTE | 2024-03-05 12:17 | P.PNIM_ITS ---
Subjective Subjective Date of Service: 03/05/24 Interval History: improving, but still with loose stools, high volume in rectal tube Physical Exam 2 Vital Signs: Vital Signs: Last Vital Signs Temp 97.6 F 03/05/24 08:00 Pulse 68 03/05/24 08:00 Resp 18 03/05/24 08:00 BP 158/86 H 03/05/24 08:00 Pulse Ox 93 03/05/24 08:00 O2 Del Method Room Air 03/05/24 08:00 O2 Flow Rate 2 03/04/24 15:17 Oxygen Flow Rate 2 03/01/24 21:32 BMI result Body Mass Index 35.0 Const: General: no acute distress, alert and awake Eyes: Sclerae: sclerae normal EOM: EOMs intact bilaterally Neck: Neck: Yes no lymphadenopathy, Yes trachea midline and Yes supple Resp: Effort & Inspection: normal respiratory effort and no respiratory distress Auscultation: crackles (Mild bilateral) Cardio: Rate: regular rate Rhythm: regular rhythm Heart sounds: no gallops, no murmurs and no rubs GI: Palpation (GI): Soft to palpation and Other GI palpation findings present ( Nontender) Auscultation: normal bowel sounds Extrem: General: Yes no pedal edema, No clubbing and No cyanosis Objective Data Active Medications Acetaminophen (Acetaminophen 325 Mg Tablet) 650 mg PO Q6H PRN PRN Reason: Pain, Mild (Pain Scale 1-3), fever or headache Calcium Carbonate (Calcium Carbonate 750 Mg Tab.Chew) 750 mg PO Q4H PRN PRN Reason: Heartburn Last Admin: 03/04/24 22:55 Dose: 750 mg Documented By: DAVID Enoxaparin Sodium (Enoxaparin Sodium 30 Mg/0.3 Ml Syringe) 30 mg SUBCUT Q24H [facility] Last Admin: 03/05/24 08:59 Dose: 30 mg Documented By: SALAS Glucose (Glucose Gel 15 Gm Gel..Gram.) 15 gm PO Q15M PRN; Protocol PRN Reason: per Hypoglycemia Standing Ord. Dextrose (D10) 250 mls @ 750 mls/hr IV Q15M PRN; Protocol PRN Reason: per Hypoglycemia Standing Ord. Ceftriaxone Sodium 1 gm/ (Sodium Chloride) 50 mls @ 100 mls/hr IV Q24H [facility] Last Admin: 03/05/24 11:52 Dose: 100 mls/hr Documented By: SALAS Lactated Ringer's (Lr) 1,000 mls @ 75 mls/hr IVCONT .[id number] [facility] Last Admin: 03/05/24 08:59 Dose: 75 mls/hr Documented By: SALAS Insulin Human Lispro (Insulin Lispro 100 Unit/Ml 3 Ml Vial) 0 unit SUBCUT QIDACHS [facility]; Protocol Last Admin: 03/05/24 11:47 Dose: Not Given Documented By: SALAS Non-Admin Reason: No Insulin Coverage Magnesium Hydroxide (Milk Of Magnesia 30 Ml Oral.Susp) 30 ml PO DAILY PRN PRN Reason: Constipation Melatonin (Melatonin 3 Mg Tablet) 6 mg PO BEDTIME PRN PRN Reason: Insomnia Metronidazole (Metronidazole 500 Mg Tablet) 500 mg PO Q8H [facility] Last Admin: 03/05/24 04:47 Dose: 500 mg Documented By: DAVID Ondansetron HCl (Ondansetron Hcl 4 Mg/2 Ml Vial) 4 mg IVPUSH Q8H PRN PRN Reason: Nausea and Vomiting Last Admin: 03/03/24 20:41 Dose: 4 mg Documented By: PANCHO Sodium Chloride (0.9 % Sodium Chloride Flush 3 Ml Syringe) [facility] Last Admin: 03/05/24 08:58 Dose: 3 ml Documented By: SALAS Labs 03/05/24 05:55 03/05/24 05:55 Labs: Laboratory Results - last 24 hr 03/04/24 03/04/24 03/04/24 11:45 16:28 20:31 MCV MCH MCHC RDW Plt Count MPV Absolute Nucleated RBC Nucleated RBC % (auto) Anion Gap Estim Creat Clear Calc Estimated GFR POC Glucose 123 H 136 H Fasting Glucose Calcium Magnesium Stl C. cayetanensis PCR Not Detected Stool Rotavirus A PCR Not Detected Stl Adenov F 40/41 PCR Not Detected Stool Astrovirus (PCR) Not Detected Stool Campylobacter PCR Detected A Stool Cryptosporidium PCR Not Detected Stl Sh Tox Pr E STEC PCR Not Detected Stool E coli O157 PCR Not applicable Stl Enterotoxigenic E PCR Not Detected Stool EPEC (PCR) Not Detected Stool EAEC (PCR) Detected A Stl E. histolytica PCR Not Detected Stool Giardia Lamblia PCR Not Detected Stl P. shigelloides PCR Not Detected Stool Salmonella PCR Not Detected Stool Sapovirus (PCR) Not Detected Stl Shigella/EIEC PCR Not Detected St Y.enterocolitica PCR Not Detected Stool Vibrio (PCR) Not Detected Stl Vibrio cholerae PCR Not Detected Stl Norovirus GI/GII PCR Not Detected 03/05/24 03/05/24 03/05/24 05:55 07:27 11:39 MCV 87.4 MCH 29.8 MCHC 34.1 RDW 12.6 Plt Count 228 MPV 9.7 Absolute Nucleated RBC 0.000 Nucleated RBC % (auto) 0.0 Anion Gap 11 L Estim Creat Clear Calc 68.0 Estimated GFR > 60 POC Glucose 130 H 131 H Fasting Glucose 125 H Calcium 9.2 Magnesium 2.1 Stl C. cayetanensis PCR Stool Rotavirus A PCR Stl Adenov F 40/41 PCR Stool Astrovirus (PCR) Stool Campylobacter PCR Stool Cryptosporidium PCR Stl Sh Tox Pr E STEC PCR Stool E coli O157 PCR Stl Enterotoxigenic E PCR Stool EPEC (PCR) Stool EAEC (PCR) Stl E. histolytica PCR Stool Giardia Lamblia PCR Stl P. shigelloides PCR Stool Salmonella PCR Stool Sapovirus (PCR) Stl Shigella/EIEC PCR St Y.enterocolitica PCR Stool Vibrio (PCR) Stl Vibrio cholerae PCR Stl Norovirus GI/GII PCR Assessment and Plan (1) Acute metabolic encephalopathy: Status: Acute Plan 68M PMH htn, CVA, hld, dm, bph presented with lethargy sepsis and acute metabolic encephalopathy due to bacterial Gastroeneteritis complicated by hypovolemia and hypotension from diarrhea still wtih diarrhea in rectal tube but improving gi panel positive for camplobacter and EAEC continue rocephin, flagyl dc rectal tube when stool slows/ starts forming acute hypoxic respiratory failure now on room air acute hypokalemia and hypomagnesemia due to diarrhea, replace and monitor ish with acute metabolic acidosis due to diarrhea improving history of cva asa, statin dvt prophylaxis - lovenox full ocde reason for continued hospitalization:still with severe diarrhea requiring close electrolyte monitoring and rectal tube Quality Stroke Does the patient have a stroke diagnosis?: No VTE Prior VTE?: No VTE Risk Level:: Medical - moderate - high VTE Device Contraindication: Treatment Not Indicated VTE Drug Contraindication: N/A - Med Ordered
[2024-03-05 15:56] VITALS: BP 168/87; PULSE 53; RESP 20; TEMP 36.7; O2SAT 93
[2024-03-05 16:12] LABS: Glucose, Whole Blood 123 mg/dL (60-115)
[2024-03-05 19:39] VITALS: BP 170/87; PULSE 52; RESP 21; TEMP 36.4; O2SAT 94
[2024-03-05 20:29] LABS: Glucose, Whole Blood 128 mg/dL (60-115)
[2024-03-05] MEDS: Acetaminophen 325 MG TABLET 650 MG PO (23:35)
[2024-03-06] VITALS: BP 203/102; PULSE 70; RESP 20; TEMP 36.1; O2SAT 92
[2024-03-06] MEDS: Ketorolac Tromethamine 15 MG/ML VIAL IVPUSH (01:39)
[2024-03-06] MEDS: lisinopriL 10 MG TABLET PO (01:39)
[2024-03-06 03:54] VITALS: BP 176/93; PULSE 65; RESP 22; TEMP 36.4; O2SAT 94
[2024-03-06] MEDS: metroNIDAZOLE 500 MG TABLET PO ×3 (04:49→20:04)
[2024-03-06 07:15] LABS: Glucose, Whole Blood 118 mg/dL (60-115)
[2024-03-06 07:55] VITALS: BP 160/90; PULSE 73; RESP 20; TEMP 36.7; O2SAT 93
[2024-03-06 08:31] LABS: Hematocrit 44.2 % (42.0-52.0); Hemoglobin 15.2 g/dl (14.0-18.0); Mean Corpuscular HGB Conc 34.4 g/dl (31.0-36.0); Mean Corpuscular Hemoglobin 29.6 pg (27.0-33.0); Mean Corpuscular Volume 86.2 fL (80.0-98.0); Platelet Count 243 X10*3/uL (160-400); Red Blood Count 5.13 X10*6/uL (4.60-5.80); Red Cell Distribution Width 12.6 % (11.0-16.0); White Blood Count 8.7 X10*3/uL (4.8-10.8)
[2024-03-06] MEDS: 0.9 % Sodium Chloride Flush 3 ML SYRINGE IVFLUSH (08:38)
[2024-03-06] MEDS: Enoxaparin Sodium 30 MG/0.3 ML SYRINGE SUBCUT (08:38)
--- NOTE | 2024-03-06 08:44 | HO.PM.IMPN ---
Subjective Subjective Date of Service: 03/06/24 Interval History: Follow up viral gastroenteritis having pain to baker and rectal tube Physical Exam Vital Signs: Vital Signs: Last Vital Signs Temp 98.0 F 03/06/24 07:55 Pulse 73 03/06/24 07:55 Resp 20 03/06/24 07:55 BP 160/90 H 03/06/24 07:55 Pulse Ox 93 03/06/24 07:55 O2 Del Method Room Air 03/06/24 07:55 O2 Flow Rate 2 03/04/24 15:17 Oxygen Flow Rate 2 03/01/24 21:32 BMI result Body Mass Index 35.0 Appearing in no acute distress lung sounds are clear to auscultation heart regular rate rhythm, clear S1, S2 positive bowel sounds, abdomen is soft, nontender neuro patient is alert x3, no focal deficits Objective Data Active Medications Acetaminophen (Acetaminophen 325 Mg Tablet) 650 mg PO Q6H PRN PRN Reason: Pain, Mild (Pain Scale 1-3), fever or headache Last Admin: 03/05/24 23:35 Dose: 650 mg Documented By: DAVID Calcium Carbonate (Calcium Carbonate 750 Mg Tab.Chew) 750 mg PO Q4H PRN PRN Reason: Heartburn Last Admin: 03/04/24 22:55 Dose: 750 mg Documented By: DAVID Enoxaparin Sodium (Enoxaparin Sodium 30 Mg/0.3 Ml Syringe) 30 mg SUBCUT Q24H [facility] Last Admin: 03/06/24 08:38 Dose: 30 mg Documented By: ABBIE Glucose (Glucose Gel 15 Gm Gel..Gram.) 15 gm PO Q15M PRN; Protocol PRN Reason: per Hypoglycemia Standing Ord. Dextrose (D10) 250 mls @ 750 mls/hr IV Q15M PRN; Protocol PRN Reason: per Hypoglycemia Standing Ord. Ceftriaxone Sodium 1 gm/ (Sodium Chloride) 50 mls @ 100 mls/hr IV Q24H [facility] Last Infusion: 03/05/24 12:31 Dose: Infused Documented By: SALAS Insulin Human Lispro (Insulin Lispro 100 Unit/Ml 3 Ml Vial) 0 unit SUBCUT QIDACHS [facility]; Protocol Last Admin: 03/06/24 07:31 Dose: Not Given Documented By: ABBIE Non-Admin Reason: No Insulin Coverage Lisinopril (Lisinopril 10 Mg Tablet) 10 mg PO DAILY [facility]; Protocol Last Admin: 03/06/24 01:39 Dose: 10 mg Documented By: DAVID Magnesium Hydroxide (Milk Of Magnesia 30 Ml Oral.Susp) 30 ml PO DAILY PRN PRN Reason: Constipation Melatonin (Melatonin 3 Mg Tablet) 6 mg PO BEDTIME PRN PRN Reason: Insomnia Metronidazole (Metronidazole 500 Mg Tablet) 500 mg PO Q8H [facility] Last Admin: 03/06/24 04:49 Dose: 500 mg Documented By: DAVID Ondansetron HCl (Ondansetron Hcl 4 Mg/2 Ml Vial) 4 mg IVPUSH Q8H PRN PRN Reason: Nausea and Vomiting Last Admin: 03/03/24 20:41 Dose: 4 mg Documented By: PANCHO Sodium Chloride (0.9 % Sodium Chloride Flush 3 Ml Syringe) 3 ml IVFLUSH QSHIFT [facility] Last Admin: 03/06/24 08:38 Dose: 3 ml Documented By: BROB Labs 03/06/24 07:44 03/06/24 07:44 Labs: Laboratory Results - last 24 hr 03/05/24 03/05/24 03/05/24 11:39 16:03 19:59 MCV MCH MCHC RDW Plt Count MPV Absolute Nucleated RBC Nucleated RBC % (auto) Anion Gap Estim Creat Clear Calc Estimated GFR POC Glucose 131 H 123 H 128 H Random Glucose Calcium Magnesium 03/06/24 03/06/24 03/06/24 07:11 07:44 08:25 MCV 86.2 MCH 29.6 MCHC 34.4 RDW 12.6 Plt Count 243 MPV 10.0 Absolute Nucleated RBC 0.000 Nucleated RBC % (auto) 0.0 Anion Gap Cancelled Estim Creat Clear Calc Cancelled Estimated GFR Cancelled POC Glucose 118 H Random Glucose Cancelled Calcium Cancelled Magnesium Cancelled Assessment and Plan (1) Acute metabolic encephalopathy: Status: Acute Plan 68M PMH htn, CVA, hld, dm, bph presented with lethargy Sepsis, acute metabolic encephalopathy due to bacterial Gastroeneteritis complicated by hypovolemia and hypotension from diarrhea GI panel positive for camplobacter and EAEC continue rocephin, flagyl remove rectal tube today Acute hypoxic respiratory failure resolved now on room air Acute hypokalemia and hypomagnesemia due to diarrhea replete LENA with acute metabolic acidosis due to diarrhea improving history of cva asa, statin DVT prophylaxis - lovenox attending Dr. Liriano full code reason for continued hospitalization:still with severe diarrhea requiring close electrolyte monitoring and rectal tube Quality Stroke Does the patient have a stroke diagnosis?: No VTE Prior VTE?: No VTE Risk Level:: Medical - moderate - high VTE Device Contraindication: Treatment Not Indicated VTE Drug Contraindication: N/A - Med Ordered
--- NOTE | 2024-03-06 09:12 | PC.NURSE ---
Order to remove rectal tube received. Lye Machine Operator called in and patient educated/informed that the rectal tube will removed, patient is in agreement. Patient was position on his left side, 45cc of water removed and tube removed without difficulties, patient tolerated procedure well, rectal area cleaned with wet wipe, skin intact no irritation or redness noticed. Tube placed in red biohazard bag and discarded in the red biohazard bin in dirty utility room.
[2024-03-06 09:16] LABS: Anion Gap 13 (12-20); Blood Urea Nitrogen 29 mg/dL (9-16); Calcium 9.3 mg/dL (8.4-10.2); Carbon Dioxide 26 mmol/L (22-29); Chloride 106 mmol/L (96-108); Creatinine Clr Calc Pharmacy 43.8; Estimated Glomerular Filt Rate 36; Glucose Fasting 123 mg/dL (60-99); Magnesium 1.9 mg/dL (1.6-2.6); Potassium 3.2 mmol/L (3.3-5.1); Sodium 142 mmol/L (135-145)
[2024-03-06 10:56] LABS: Glucose, Whole Blood 135 mg/dL (60-115)
[2024-03-06 11:27] VITALS: BP 174/90; PULSE 57; RESP 18; TEMP 36.3; O2SAT 95
--- NOTE | 2024-03-06 11:56 | MHC.CM.PN ---
EMR reviewed and per MD rounds, pt is not medically cleared for discharge due to ongoing management of pts diarrhea, and pending PT eval.
[2024-03-06] MEDS: Acetaminophen 325 MG TABLET 650 MG PO (12:57)
[2024-03-06] MEDS: 0.9 % Sodium Chloride 1,000 ML 100 ML IVCONT ×2 (12:58→23:37)
[2024-03-06] MEDS: cefTRIAXone sodium 1 GM in 0.9 % Sodium Chloride 50 ML IV (12:58)
--- NOTE | 2024-03-06 15:22 | PC.NURSE ---
0ml urine output reported by BUSINESS EDUCATION TEACHER, bladder scan noted 841ml patient asymptomatic. Provider notified, telephone order for straight cath received. Patient was educated / informed of the procedure and gave permission to cath. Catheter inserted with minimal resistance at the tip of the penis, no resistance met past the tip. 700ml of dark yellow urine drained. Catheter removed, patient tolerated procedure well.
[2024-03-06 16:00] VITALS: BP 140/68; PULSE 51; RESP 20; TEMP 36.4; O2SAT 95
[2024-03-06 16:08] LABS: Glucose, Whole Blood 140 mg/dL (60-115)
[2024-03-06 19:28] VITALS: BP 135/63; PULSE 76; RESP 23; TEMP 36.1; O2SAT 95
[2024-03-06 19:48] LABS: Glucose, Whole Blood 168 mg/dL (60-115)
[2024-03-06] MEDS: Insulin Lispro 100 UNIT/ML 3 ML VIAL SUBCUT (20:04)
[2024-03-07] VITALS (8 sets, daily range): BP systolic 133–162; BP diastolic 60–86; PULSE 57–65; RESP 18–20; TEMP 36.2–37; O2SAT 90–97
[2024-03-07] MEDS: metroNIDAZOLE 500 MG TABLET PO ×3 (05:35→20:53)
[2024-03-07 07:20] LABS: Glucose, Whole Blood 130 mg/dL (60-115)
[2024-03-07] MEDS: 0.9 % Sodium Chloride Flush 3 ML SYRINGE IVFLUSH ×3 (09:57→20:58)
[2024-03-07] MEDS: Enoxaparin Sodium 30 MG/0.3 ML SYRINGE SUBCUT (09:57)
[2024-03-07] MEDS: amLODIPine Besylate 5 MG TABLET PO (09:58)
[2024-03-07 10:51] LABS: Anion Gap 12 (12-20); Blood Urea Nitrogen 27 mg/dL (9-16); Calcium 9.2 mg/dL (8.4-10.2); Carbon Dioxide 25 mmol/L (22-29); Chloride 108 mmol/L (96-108); Creatinine Clr Calc Pharmacy 51.3; Estimated Glomerular Filt Rate 43; Glucose Random 237 mg/dL (60-115); Potassium 3.1 mmol/L (3.3-5.1); Sodium 142 mmol/L (135-145)
[2024-03-07 11:09] LABS: Glucose, Whole Blood 215 mg/dL (60-115)
--- NOTE | 2024-03-07 11:31 | P.PNIM_ITS ---
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 Physical Exam 2 Vital Signs: Vital Signs: Last Vital Signs Temp 97.3 F 03/07/24 11:26 Pulse 62 03/07/24 11:26 Resp 20 03/07/24 11:26 BP 157/80 H 03/07/24 11:26 Pulse Ox 92 03/07/24 11:26 O2 Del Method Room Air 03/07/24 11:26 O2 Flow Rate 2 03/04/24 15:17 Oxygen Flow Rate 2 03/01/24 21:32 BMI result Body Mass Index 35.0 Appearing in no acute distress lung sounds are clear to auscultation heart regular rate rhythm, clear S1, S2 positive bowel sounds, abdomen is soft, nontender neuro patient is alert x3, no focal deficits Objective Data Active Medications Acetaminophen (Acetaminophen 325 Mg Tablet) 650 mg PO Q6H PRN PRN Reason: Pain, Mild (Pain Scale 1-3), fever or headache Last Admin: 03/06/24 12:57 Dose: 650 mg Documented By: ABBIE Amlodipine Besylate (Amlodipine Besylate 5 Mg Tablet) 5 mg PO DAILY [facility]; Protocol Last Admin: 03/07/24 09:58 Dose: 5 mg Documented By: MARCO Calcium Carbonate (Calcium Carbonate 750 Mg Tab.Chew) 750 mg PO Q4H PRN PRN Reason: Heartburn Last Admin: 03/04/24 22:55 Dose: 750 mg Documented By: DAVID Enoxaparin Sodium (Enoxaparin Sodium 30 Mg/0.3 Ml Syringe) 30 mg SUBCUT Q24H [facility] Last Admin: 03/07/24 09:57 Dose: 30 mg Documented By: MARCO Glucose (Glucose Gel 15 Gm Gel..Gram.) 15 gm PO Q15M PRN; Protocol PRN Reason: per Hypoglycemia Standing Ord. Dextrose (D10) 250 mls @ 750 mls/hr IV Q15M PRN; Protocol PRN Reason: per Hypoglycemia Standing Ord. Ceftriaxone Sodium 1 gm/ (Sodium Chloride) 50 mls @ 100 mls/hr IV Q24H [facility] Last Infusion: 03/06/24 14:22 Dose: Infused Documented By: ABBIE Insulin Human Lispro (Insulin Lispro 100 Unit/Ml 3 Ml Vial) 0 unit SUBCUT QIDACHS [facility]; Protocol Last Admin: 03/07/24 07:27 Dose: Not Given Documented By: MARCO Non-Admin Reason: No Insulin Coverage Magnesium Hydroxide (Milk Of Magnesia 30 Ml Oral.Susp) 30 ml PO DAILY PRN PRN Reason: Constipation Melatonin (Melatonin 3 Mg Tablet) 6 mg PO BEDTIME PRN PRN Reason: Insomnia Metronidazole (Metronidazole 500 Mg Tablet) 500 mg PO Q8H [facility] Last Admin: 03/07/24 05:35 Dose: 500 mg Documented By: DAVID Ondansetron HCl (Ondansetron Hcl 4 Mg/2 Ml Vial) 4 mg IVPUSH Q8H PRN PRN Reason: Nausea and Vomiting Last Admin: 03/03/24 20:41 Dose: 4 mg Documented By: PANCHO Sodium Chloride (0.9 % Sodium Chloride Flush 3 Ml Syringe) 3 ml IVFLUSH QSTNFT [facility] Last Admin: 03/07/24 09:57 Dose: 3 ml Documented By: MARCO Labs 03/06/24 07:44 03/07/24 10:07 Labs: Laboratory Results - last 24 hr 03/06/24 03/06/24 03/07/24 15:55 19:44 07:13 Anion Gap Estim Creat Clear Calc Estimated GFR POC Glucose 140 H 168 H 130 H Random Glucose Calcium 03/07/24 03/07/24 10:07 11:04 Anion Gap 12 Estim Creat Clear Calc 51.3 Estimated GFR 43 POC Glucose 215 H Random Glucose 237 H Calcium 9.2 Microbiology Microbiology Results: Microbiology 03/01/24 21:42 Blood Culture - Final Blood - Venous No growth after 5 days. 03/01/24 21:42 Blood Culture - Final Blood - Venous No growth after 5 days. Assessment and Plan (1) Acute metabolic encephalopathy: Status: Acute Plan 68M PMH htn, CVA, hld, dm, bph presented with lethargy Sepsis, acute metabolic encephalopathy due to bacterial Gastroeneteritis from Campylobacter complicated by hypovolemia and hypotension from diarrhea Sepsis resolved GI panel positive for camplobacter and EAEC continue rocephin, flagyl s/p rectal tube, diarrhea has resolved Acute hypoxic respiratory failure. Resolved now on room air Acute hypokalemia and hypomagnesemia due to diarrhea replete LENA with acute metabolic acidosis due to diarrhea Creatinine trending down history of cva asa, statin DVT prophylaxis - lovenox attending Dr. Liriano full code Disposition. Physical therapy consultation reason for continued hospitalization: Monitoring of electrolytes after being treated for diarrhea secondary to Campylobacter Quality Stroke Does the patient have a stroke diagnosis?: No VTE Prior VTE?: No VTE Risk Level:: Medical - moderate - high VTE Device Contraindication: Treatment Not Indicated VTE Drug Contraindication: N/A - Med Ordered
[2024-03-07] MEDS: cefTRIAXone sodium 1 GM in 0.9 % Sodium Chloride 50 ML IV (11:41)
[2024-03-07] MEDS: Potassium Chloride ER 20 MEQ TAB.ER.PRT 40 MEQ PO (11:41)
[2024-03-07] MEDS: Insulin Lispro 100 UNIT/ML 3 ML VIAL SUBCUT ×3 (11:41→20:54)
[2024-03-07 15:26] LABS: Glucose, Whole Blood 151 mg/dL (60-115)
[2024-03-07 20:31] LABS: Glucose, Whole Blood 182 mg/dL (60-115)
[2024-03-07] MEDS: Melatonin 3 MG TABLET 6 MG PO (20:53)
[2024-03-08] MEDS: metroNIDAZOLE 500 MG TABLET PO ×2 (06:00→12:28)
[2024-03-08 08:00] VITALS: BP 159/80; PULSE 68; RESP 20; TEMP 36.8; O2SAT 92
[2024-03-08 08:02] LABS: Glucose, Whole Blood 132 mg/dL (60-115)
[2024-03-08 08:42] VITALS: BP 159/80
[2024-03-08] MEDS: amLODIPine Besylate 5 MG TABLET PO (08:42)
[2024-03-08] MEDS: Enoxaparin Sodium 30 MG/0.3 ML SYRINGE SUBCUT (08:42)
[2024-03-08] MEDS: 0.9 % Sodium Chloride Flush 3 ML SYRINGE IVFLUSH (08:42)
[2024-03-08 08:46] LABS: Hematocrit 41.4 % (42.0-52.0); Hemoglobin 14.2 g/dl (14.0-18.0); Mean Corpuscular HGB Conc 34.3 g/dl (31.0-36.0); Mean Corpuscular Hemoglobin 29.6 pg (27.0-33.0); Mean Corpuscular Volume 86.4 fL (80.0-98.0); Mean Platelet Volume 9.3 fL (9.4-12.4); Platelet Count 286 X10*3/uL (160-400); Red Blood Count 4.79 X10*6/uL (4.60-5.80); Red Cell Distribution Width 12.8 % (11.0-16.0); White Blood Count 12.3 X10*3/uL (4.8-10.8)
[2024-03-08 09:00] LABS: Anion Gap 13 (12-20); Blood Urea Nitrogen 19 mg/dL (9-16); Calcium 8.8 mg/dL (8.4-10.2); Carbon Dioxide 25 mmol/L (22-29); Chloride 109 mmol/L (96-108); Creatinine Clr Calc Pharmacy 79.2; Estimated Glomerular Filt Rate > 60; Glucose Random 143 mg/dL (60-115); Potassium 3.5 mmol/L (3.3-5.1); Sodium 143 mmol/L (135-145)
[2024-03-08 11:42] LABS: Glucose, Whole Blood 177 mg/dL (60-115)
[2024-03-08] MEDS: cefTRIAXone sodium 1 GM in 0.9 % Sodium Chloride 50 ML IV (12:28)
[2024-03-08] MEDS: Insulin Lispro 100 UNIT/ML 3 ML VIAL SUBCUT (12:28)
--- NOTE | 2024-03-08 12:41 | W.MHC.F2F ---
Service Date Service Date: 03/08/24 Encounter Date of encounter: 03/08/24 Reasons for Services Signs and symptoms assessed: GI symptoms -- pain, diarrhea, oral intake BP monitoring Reason for assisted: medication treatment and GI/ assessment MD Overseeing Care: Ga Guthrie Homebound: Leaving the home is medically contraindicated at this time without the asist of a device and/or another person due th the listed conditions above and below. Reason homebound: cognitively impaired / unsafe Certification: Based on the above findings, I certify that this patient is confined to the home and needs intermittent assisted care, physical therapy and/or speech therapy, or continues to need occupational therapy. The patient is under my care, and I have initiated the establishment of the plan of care. The patient will be followed by a physician who will periodically review the plan of care. Time Spent With Patient Time: Total time managing care of this patient today ____ minutes.
--- NOTE | 2024-03-08 12:43 | PM.DS ---
DS: Providers Provider Date of Service: 03/08/24 Date of admission: 03/02/24 02:25 Primary care physician: Unknown Physician Consults: 03/02/24 11:16 Consult to Critical Care Routine Consulting Provider: David Bernal Reason for consultation: hyotension, diarrhea 03/07/24 11:32 Consult to Infectious Diseases Routine Consulting Provider: [facility] Reason for consultation: Campylobacter DS: Diagnosis Discharge Diagnosis (1) Acute metabolic encephalopathy: Status: Acute (2) Acute kidney injury: Status: Acute (3) Sepsis: Status: Acute (4) Acute respiratory failure with hypoxia: Status: Acute DS: Summary Hospital Course Hospital Course: HPI: This is a 68-year-old male with pertinent history of hypertension, history of CVA, mixed hyperlipidemia, gig-nrrxswx-gcsryjxku diabetes mellitus, BPH who was brought to the emergency department feeling of unwell. Patient is extremely drowsy at the time of my presentation. Unable to provide history. History obtained with the help of ER provider and chart review. Patient is [place]ine[place] speaking and history obtained with the help of design specialist. Patient has been having multiple episodes of nausea with nonbloody emesis and nonbloody diarrhea for the last 2-3 days. No sick family members. In the emergency department, patient was found to be tachycardic with tachypnea and 22% band cells. Patient was requiring 2 L supplemental oxygen in the ER. Imaging without acute abnormality. Patient was resuscitated with IV crystalloids and initiated on empiric IV antibiotics. Unable to obtain review of systems. Hospital Course: The patient presented with signs and symptoms of sepsis due to a gastrointestinal source. The patient was treated with intravenous fluids and IV antibiotics. His stool studies returned positive for EAEC and Campylobacter. He was treated with IV ceftriaxone and Flagyl while in the hospital and has completed a course of antibiotics. His diarrhea has resolved. Patient also had resultant acute kidney injury for which he was treated with intravenous fluids. His metformin and lisinopril were held, however his renal function has now normalized and will be resumed at the time of discharge. The patient also had acute respiratory failure with hypoxia which was deemed likely secondary to sepsis. This has now resolved and he is tolerating room air. Patient has encephalopathy was due to toxic/metabolic encephalopathy and sepsis and now has resolved. Time Attestation Discharge Coordination Time (in mins): 45 Quality: Safe Use of Opioids Does Pt have an Active Cancer Diagnosis on the Problem List?: No Quality: Stroke Does the patient have a stroke diagnosis?: No Physical Exam Vital Signs: Vital Signs: Last Vital Signs Temp 98.2 F 03/08/24 08:00 Pulse 68 03/08/24 08:00 Resp 20 03/08/24 08:00 BP 159/80 H 03/08/24 08:42 Pulse Ox 92 03/08/24 08:00 O2 Del Method Room Air 03/08/24 08:00 O2 Flow Rate 2 03/04/24 15:17 Oxygen Flow Rate 2 03/01/24 21:32 BMI result Body Mass Index 35.0 DS: Data Data Completed and Pending Labs on day of discharge: Laboratory Results - last 24 hr 03/07/24 03/07/24 03/08/24 15:09 20:26 07:15 WBC RBC Hgb Hct MCV MCH MCHC RDW Plt Count MPV Absolute Nucleated RBC Nucleated RBC % (auto) Sodium Potassium Chloride Carbon Dioxide Anion Gap BUN Creatinine Estim Creat Clear Calc Estimated GFR POC Glucose 151 H 182 H 132 H Random Glucose Calcium 03/08/24 03/08/24 08:39 11:15 WBC 12.3 H RBC 4.79 Hgb 14.2 Hct 41.4 L MCV 86.4 MCH 29.6 MCHC 34.3 RDW 12.8 Plt Count 286 MPV 9.3 L Absolute Nucleated RBC 0.000 Nucleated RBC % (auto) 0.0 Sodium 143 Potassium 3.5 Chloride 109 H Carbon Dioxide 25 Anion Gap 13 BUN 19 H Creatinine 1.03 Estim Creat Clear Calc 79.2 Estimated GFR > 60 POC Glucose 177 H Random Glucose 143 H Calcium 8.8 Discharge Plan Discharge Anticipated Discharge Date/Time: 03/08/24 12:31 Patient Disposition: Home Health Service Discharge Diagnosis: Diarrhea due to E. coli and Campylobacter infection Referrals: [facility] [Outside] - 1 Week Physician,Sai J [Primary Care Provider] - 1 Week Discharge Medications: Continued aspirin 81 mg tablet,delayed release (DR/EC) 81 mg PO DAILY Qty: 90 3RF atorvastatin 80 mg tablet 80 mg PO DAILY Qty: 90 0RF ferrous sulfate 325 mg (65 mg iron) tablet 325 mg PO DAILY Qty: 90 0RF lisinopril 10 mg tablet 10 mg PO DAILY Qty: 30 1RF metformin 500 mg tablet 500 mg PO DAILY 30 Days Qty: 30 0RF cyanocobalamin (vitamin B-12) 1,000 mcg capsule 1,000 mcg PO DAILY (DME) Underpads Regular Pad See Rx Instructions .Route Qty: 120 3RF Rx Instructions: Twice daily As directed, 60 days (DME) blood pressure test kit-large Kit See Rx Instructions .Route Qty: 1 0RF Rx Instructions: As directed (DME) lancets [FreeStyle Lancets] 28 gauge misc See Rx Instructions .ROUTE .MEDSUPPLY Qty: 100 3RF Rx Instructions: As directed check BS QD (DME) FreeStyle Lite Strips Strip See Rx Instructions .ROUTE .MEDSUPPLY Qty: 100 3RF Rx Instructions: As directed check the BS QD (DME) blood-glucose meter [FreeStyle Lite Meter] Kit See Rx Instructions .ROUTE .MEDSUPPLY Qty: 1 0RF Rx Instructions: As directed (DME) PULL UPS LARGE MENS See Rx Instructions .Route .MEDSUPPLY Qty: 100 11RF Rx Instructions: As directed Discharge Orders: Discharge Order (Routine); Ordered 03/08/24 Ordered By: Byron Liriano Diet: Advance to usual diet Activity on Discharge: As tolerated Stand Alone Forms: Patient Portal Discharge page Print Language: Wolof Care Plan Goals: You have completed treatment for your diarrhea You can resume you usual medications like you normally do We will arrange for VNA services to check in your blood pressure and GI symptoms. Health Concerns: See above Plan of Treatment: See above Assessment: see d/c summary
--- NOTE | 2024-03-08 13:07 | MHC.CM.PN ---
Second IMM 03/08. Pt is medically cleared for discharge home with resumption of [employer] services and new [facility] services. Pts son Toño will transport him home.
== END 2024-03-08 13:47 | disposition home health service (06) | DRG 871 ==
LOC: HO.ED 03-02 → HO.EDOVER 03-02 02:31 → HO.IMC 03-02 16:36
PROVIDERS: Internal Medicine; Nurse Practitioner Acute Care; Admitting Provider Student in an Organized Health Care Education/Training Program; Emergency Provider Internal Medicine; PCP Internal Medicine; Visit Provider Family Medicine
DX: A41.9 Sepsis, unspecified organism (principal); G93.41 Metabolic encephalopathy; J96.01 Acute respiratory failure with hypoxia; A04.5 Campylobacter enteritis; A04.4 Other intestinal Escherichia coli infections; N17.9 Acute kidney failure, unspecified; I95.9 Hypotension, unspecified; E87.21 Acute metabolic acidosis; E11.65 Type 2 diabetes mellitus with hyperglycemia; E83.42 Hypomagnesemia; E86.1 Hypovolemia; E78.2 Mixed hyperlipidemia; E87.6 Hypokalemia; Z20.822 Contact with and (suspected) exposure to COVID-19; Z86.73 Personal history of transient ischemic attack (TIA), and cerebral infarction without residual deficits; Z79.82 Long term (current) use of aspirin; Z79.84 Long term (current) use of oral hypoglycemic drugs; Z79.899 Other long term (current) drug therapy
CPT/HCPCS: 36415; 71045; 71250; 74176; 80048; 80053; 80076; 82947; 83605; 83690; 83735; 83880; 84100; 84484; 85007; 85025; 85027; 87040; 87493; 87507; 87635; 93005; 97161; 99285; J0696; J1650; J1836; J1885; J2405; J2543; J3475; J3480; J7120; P9047

== ENCOUNTER → 2024-03-01 21:34 | Outpatient (BNV) | payer MEDICARE, MEDICAID, SELFPAY | PROVIDERS: Admitting Provider Student in an Organized Health Care Education/Training Program; Emergency Provider Internal Medicine; Visit Provider Internal Medicine | DX: R94.31 Abnormal electrocardiogram [ECG] [EKG] (principal) | CPT/HCPCS: 93010 ==

== ENCOUNTER → 2024-03-02 02:25 | Outpatient (BNV) | payer MEDICARE, MEDICAID, SELFPAY | PROVIDERS: Admitting Provider Student in an Organized Health Care Education/Training Program; Emergency Provider Internal Medicine; Visit Provider Student in an Organized Health Care Education/Training Program | DX: A41.9 Sepsis, unspecified organism (principal); J96.01 Acute respiratory failure with hypoxia; G93.41 Metabolic encephalopathy | CPT/HCPCS: 99223; 99232; 99233; 99239; 99499; G0180 ==

== ENCOUNTER → 2024-03-02 02:25 | Outpatient (BNV) | payer MEDICARE, MEDICAID, SELFPAY | PROVIDERS: Admitting Provider Student in an Organized Health Care Education/Training Program; Emergency Provider Internal Medicine; Visit Provider Internal Medicine Pulmonary Disease | DX: E86.1 Hypovolemia (principal); R19.7 Diarrhea, unspecified; N17.9 Acute kidney failure, unspecified | CPT/HCPCS: 99222 ==

== ENCOUNTER 2024-03-21 13:02 | Outpatient (AMB) | payer MEDICARE, MEDICAID, SELFPAY ==
[2024-03-21 13:03] VITALS: BP 112/64; PULSE 79; O2SAT 98; BMI 35.1
--- NOTE | 2024-03-21 13:03 | A.OFFPC_ITS ---
Vital Signs 03/21/24 13:03 Height 5 ft 8 in Weight 231 lb 0.2 oz BMI 35.1 BP 112/64 Blood Pressure Location Lt brachial Position Sitting Pulse 79 Pulse Source Pulse Oximeter Pulse Oximetry (%) 98 Oxygen Delivery Method Room Air Intake [place] [facility] Intake Note: Patient is here for hospital discharge follow up. Patient was [place] [facility] [place]. Chief Deputy Clerk/Bailiff Required: No Allergies No Known Allergies [No Known Allergies*] Allergy (Verified 03/21/24 13:04) Medication List - Last Reconciled 03/21/24 by Zora Bal PA-C aspirin 81 mg PO DAILY atorvastatin 80 mg PO DAILY blood pressure test kit-large As directed blood sugar diagnostic (FreeStyle Lite Strips) As directed check the BS QD blood-glucose meter (FreeStyle Lite Meter kit) As directed cyanocobalamin (vitamin B-12) 1,000 mcg PO DAILY ferrous sulfate 325 mg PO DAILY incontinence pad, liner, disp (Underpads Regular) Twice daily As directed, 60 days lancets (FreeStyle Lancets) As directed check BS QD lisinopril 10 mg PO DAILY metformin 500 mg PO DAILY 30 days [PULL UPS LARGE MENS As directed] Tobacco use date assessed: 11/27/23 Fall risk assessment: No Falls in past year Last assessed Fall Risk: 03/21/24 Dental Screening Dental Screen Date: 01/31/24 HPI [facility] [place] HPI Details 68-year-old obese male with diabetes juan miguel litus, history of CVA, hypercholesterolemia, BPH, and hypertension last seen in 01/[address] Guthrie coming in for follow up.? Review of the notes patient was seen in [facility] [place] for nausea, diarrhea, and vomiting was found to have LENA and hypoxia treated with IV antibiotics and IV fluids and admitted as inpatient. Imaging was without acute abnormality. His stool studies returned positive for EAEC and Campylobacter.? He was treated with IV ceftriaxone and Flagyl while in the hospital and has com pleted a course of antibiotics. Diarrhea resolved and patient was discharged on normal medications and given VNA services.? 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 MOTOR LODGE CLERK tells us he has been doing much better since being discharged from the hospital and diarrhea has mostly resolved. Has a follow up with Gastroenterology next month. She states his eating habits are the primary reason continues to have bowel issues. He has a long history of incontinence. She also mentions he has poor fluid intake and a poor diet and often eats foods or undercooked foods. She also mentions he has been experiencing more fatigue than usual since his discharge from the hospital. [facility] Medical History Hypertension Screening for colon cancer Acute CVA (cerebrovascular accident) Anemia Morbid (severe) obesity due to excess calories Arthritis Hyperlipidemia Surgical History Umbilical hernia (01/05/24) Pterygium Scrotal abscess Hx of excision of dermoid cyst Social History Household Members: Family Housing: Apartment Do you presently have visiting nurse or other home services: Yes (MOTOR LODGE CLERK) Unable to assess alcohol history related to: Unknown Alcohol intake: current Alcohol intake frequency: holidays/special occasions only Alcohol type: beer Patient Tobacco Use Status: Never used Tobacco e-Cigarette/Vaping Use: Never Used Second Hand Smoke Exposure: No service: No Current occupational status: disabled Current occupational exposures/hazards: No Cognitive needs: No Hearing needs: Yes Vision needs: Yes Questionnaire Thrive Questionnaire Date Thrive assessed: 03/03/24 AUDIT C Alcohol Use Questionnaire (AUDIT-C) 1. How often do you have a drink containing alcohol?: 2-3 times a week 2. How many drinks containing alcohol do you have on a typical day when you are drinking?: 1 or 2 3. How often do you have six or more drinks on one occasion?: Never Total Score: 3 DIANA-7 AMB Questionnaire DIANA-7 Date DIANA - 7 assessed: 11/27/23 Source: Developed by Drs. Nate Mcdowell, Annamaria Anthony, El Moy and colleagues, with an educational jessa from [employer]. Review of Systems Const Denies body aches, Denies chills, Denies fever(s), Denies headache(s) and Denies poor appetite Eyes Reports no additional complaints ENT Denies dysphagia, Denies dizziness, Denies headache(s) and Denies odynophagia Card Denies chest pain, Denies syncope, Denies edema and Denies dyspnea Resp Denies cough and Denies dyspnea GI Denies abdominal pain, Denies dysphagia, Reports diarrhea, Denies nausea, Denies odynophagia and Denies vomiting Reports no additional complaints Musc Reports no additional complaints and Denies abnormal gait Skin/Breast Reports system reviewed and no additional complaints, except as documented Neuro Denies abnormal gait, Denies dizziness, Denies syncope and Denies headache(s) Psych Reports no additional complaints Physical exam (Primary Care) Vital Signs: Last Vital Signs Pulse 79 03/21/24 13:03 BP 112/64 03/21/24 13:03 Pulse Ox 98 03/21/24 13:03 Oxygen Delivery Method Room Air 03/21/24 13:03 BMI result Body Mass Index 35.1 Tobacco/Smoking Status: Tobacco use Status Tobacco use date assessed 11/27/23 03/21/24 13:06 Patient Tobacco Use Status Never used Tobacco 03/21/24 13:06 e-Cigarette/Vaping Use Never Used 03/21/24 13:06 Thrive Assessment: Date of Thrive Assessment Date Thrive assessed 03/03/24 03/21/24 13:06 Const General: cooperative, healthy appearing, comfortable and no acute distress Orientation/consciousness: patient oriented x3 HENMT Head: Yes normocephalic Ears: hearing grossly normal bilaterally General nose exam: Normal external nose present Eyes General: appearance normal, both eyes and all related structures Conjunctivae: conjunctivae normal Neck Neck: Yes full ROM and Yes no lymphadenopathy Resp Effort & Inspection: normal respiratory effort Auscultation: clear to auscultation bilaterally, no crackles, no rales, no rhonchi and no wheezes Cardio Rate: regular rate Rhythm: regular rhythm GI Inspection: Yes normal to inspection Palpation (GI): Soft to palpation, not firm, nontender, no guarding, not rigid and No Rebound tenderness present Skin General skin exam: no rashes or lesions noted Neuro General: patient oriented x3 Gait exam (Neuro): Normal gait present Extrem General: Yes normal to inspection, Yes full ROM and No edema Psych Affect: normal affect Attitude: cooperative Insight: Good insight present (Psych) Judgement: Good judgement present (Psych) Assessment and Plan Assessment & Plan (1) B12 deficiency: Code(s): E53.8 - Deficiency of other specified B group vitamins Plan: Patient has a history of B12 deficiency and was on oral B12 with no response. Per MOTOR LODGE CLERK injections of B12 were supposed to be sent to the pharmacy and were ne carrie ordered. B12 injections ordered at this time (2) Acute diarrhea: Code(s): R19.7 - Diarrhea, unspecified Plan: Diarrhea has mostly resolved at this point. Patient has stopped completed course of antibiotics and was considered stable after discharge. Encouraged to increase water intake. If patient begins to have large amounts of diarrhea and/or abdominal pain and continues with poor fluid intake he should present to the ER for IV fluids and evaluation. Encouraged healthier eating habits. Plan This note was constructed using voice recognition software. While every effort has been made to ensure accuracy and skiver welt end, still areas may have been included sometimes these areas may affect the content or meeting of the given symptoms. Total time spent caring for the patient today was 30 minutes. This includes time spent before the visit reviewing the chart, time spent during the visit, and time spent after the visit and documentation. Medications: New [Shower chair] As directed 1 ea 0RF [incontinence bed pads] As directed 30 ea 2RF [walking cane] As directed 1 ea 0RF [Raised toilet seat] As directed 1 ea 0RF Coding Level of Care Code Est Pt Level 4 (78320) Diagnoses B12 deficiency E53.8 Acute diarrhea R19.7
== END 2024-03-21 13:31 | disposition home or self-care (01) ==
DX: E53.8 Deficiency of other specified B group vitamins (principal); R19.7 Diarrhea, unspecified
CPT/HCPCS: 99214

== ENCOUNTER 2024-10-09 10:57 | Outpatient (AMB) | payer MEDICARE, MEDICAID, SELFPAY ==
[2024-10-09 11:14] VITALS: BP 148/90; PULSE 81; O2SAT 94; BMI 40.6
--- NOTE | 2024-10-09 11:14 | A.OFFPC_ITS ---
Vital Signs 10/09/24 11:14 10/09/24 11:30 Height 5 ft 8 in Weight 267 lb BMI 40.6 BP 148/90 H 134/80 Blood Pressure Location Lt brachial Lt brachial Position Sitting Sitting Pulse 81 Pulse Source Pulse Oximeter Pulse Oximetry (%) 94 Oxygen Delivery Method Room Air Intake Visit Reasons: DM Scout Executive Required: Yes Scout Executive Language: Nigerian Allergies No Known Allergies [No Known Allergies*] Allergy (Verified 10/09/24 11:14) Tobacco use date assessed: 10/09/24 Fall risk assessment: No Falls in past year Last assessed Fall Risk: 10/09/24 Dental Screening Dental Screen Date: 10/09/24 Did you have a dental visit in the last 12 months?: Yes Did you have a dental problem in the last 6 months where you did not have access to dental care?: No Was dental information given to patient?: Patient has dentist HPI DM HPI Details kyle mejia and surgical services coordinator interpret for me. noted 36 lbs weight gain The patient is a 68-year-old male presenting with a complex medical history for a follow-up visit. He has a history of diabetes mellitus, with the last recorded hemoglobin A1c of 6.55% in January 2024, managed with metformin 500 mg daily. Hypercholesterolemia is another concern, with his cholesterol levels last documented in October 2023. Despite being on atorvastatin 80 mg once daily, his bad cholesterol levels have fluctuated, with a recent reading of 233, considerably higher than the target of below 130. The patient also manages hypertension with lisinopril 10 mg and monastaspine daily. A cerebrovascular accident occurred in September 2022, with no recent complications mentioned. He has a history of benign prostatic hyperplasia and obesity, which are managed through lifestyle modifications and medical interventions. His renal function is stable, with no anemia and normal platelet counts as of February 2024. Visits have included consistent monitoring of these chronic conditions and assessments of his progressed disease states. 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 1. Little interest or pleasure in doing things: not at all 2. Feeling down, depressed, or hopeless: not at all 3. Trouble falling or staying asleep, or sleeping too much: not at all 4. Feeling tired or having little energy: not at all 5. Poor appetite or overeating: not at all 6. Feeling bad about yourself - or that you are a failure or have let yourself or your family down: not at all 7. Trouble concentrating on things, such as reading the newspaper or watching television: not at all 8. Moving or speaking so slowly that other people could have noticed. Or the opposite - being so fidgety or restless that you have been moving around a lot more than usual: not at all 9. Thoughts that you would be better off or of hurting yourself in some way: not at all Total score: 0 Depression Screening Interpretation: Negative Depression Screening Done: Yes Source: Developed by Drs. Nate Mcdowell, Annamaria Anthony, El Moy and colleagues, with an educational jessa from [employer]. Thrive Questionnaire Date Thrive assessed: 10/09/24 I am a: Patient What is your living situation today?: I have a steady place to live Within the past 12 months, did the food you bought not last and you didn't have the money to get more?: Never true Within the past 12 months, did you worry whether your food would run out before you got money to buy more?: Never true Do you have trouble paying for medicines?: No Do you have trouble getting transportation to medical appointments?: No Do you have trouble paying your heating and electricity bill?: No Do you have trouble taking care of your child, family member or friend?: No Do you have trouble with day-to-day activities such as bathing, preparing meals, shopping, managing finances, etc.?: No Are you currently unemployed and looking for a job?: No Are you interested in more education?: No Currently or been in a relationship where the following occur: No concerns reported THRIVE Score: 0 AUDIT C Alcohol Use Questionnaire (AUDIT-C) 1. How often do you have a drink containing alcohol?: 2-3 times a week 2. How many drinks containing alcohol do you have on a typical day when you are drinking?: 1 or 2 3. How often do you have six or more drinks on one occasion?: Never Total Score: 3 DIANA-7 AMB Questionnaire DIANA-7 Date DIANA - 7 assessed: 10/09/24 Feeling nervous, anxious, or on edge: 0 = Not at all Not being able to stop or control worryin = Not at all Worrying too much about different things: 0 = Not at all Trouble relaxin = Not at all Being so restless that it is hard to sit still: 0 = Not at all Becoming easily annoyed or irritable: 0 = Not at all Feeling afraid as if something awful might happen: 0 = Not at all Total DIANA-7 score (0-4 normal; 5-9 mild; 10-14 moderate; 15-21 severe): 0 Source: Developed by Drs. Nate Mcdowell, Annamaria Anthony, El Moy and colleagues, with an educational jessa from [employer]. Physical exam (Primary Care) Vital Signs: Last Vital Signs Pulse 81 10/09/24 11:14 BP 134/80 10/09/24 11:30 Pulse Ox 94 10/09/24 11:14 Oxygen Delivery Method Room Air 10/09/24 11:14 BMI result Body Mass Index 40.6 Tobacco/Smoking Status: Tobacco use Status Tobacco use date assessed 10/09/24 10/09/24 11:18 Patient Tobacco Use Status Never used Tobacco 10/09/24 11:18 e-Cigarette/Vaping Use Never Used 10/09/24 11:18 PHQ-9: PHQ-9 Score PHQ-9: Total score 0 10/09/24 11:51 Depression Screening Interpretation: Negative Thrive Assessment: Date of Thrive Assessment Date Thrive assessed 10/09/24 10/09/24 11:18 Currently or been in a relationship where the following occur: No concerns reported Const General: alert; No acute distress Eyes Conjunctivae: conjunctivae normal Resp Auscultation: clear to auscultation bilaterally Cardio Rate: regular rate Rhythm: regular rhythm GI Inspection: Yes normal to inspection Extrem General: Yes normal to inspection and No edema Office Procedures Flu Questionnaire Does the patient have a severe egg allergy?: No Does the patient have severe life threatening allergies?: No Does the patient have a fever or illness today?: No Has the patient ever had Guillain-Waddington Syndrome?: No Has the patient ever had any past reaction to a flu shot?: No Results AMB Hemoglobin A1c AMB Hemoglobin A1c 7.6 % Last Edit by Judit Iyer CMA on 10/09/24 11 :42 Immunizations Fluarix Triv [id number] (PF) 45 mcg (15 mcg x 3)/0.5 mL IM syringe Performing Provider: Ga Guthrie MD [facility] Administered by: Judit Iyer CMA on 10/09/24 11:51 Dose Route Admin Location Dispensed Lot Number Expiration Date [facility] [place] Community Development Coordinator 0.5 mL IM Left Deltoid 0.5 mL [id number] 02/24/25 [id number] [employer] VIS Given Date VIS Provided VIS Publication Date 10/09/24 Single Vaccine 21 Eligibility Eligibility Date Funding Source Not [facility] Eligible 10/09/24 Private Results Reviewed Results Reviewed: Laboratory Last Values Hgb A1c (Clinic) 7.6 % (4.0-6.0) H 10/09/24 11:41 Coding Level of Care Code Est Pt Level 4 (12841) Complex EM visit Add On G2211 Diagnoses Type 2 diabetes mellitus with hyperglycemia E11.65 Hyperlipidemia E78.5 Obesity E66.9 Hypertension I10 History of CVA (cerebrovascular accident) Z86.73 BPH (benign prostatic hyperplasia) N40.0 Cognitive impairment R41.89 Learning disability F81.9 Assessment & Plan Assessment & Plan (1) Type 2 diabetes mellitus with hyperglycemia: Comment: Dr. Roche Code(s): E11.65 - Type 2 diabetes mellitus with hyperglycemia Category: Medical Plan: Decrease the amount of carbohydrate intake, pasta, bread, rice and potatoes are all sugar and that is aside from all the sweet stuff, remember that fruits are good but they are Sweet also. Hemoglobin A1c goal of less than 7.0. Patient is on metformin 500 mg once a day. Had a lengthy discussion with the patient and niece regarding the need to get all of this under control diabetes hypertension hypercholesterolemia and weight. But the hard part is regarding patient's understanding of getting this under better control discussed to them about complications of this discussed to them about the problem of having an uncontrolled diabetes. Adjustment of metformin done. (2) Hyperlipidemia: Code(s): E78.5 - Hyperlipidemia, unspecified Category: Medical Plan: Avoid fried foods, chicken skin, eggs, butter margarine, pastries and meat. Be it pork or beef they have a lot of cholesterol LDL goal of less than 70 and triglyceride of less than 150 patient is on atorvastatin 80 mg once a day (3) Obesity: Code(s): E66.9 - Obesity, unspecified Category: Medical Plan: Diet and exercise (4) Hypertension: Code(s): I10 - Essential (primary) hypertension Category: Medical Plan: Continue with blood pressure medication. Decrease salt intake and exercise patient is taking lisinopril 10 mg once a day. (5) History of CVA (cerebrovascular accident): Comment: September 2022 MRI revealing acute infarct of the anterior right insular of the right frontal lobe, left facial droop with slurred speech Code(s): Z86.73 - Personal history of transient ischemic attack (TIA), and cerebral infarction without residual deficits Category: Medical Plan: Continue on aspirin. Control the cholesterol, weight, blood pressure, diabetes (6) BPH (benign prostatic hyperplasia): Code(s): N40.0 - Benign prostatic hyperplasia without lower urinary tract symptoms Category: Medical Plan: Stable (7) Cognitive impairment: Code(s): R41.89 - Other symptoms and signs involving cognitive functions and awareness Category: Medical (8) Learning disability: Comment: niece states since chilhood . cognitive impairement Code(s): F81.9 - Developmental disorder of scholastic skills, unspecified Category: Social Hx Plan 1. 0: - For Hypercholesterolemia: Maintain atorvastatin 80 mg daily with lifestyle modifications to achieve a cholesterol goal of less than 70 and triglycerides of less than 150. - Hypertension: Continue antihypertensive therapy with lisinopril 10 mg once a day. - Follow-up in December 2024 with Gastroenterology as the previous appointment was rescheduled. - Ongoing monitoring and management of overall health status considering a comprehensive plan for chronic disease management and preventative care. Orders: Orders Complete Blood Count Auto Diff Today E11.65 - Type 2 diabetes mellitus with hyperglycemia Prostate Specific Antigen Scr Today E11.65 - Type 2 diabetes mellitus with hyperglycemia Lipid Panel Today E11.65 - Type 2 diabetes mellitus with hyperglycemia, E78.00 - Pure hypercholesterolemia, unspecified Creatinine Urine Today E11.65 - Type 2 diabetes mellitus with hyperglycemia AMB Hemoglobin A1c Today Z13.9 - Encounter for screening, unspecified Influenza [id number] Immunization Today Z23 - Encounter for immunization Comprehensive Met. Panel Today E11.65 - Type 2 diabetes mellitus with hyperglycemia Free T4 (Free Thyroxine) Today E11.65 - Type 2 diabetes mellitus with hyperglycemia Thyroid Stimulating Hormone Today E11.65 - Type 2 diabetes mellitus with hyperglycemia Vitamin B12 and Folate Today E11.65 - Type 2 diabetes mellitus with hyperglycemia Hemoglobin A1c Today E11.65 - Type 2 diabetes mellitus with hyperglycemia Microalbumin, Random (w Creat) Today E11.65 - Type 2 diabetes mellitus with hyperglycemia Medications: Changed From metformin 500 mg PO DAILY 30 days 90 tabs 0RF E11.65 - Type 2 diabetes mellitus with hyperglycemia To metformin 500 mg PO BIDWMEAL 60 tabs 11RF 30 days E11.65 - Type 2 diabetes mellitus with hyperglycemia
[2024-10-09 11:30] VITALS: BP 134/80
== END 2024-10-09 12:04 | disposition home or self-care (01) ==
PROVIDERS: PCP Internal Medicine; Visit Provider Internal Medicine
DX: E11.65 Type 2 diabetes mellitus with hyperglycemia (principal); E78.5 Hyperlipidemia, unspecified; E66.9 Obesity, unspecified; Z68.41 Body mass index [BMI] 40.0-44.9, adult; Z86.73 Personal history of transient ischemic attack (TIA), and cerebral infarction without residual deficits; I10 Essential (primary) hypertension; N40.0 Benign prostatic hyperplasia without lower urinary tract symptoms; R41.89 Other symptoms and signs involving cognitive functions and awareness; F81.9 Developmental disorder of scholastic skills, unspecified; Z13.9 Encounter for screening, unspecified; Z23 Encounter for immunization

== ENCOUNTER → 2024-10-09 10:57 | Outpatient (BNVA) | payer MEDICARE, MEDICAID, SELFPAY | PROVIDERS: PCP Internal Medicine; Visit Provider Internal Medicine | DX: Z23 Encounter for immunization (principal); E11.65 Type 2 diabetes mellitus with hyperglycemia; E78.5 Hyperlipidemia, unspecified; E66.9 Obesity, unspecified; I10 Essential (primary) hypertension; N40.0 Benign prostatic hyperplasia without lower urinary tract symptoms; R41.89 Other symptoms and signs involving cognitive functions and awareness; F81.9 Developmental disorder of scholastic skills, unspecified; Z86.73 Personal history of transient ischemic attack (TIA), and cerebral infarction without residual deficits | CPT/HCPCS: 83036; 90471; 90656; 99212 ==

== ENCOUNTER 2024-11-15 10:45 | Outpatient (REF) | payer MEDICARE, MEDICAID, SELFPAY ==
[2024-11-15 13:20] LABS: MANUAL DIFF FLAG NO
[2024-11-15 13:38] LABS: Basophils Percent Auto 0.5 % (0-2); Eosinophils Absolute Auto 0.2 X10*3/uL (0.0-0.4); Eosinophils Percent Auto 2.2 % (0-4); Hematocrit 45.7 % (42.0-52.0); Hemoglobin 15.1 g/dl (14.0-18.0); Imm Gran Abs Auto 0.03 X10*3/uL (0.00-0.03); Imm Gran Pct Auto 0.4 % (0.0-0.4); Lymphocytes Absolute Auto 1.3 X10*3/uL (1.2-4.9); Lymphocytes Percent Auto 17.1 % (20-40); Mean Corpuscular Hemoglobin 29.6 pg (27.0-33.0); Mean Corpuscular Volume 89.6 fL (80.0-98.0); Mean Platelet Volume 10.2 fL (9.4-12.4); Monocytes Absolute Auto 0.5 X10*3/uL (0.1-1.2); Neutrophils Absolute Auto 5.4 x10*3/uL (2.0-8.3); Neutrophils Percent Auto 72.8 % (45-73); Platelet Count 257 X10*3/uL (160-400); Red Cell Distribution Width 12.8 % (11.0-16.0); White Blood Count 7.4 X10*3/uL (4.8-10.8)
[2024-11-15 13:48] LABS: Estimated Average Glucose 180 mg/dL; Hemoglobin A1c % 7.9 % (<6.0)
[2024-11-15 14:14] LABS: Folate 16.2 ng/mL (> or = 4.0); Vitamin B12 276 pg/mL (200-900)
[2024-11-15 14:24] LABS: Alanine Aminotransferase 29 U/L (0-40); Albumin Level 3.9 g/dL (3.5-5.0); Alkaline Phosphatase 122 U/L (39-117); Anion Gap 12 (12-20); Aspartate Amino Transferase 17 U/L (5-37); Bilirubin Total 1.1 mg/dL (0.0-1.0); Blood Urea Nitrogen 20 mg/dL (9-16); Calcium 9.2 mg/dL (8.4-10.2); Carbon Dioxide 27 mmol/L (22-29); Chloride 107 mmol/L (96-108); Cholesterol 168 mg/dL (<200); Estimated Glomerular Filt Rate > 60; Free T4 (Free Thyroxine) 0.98 ng/dL (0.71-1.85); Glucose Random 155 mg/dL (60-115); HDL Cholesterol 44 mg/dL (>40); LDL Cholesterol Calculated 86 mg/dL (<100); Potassium 4.4 mmol/L (3.3-5.1); Sodium 142 mmol/L (135-145); Thyroid Stimulating Hormone 1.82 uIU/mL (0.32-4.0); Total Protein 6.9 g/dL (6.5-8.0); Triglycerides 194 mg/dL (<150)
[2024-11-15 14:25] LABS: Creatinine Urine 153.79 mg/dL
== END 2024-11-15 10:46 | disposition home or self-care (01) ==
LOC: HO.10HDL 10:45
PROVIDERS: Visit Provider Internal Medicine
DX: E11.65 Type 2 diabetes mellitus with hyperglycemia (principal); E78.00 Pure hypercholesterolemia, unspecified; Z12.5 Encounter for screening for malignant neoplasm of prostate
CPT/HCPCS: 36415; 80053; 80061; 82043; 82570; 82607; 82746; 83036; 84153; 84439; 84443; 85025

== ENCOUNTER 2024-12-16 16:37 | Outpatient (AMB) | payer MEDICARE, MEDICAID, SELFPAY ==
[2024-12-16 16:41] VITALS: BP 122/78; PULSE 60; TEMP 36.2; O2SAT 96; BMI 40.6
--- NOTE | 2024-12-16 16:41 | A.OFFPC_ITS ---
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 Fiberglass Required: No Accompanied by: Daughter Allergies No Known Allergies [No Known Allergies*] Allergy (Verified 12/16/24 17:08) Medication List - Last Reconciled 12/16/24 by JORDAN Rosenthal aspirin 81 mg PO DAILY atorvastatin 80 mg PO DAILY atropine 1% drps ophthalmic (eye) blood pressure test kit-large As directed blood sugar diagnostic (FreeStyle Lite Strips) As directed check the BS QD blood-glucose meter (FreeStyle Lite Meter kit) As directed cyanocobalamin (vitamin B-12) 1,000 mcg intramuscularly; one mL weekly for 4 weeks; then 1 mL once per month 4 weeks ferrous sulfate 325 mg PO DAILY [incontinence bed pads As directed] incontinence pad, liner, disp (Underpads Regular) Twice daily As directed, 60 days lancets (FreeStyle Lancets) As directed check BS QD lisinopril 10 mg PO DAILY metformin 500 mg PO BIDWMEAL 30 days prednisolone acetate 1% drps ophthalmic (eye) [PULL UPS LARGE MENS As directed] [Raised toilet seat As directed] [Shower chair As directed] [walking cane As directed] Tobacco use date assessed: 10/09/24 Fall risk assessment: No Falls in past year Last assessed Fall Risk: 12/16/24 Dental Screening Dental Screen Date: 10/09/24 HPI eye surgery with dr lorenzo HPI Details The patient is a 69-year-old male who was presenting today for preop clearance, accompanied by his Niece and OPERATIONS DEVELOPER. Patient of Dr. Guthrie Surgery: Injection in the Retrobulbar-Patient has Neovascular Glaucoma of the right eye. Date: 12/30/2024 Surgeon/location: Dr. Holguin at [facility] Anesthesia: MAC. Patient reports history of general anesthesia in the past t hat he tolerated well. The patient will be getting a milder form of anesthesia. The patient denies any history of perioperative hypothermia or blood clotting disorders. The patient is not on any anticoagulants. Medical history significant for HTN, CVA, type 2 diabetes mellitus with hyperglycemia, hyperlipidemia, morbid obesity, anemia. 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 A scheduled surgery aims to mitigate his symptoms. Additionally, his medical history is notable for a stroke earlier this year, indicative of his cardiovascular risks. His diabetes has recently worsened, substantiated by increasing HbA1c levels, possibly due to inconsistent metformin intake and recent weight gain. A1c 8.1% in office; the patient niece reported that the patient leaves 4 hours during the day and come back late at night and only have time to take his metformin once instead of 2 times a day like ordered. The patient order is metformin 500 mg b.i.d.. The patient order was changed to metformin 1000 mg extended release daily. Discussed with the patient and niece that now he could take his metformin once a day and still get his full dose. CVA: Continue aspirin 81 mg daily and atorvastatin 80 mg daily. The patient triglycerides was 194, total cholesterol 168, LDL 86 and HDL 44. The patient LDL goal is less than 70 and his triglycerides goal is less than 150. Per the patient niece, the patient has been eating whatever he wants and has gained some weight. Reinforced low-cholesterol diet and activity as tolerated. HTN: Patient blood pressure was 122/78 in office; this is within goal. Reinforced low-sodium diet. Continue lisinopril 10 mg daily. Anemia: The patient's H&H was within normal limits. Continue ferrous sulfate 325 mg daily [facility] Medical History Hypertension Screening for colon cancer Acute CVA (cerebrovascular accident) Anemia Morbid (severe) obesity due to excess calories Arthritis Hyperlipidemia Surgical History Umbilical hernia (01/05/24) Pterygium Scrotal abscess Hx of excision of dermoid cyst Social History Household Members: Family Housing: Apartment Do you presently have visiting nurse or other home services: Yes (OPERATIONS DEVELOPER) Unable to assess alcohol history related to: Unknown Alcohol intake: current Alcohol intake frequency: holidays/special occasions only Alcohol type: beer Patient Tobacco Use Status: Never used Tobacco e-Cigarette/Vaping Use: Never Used Second Hand Smoke Exposure: No service: No Current occupational status: disabled Current occupational exposures/hazards: No Cognitive needs: No Hearing needs: Yes Vision needs: Yes Questionnaire Thrive Questionnaire Date Thrive assessed: 10/09/24 DIANA-7 AMB Questionnaire DIANA-7 Date DIANA - 7 assessed: 10/09/24 Source: Developed by Drs. Nate Mcdowell, Annamaria Anthony, [place] and colleagues, with an educational jessa from [employer]. Review of Systems Const Details: - Ocular: Reports blindness in the right eye, swelling, and high pressure. - Endocrine: Reports recent elevation in blood glucose levels. - Cardiovascular: Denies acute symptoms at present. - General: Reports recent weight gain. Denies headache(s) Eyes Reports loss of vision (right eye) ENT Denies vertigo, Denies dizziness, Denies headache(s) and Denies sore throat Card Denies chest pain, Denies leg edema and Denies lightheadedness Resp Denies cough, Denies hemoptysis and Denies wheezing GI Denies abdominal pain, Denies melena, Denies constipation, Reports heartburn (Depending on what he eats), Denies diarrhea and Denies vomiting Denies dysuria, Denies urinary frequency and Denies urinary urgency Musc Denies arthralgias, Denies joint swelling, Denies numbness and Denies tingling Neuro Reports Abnormal speech present (slurred post stroke), Denies vertigo, Denies dizziness, Denies headache(s), Reports loss of vision (right eye), Denies numbness and Denies tingling Hamzah/Lymph Denies easy bleeding and Denies easy bruising Aller/Immun Denies wheezing Physical exam (Primary Care) Vital Signs: Last Vital Signs Temp 97.1 F 12/16/24 16:41 Pulse 60 12/16/24 16:41 BP 122/78 12/16/24 16:41 Pulse Ox 96 12/16/24 16:41 Oxygen Delivery Method Room Air 12/16/24 16:41 BMI result Body Mass Index 40.6 Tobacco/Smoking Status: Tobacco use Status Tobacco use date assessed 10/09/24 12/16/24 16:49 Patient Tobacco Use Status Never used Tobacco 12/16/24 16:49 e-Cigarette/Vaping Use Never Used 12/16/24 16:49 Thrive Assessment: Date of Thrive Assessment Date Thrive assessed 10/09/24 12/16/24 16:49 Const General: cooperative, no acute distress, alert and awake HENMT Ears: external ears normal General nose exam: Normal external nose present Eyes Conjunctivae: conjunctivae normal Neck Neck: Yes no lymphadenopathy Thyroid: Thyroid normal Resp Effort & Inspection: normal respiratory effort and not tachypneic Auscultation: no crackles, no rales, no rhonchi and no wheezes Cardio Rate: regular rate Rhythm: regular rhythm Heart sounds: no murmurs and normal S1 and S2 GI Palpation (GI): Soft to palpation and nontender Auscultation: normal bowel sounds Skin General skin exam: no rashes or lesions noted and dry skin Neuro General: gait normal Speech: Abnormal speech present (slurred post stroke) Gait exam (Neuro): Normal gait present Motor exam (neuro): no tremor noted Extrem Right upper extremity: full ROM Left upper extremity: full ROM Right lower extremity: full ROM Left lower extremity: full ROM Psych Mental Status: mental status grossly normal Speech and movement: Slurred speech present Affect: normal affect Attitude: cooperative Results AMB Hemoglobin A1c AMB Hemoglobin A1c 8.1 % Last Edit by KRYSTIN Gregorio on 12/16/24 17:32 Results Reviewed Results Reviewed: Laboratory Last Values Hgb A1c (Clinic) 8.1 % (4.0-6.0) H 12/16/24 17:31 Coding Level of Care Code Est Pt Level 4 (77802) Diagnoses Preoperative clearance Z01.818 Hypertension, unspecified type I10 Hypertension type: unspecified Microscopic hematuria R31.29 History of CVA (cerebrovascular accident) Z86.73 Type 2 diabetes mellitus with hyperglycemia, without long-term current use of insulin E11.65 Diabetes mellitus correction insulin use: without intermediate card tender use Mixed hyperlipidemia E78.2 Hyperlipidemia type: mixed hyperlipidemia Morbid (severe) obesity due to excess calories E66.01 Time Spent (min) 41 Assessment & Plan Assessment & Plan (1) Preoperative clearance: Code(s): Z01.818 - Encounter for other preprocedural examination Category: Medical (2) Hypertension: Code(s): I10 - Essential (primary) hypertension Category: Medical Qualifiers: Hypertension type: unspecified Qualified Code(s): I10 - Essential (primary) hypertension (3) Microscopic hematuria: Code(s): R31.29 - Other microscopic hematuria Category: Medical (4) History of CVA (cerebrovascular accident): Comment: September 2022 MRI revealing acute infarct of the anterior right insular of the right frontal lobe, left facial droop with slurred speech Code(s): Z86.73 - Personal history of transient ischemic attack (TIA), and cerebral infarction without residual deficits Category: Medical (5) Type 2 diabetes mellitus with hyperglycemia: Comment: Dr. Roche Code(s): E11.65 - Type 2 diabetes mellitus with hyperglycemia Category: Medical Qualifiers: Diabetes mellitus intermediate card tender insulin use: without correction use Qualified Code(s): E11.65 - Type 2 diabetes mellitus with hyperglycemia (6) Hyperlipidemia: Code(s): E78.5 - Hyperlipidemia, unspecified Category: Medical Qualifiers: Hyperlipidemia type: mixed hyperlipidemia Qualified Code(s): E78.2 - Mixed hyperlipidemia (7) Morbid (severe) obesity due to excess calories: Code(s): E66.01 - Morbid (severe) obesity due to excess calories Category: Medical Plan Regarding preop clearance, the patient is at acceptable risk for proposed surgery. Reviewed with the patient and OPERATIONS DEVELOPER that no surgery is completely free of risk and that this examination is to assist the surgeon in reviewing informed consent. The patient's treatment calls for careful management of ocular issues, notably a surgical procedure addressing glaucoma on December 30. Management of diabetes and hypertension through medication and lifestyle modifications remains a priority, as recent HbA1c levels indicate deterioration. The stroke emphasizes the interconnected risks demanding vigilant adherence to diabetic treatment and dietary regulations. Advised weight management and consideration of future monitoring options to stabilize and reduce systemic risks will be emphasized during the follow-up appointments. Continue aspirin 81 mg, atorvastatin 80 mg, lisinopril 10 mg and started metformin ER 1000 mg daily Patient was informed and verbally consented to the use of an ambient scribe for clinic note documentation during this visit. Orders: Orders AMB Hemoglobin A1c 12/16/24 E11.65 - Type 2 diabetes mellitus with hyperglycemia Medications: New metformin ER 1,000 mg (2 x 500 mg) PO DAILY 90 days 180 tabs 3RF E11.65 - Type 2 diabetes mellitus with hyperglycemia Refilled cyanocobalamin (vitamin B-12) 1,000 mcg intramuscularly; one mL weekly for 4 weeks; then 1 mL once per month 4 weeks 10 mL 0RF Discontinued metformin Discontinued Reason: Patient Refused 500 mg PO BIDWMEAL 30 days 60 tabs 11RF E11.65 - Type 2 diabetes mellitus with hyperglycemia Patient Instructions: - Attend the scheduled eye surgery on December 30. - Start metformin ER 1000 mg daily with meals to manage blood sugar levels. - Monitor and adhere to lifestyle changes to manage weight. - Schedule follow-up appointments with primary care for regular monitoring of diabetes and hypertension. - Monitor for any new symptoms or change in condition and report them immediately.
== END 2024-12-16 18:01 | disposition home or self-care (01) ==
LOC: HO.HMCH 16:38
PROVIDERS: PCP Internal Medicine
DX: E11.65 Type 2 diabetes mellitus with hyperglycemia (principal)

== ENCOUNTER → 2024-12-16 16:37 | Outpatient (BNVA) | payer MEDICARE, MEDICAID, SELFPAY | PROVIDERS: PCP Internal Medicine | DX: Z01.818 Encounter for other preprocedural examination (principal); I10 Essential (primary) hypertension; R31.29 Other microscopic hematuria; E11.65 Type 2 diabetes mellitus with hyperglycemia; E78.2 Mixed hyperlipidemia; E66.01 Morbid (severe) obesity due to excess calories; Z68.41 Body mass index [BMI] 40.0-44.9, adult; Z71.3 Dietary counseling and surveillance; Z86.73 Personal history of transient ischemic attack (TIA), and cerebral infarction without residual deficits | CPT/HCPCS: 83036; 99212 ==

== ENCOUNTER 2024-12-30 10:06 | Day surgery (SDC) | payer MEDICARE, MEDICAID, SELFPAY ==
[2024-12-26 11:41] VITALS: BMI 40.6
--- NOTE | 2024-12-30 12:10 | P.CONAN_ITS ---
[facility] Active Problems Active Problems: All Active Problems Preoperative clearance (Acute) Learning disability (Acute) Lower extremity weakness (Acute) Acute respiratory failure with hypoxia (Acute) Postop check (Acute) B12 deficiency (Acute) Change in consistency of stool (Acute) Encounter for screening colonoscopy (Acute) Microscopic hematuria (Acute) Cognitive impairment (Acute) History of CVA (cerebrovascular accident) (Acute) Obesity (Acute) Type 2 diabetes mellitus with hyperglycemia (Acute) Fecal incontinence (Acute) Impaired speech (Acute) Umbilical hernia (Acute) Urinary incontinence (Acute) BPH (benign prostatic hyperplasia) (Acute) Umbilical hernia (Acute 01/05/24) Hypertension (Acute) Hyperlipidemia (Acute) Arthritis (Acute) Morbid (severe) obesity due to excess calories (Acute) Anemia (Acute) Past Medical History Medical History Blind right eye Cognitive impairment Screening for colon cancer Acute CVA (cerebrovascular accident) Anemia Morbid (severe) obesity due to excess calories Arthritis Hyperlipidemia Hypertension Functional capacity: independent ambulation Family History Family history of problems with anesthesia: No Surgical History Surgical History Umbilical hernia (01/05/24) Pterygium Scrotal abscess Hx of excision of dermoid cyst History of Problems with Anesthesia: No Social History Social History Household Members: Family Housing: Apartment Are you a primary animal caregiver to a significant other at home: No Do you presently have visiting nurse or other home services: Yes (QA INTERN niece Betsyjoe Luisdoris) Unable to assess alcohol history related to: Unknown Alcohol intake: current Alcohol intake frequency: holidays/special occasions only Alcohol type: beer Patient Tobacco Use Status: Never used Tobacco e-Cigarette/Vaping Use: Never Used Second Hand Smoke Exposure: No Use of substances other than those prescribed or required for medical reasons: No Are you DNR?: No Advance Directives: No Advance Directives Information Provided: Yes Advance Directives on File: No Poor oral hygiene: Yes (no teeth) service: No Current occupational status: disabled Current occupational exposures/hazards: No Cognitive needs: No Hearing needs: Yes Vision needs: Yes Meds Allergies Allergy/AdvReac Type Severity Reaction Status Date / Time No Known Allergies Allergy Verified 12/16/24 17:08 [No Known Allergies*] Home Medications ?Medication ?Instructions ?Recorded ?Confirmed ?Last Taken ?Type atropine 1 % eye drops drp ophthalmic (eye) 12/16/24 12/16/24 Unknown History prednisolone acetate 1 % eye drp ophthalmic (eye) 12/16/24 12/16/24 Unknown History drops,suspension Exam Height,Weight and Vital Signs: Height 5 ft 8 in Weight 121.223 kg Airway Mallampati Class: III TM Dist: >3cm Neck ROM: Full Heart: RRR Lungs: CTA Assessment and Plan Assessment Anesthesia Assessment: Anesthesia Plan Discussed Final Anesthetic Review Family History of Problems with Anesthesia: No History of Problems with Anesthesia: No NPO: Yes ASA Class: III Final Preanesthetic Review: Meds/Allgs Chart Reviewed, Consent Obtained/Reviewed and Anes Risks/Benef Reviewed Patient Risk: Low Procedure Risk: Low Anesthetic Plan Anesthetic Plan: MAC: Disposition: Standard PACU
--- NOTE | 2024-12-30 12:42 | MHC.SHP ---
Pre-Procedural Eval Section A - 24 Hr Update-Section A only Date of Service: 12/30/24 The patient is an INPATIENT: No Changes since office visit: No Cold of Flu in the past 2 weeks, No New Medical Problems, No Changes in Medication and No Patient answered all questions The patient has been examined within 24 hours of the surgical procedure. The History & Physical has been completed within 30 days and I have reviewed it.: Yes Section B - Complete if H&P > 30 days Chief Complaint: Other specified glaucoma Allergies: Allergies Allergy/AdvReac Type Severity Reaction Status Date / Time No Known Allergies Allergy Verified 12/16/24 17:08 [No Known Allergies*] Plan Diagnosis/Plan: Unchanged I have reviewed the history and physical and performed a pertinent physical examination on my patient. No changes have occurred unless specified. Time Spent With Patient Time: Total time managing care of this patient today ____ minutes.
--- NOTE | 2024-12-30 12:42 | HO.PNOPHT ---
Ophthalmology Procedure Procedure Date of Service: 12/30/24 Ophthalmology Viscoelastic: Not Applicable Ophthalmology Lenses: Not Applicable Procedure Notes: Painful blind Right eye Same MAC Retrobulbar Injection of the Right Eye After sedation per anesthesia the RIGHT eye was prepped in the usual fashion A 27 gauge needle was placed into the right retrobulbar space, 1.5 cc of Lidocaine was given followed by 2cc of absolute alcohol. The patient tolerasted the procedure and will be seen in follow up
[2024-12-30 12:49] LABS: Glucose, Whole Blood 151 mg/dL (60-115)
[2024-12-30 12:51] VITALS: BP 160/80; PULSE 66; RESP 16; TEMP 36.8; O2SAT 95
[2024-12-30 13:05] VITALS: BP 144/99; PULSE 62; RESP 16; TEMP 36.5; O2SAT 95
--- NOTE | 2024-12-30 13:05 | HO.POSTANES ---
Post Anesthesia Evaluation Post Anesthesia Evaluation Date of Service: 12/30/24 Vital Signs: Vital Signs Temp Pulse Resp BP Pulse Ox O2 Del Method 12/30/24 12:51 98.3 F 66 16 160/80 H 95 Room Air Anesthesia: Monitored Mental Status: Awake Pain Control: Satisfactory Nausea/Vomiting: None Hydration: Adequate Anesthesia-Related Issues: No Anes. Related Issues
--- NOTE | 2024-12-30 14:39 | HO.POSTANES ---
Post Anesthesia Evaluation Post Anesthesia Evaluation Date of Service: 12/30/24 Vital Signs: Vital Signs Temp Pulse Resp BP Pulse Ox O2 Del Method 12/30/24 13:05 97.7 F 62 16 144/99 H 95 Room Air 12/30/24 12:51 98.3 F 66 16 160/80 H 95 Room Air Anesthesia: Monitored Mental Status: Awake Pain Control: Satisfactory Nausea/Vomiting: None Hydration: Adequate Anesthesia-Related Issues: No Anes. Related Issues
== END 2024-12-30 14:13 | disposition home or self-care (01) ==
PROVIDERS: PCP Internal Medicine; Visit Provider Ophthalmology
PROC: (CPT 67505; principal; 2024-12-30 13:30)
DX: H40.89 Other specified glaucoma (principal); H54.415A Blindness right eye category 5, normal vision left eye; H57.11 Ocular pain, right eye; H33.001 Unspecified retinal detachment with retinal break, right eye; E11.9 Type 2 diabetes mellitus without complications; E78.00 Pure hypercholesterolemia, unspecified; Z79.84 Long term (current) use of oral hypoglycemic drugs; Z79.82 Long term (current) use of aspirin; Z79.899 Other long term (current) drug therapy
CPT/HCPCS: 67505; 67500; 82947; J2003; J2250; J3010

== ENCOUNTER 2025-01-06 15:55 | Outpatient (AMB) | payer MEDICARE, MEDICAID, SELFPAY ==
--- OUTSIDE RECORDS SUMMARY | 2025-01-06 15:57 | XMS_ITS | Clinical Summary ---
[facility] [address] [place] [address] Care Team Providers Care Video Clerk Name Role Phone Ga Guthrie MD Primary Care Provider Social History Tobacco Use Types Packs/Day Years Used Date Smoking Tobacco: Never Assessed Sex and Gender Information Value Date Recorded Sex Assigned at Not on file Legal Sex Male 11:07 AM EDT Gender Identity Not on file Sexual Orientation Not on file Last Filed Vital Signs Vital Sign Reading Time Taken Comments Blood Pressure - - Pulse - - Temperature - - Respiratory Rate - - Oxygen Saturation - - Inhaled Oxygen Concentration - - Weight 108 kg (239 lb) 11/13/2023 3:02 PM EDT Height 172.7 cm (5' 8 ) 11/13/2023 3:02 PM EDT Body Mass Index 36.34 11/13/2023 3:02 PM EDT Plan of Treatment Upcoming Encounters Date Type Department Care Team (Late st Contact Info) Description 01/15/2025 10:00 AM EDT Office Visit Orthopedic Surgery - [place] [address] [phone] Vic Glez, DPM [address] [id number] Health Maintenance Due Date Last Done Comments DTaP,Tdap,and Td Vaccines (1 - Tdap) 1973 Pneumococcal Vaccine: 50+ Ye ars (1 of 1 - PCV) 2004 Zoster Vaccines (1 of 2) 2004 Abdominal Aortic Aneurysm (A AA) Screen 03/22/2024 Cholesterol Screening (Lipid Panel) 03/22/2024 Colorectal Cancer Screening: Colonoscopy 03/22/2024 Depression Screening 03/22/2024 Falls Risk Assessment 03/22/2024 Hepatitis C Screening 03/22/2024 Social Influencers of Health Screening 03/22/2024 COVID-19 Vaccine ( - 2023-2 5 season) 2024 Influenza Vaccine (Season Ended) 2025 RSV Immunization Adult Patie nts (1 - 1-dose 75+ series) 2029 HIB Vaccines Aged Out No longer eligi ble based on patient's age to complete this topic HPV Vaccines Aged Out No longer eligi ble based on patient's age to complete this topic Hepatitis A Vaccines Aged Out No long er eligible based on patient's age to complete this topic Hepatitis B Vaccines Aged Out No long er eligible based on patient's age to complete this topic IPV Vaccines Aged Out No longer eligi ble based on patient's age to complete this topic MMR Vaccines Aged Out No longer eligi ble based on patient's age to complete this topic Meningococcal ACWY Vaccine Aged Out N o longer eligible based on patient's age to complete this topic Meningococcal B Vaccine Aged Out No l onger eligible based on patient's age to complete this topic RSV Immunization Patients Un liane 20 months Aged Out No longer eligible b ased on patient's age to complete this topic Varicella Vaccines Aged Out No longer eligible based on patient's age to complete this topic Care Teams Video Clerk Relationship Specialty Start Date End Date Ga Guthrie MD [address] [place] [address] [address] [facility] [place] [address] PCP - General 09/07/23
--- NOTE | 2025-01-06 15:58 | MHC.PC.OV ---
Vital Signs 01/06/25 16:00 Height 5 ft 8 in Weight 262 lb 2 oz BMI 39.9 BP 150/80 H Blood Pressure Location Lt brachial Position Sitting Pulse 72 Pulse Source Pulse Oximeter Temp 97.3 F Temp Source Temporal Artery Scan Pulse Oximetry (%) 95 Oxygen Delivery Method Room Air Intake Visit Reasons: DM Lodging House Keeper Required: Yes Lodging House Keeper Language: Director Drug Safety Name: Pt refused niece/DRUG ROOM OPERATOR interpret Accompanied by: DRUG ROOM OPERATOR-Betsy Saez Allergies No Known Allergies [No Known Allergies*] Allergy (Verified 01/06/25 16:04) Medication List - Last Reconciled 01/06/25 by Ga Guthrie MD alcohol swabs (Alcohol Pads) 1 pad topically once a week x 4 weeks then once a month; aspirin 81 mg PO DAILY atorvastatin 80 mg PO DAILY atropine 1% drps ophthalmic (eye) blood pressure test kit-large As directed blood sugar diagnostic (FreeStyle Lite Strips) As directed check the BS QD blood-glucose meter (FreeStyle Lite Meter kit) As directed cyanocobalamin (vitamin B-12) 1,000 mcg intramuscularly; one mL weekly for 4 weeks; then 1 mL once per month 4 weeks disposable gloves As directed ferrous sulfate 325 mg PO DAILY [incontinence bed pads As directed] incontinence pad, liner, disp (Underpads Regular) Twice daily As directed, 60 days insulin syringe-needle U-100 (CareTouch Insulin Syringe) As directed inject Vitamin B 12 once a week x 4 weeks then once a month lancets (FreeStyle Lancets) As directed check BS QD lisinopril 10 mg PO DAILY metformin ER 1,000 mg (2 x 500 mg) PO DAILY 90 days prednisolone acetate 1% drps ophthalmic (eye) [PULL UPS LARGE MENS As directed] [Raised toilet seat As directed] [Shower chair As directed] [walking cane As directed] Tobacco use date assessed: 10/09/24 Fall risk assessment: No Falls in past year Last assessed Fall Risk: 01/06/25 Dental Screening Dental Screen Date: 10/09/24 [facility] Medical History Blind right eye Cognitive impairment Screening for colon cancer Acute CVA (cerebrovascular accident) Anemia Morbid (severe) obesity due to excess calories Arthritis Hyperlipidemia Hypertension Surgical History Umbilical hernia (01/05/24) Pterygium Scrotal abscess Hx of excision of dermoid cyst Social History Household Members: Family Housing: Apartment Are you a primary care center manager to a significant other at home: No Do you presently have visiting nurse or other home services: Yes (DRUG ROOM OPERATOR niece Betsy Saez) Unable to assess alcohol history related to: Unknown Alcohol intake: current Alcohol intake frequency: holidays/special occasions only Alcohol type: beer Patient Tobacco Use Status: Never used Tobacco e-Cigarette/Vaping Use: Never Used Second Hand Smoke Exposure: No service: No Current occupational status: disabled Current occupational exposures/hazards: No Cognitive needs: No Hearing needs: Yes Vision needs: Yes Questionnaire PHQ-9 Over the last 2 weeks, how often have you been bothered by any of the following problems? 1. Little interest or pleasure in doing things: not at all 2. Feeling down, depressed, or hopeless: not at all 3. Trouble falling or staying asleep, or sleeping too much: not at all 4. Feeling tired or having little energy: not at all 5. Poor appetite or overeating: several days 6. Feeling bad about yourself - or that you are a failure or have let yourself or your family down: not at all 7. Trouble concentrating on things, such as reading the newspaper or watching television: not at all 8. Moving or speaking so slowly that other people could have noticed. Or the opposite - being so fidgety or restless that you have been moving around a lot more than usual: not at all 9. Thoughts that you would be better off or of hurting yourself in some way: not at all Total score: 1 Depression Screening Interpretation: Negative Depression Screening Done: Yes 36201 - PHQ-9 Billing: Yes Source: Developed by Drs. Nate Mcdowell, Annamaria Anthony, El Moy and colleagues, with an educational jessa from [email or web address]. Thrive Questionnaire Date Thrive assessed: 01/06/25 I am a: Patient What is your living situation today?: I have a steady place to live Within the past 12 months, did the food you bought not last and you didn't have the money to get more?: I choose not to answer this question Within the past 12 months, did you worry whether your food would run out before you got money to buy more?: I choose not to answer this question Do you have trouble paying for medicines?: No Do you have trouble getting transportation to medical appointments?: No Do you have trouble paying your heating and electricity bill?: No Do you have trouble taking care of your child, family member or friend?: No Do you have trouble with day-to-day activities such as bathing, preparing meals, shopping, managing finances, etc.?: I choose not to answer this question Are you currently unemployed and looking for a job?: I choose not to answer this question Are you interested in more education?: I choose not to answer this question Please select the resources that you would like help with: None Currently or been in a relationship where the following occur: I choose not to answer THRIVE Score: 0 AUDIT C Alcohol Use Questionnaire (AUDIT-C) 1. How often do you have a drink containing alcohol?: 2-4 times a month 2. How many drinks containing alcohol do you have on a typical day when you are drinking?: 3 or 4 3. How often do you have six or more drinks on one occasion?: Never Total Score: 3 DIANA-7 AMB Questionnaire DIANA-7 Date DIANA - 7 assessed: 01/06/25 Feeling nervous, anxious, or on edge: 0 = Not at all Not being able to stop or control worryin = Not at all Worrying too much about different things: 0 = Not at all Trouble relaxin = Not at all Being so restless that it is hard to sit still: 0 = Not at all Becoming easily annoyed or irritable: 0 = Not at all Feeling afraid as if something awful might happen: 0 = Not at all Total DIANA-7 score (0-4 normal; 5-9 mild; 10-14 moderate; 15-21 severe): 0 Source: Developed by Drs. Nate Mcdowell, Annamaria Anthony, El Moy and colleagues, with an educational jessa from [email or web address]. DIANA-7 Assessment Billing DIANA-7 Assessment Tool: DIANA-7 Assessment 49364 Physical exam (Primary Care) Vital Signs: Last Vital Signs Temp 97.3 F 01/06/25 16:00 Pulse 72 01/06/25 16:00 BP 150/80 H 01/06/25 16:00 Pulse Ox 95 01/06/25 16:00 Oxygen Delivery Method Room Air 01/06/25 16:00 BMI result Body Mass Index 39.9 Tobacco/Smoking Status: Tobacco use Status Tobacco use date assessed 10/09/24 01/06/25 15:58 Patient Tobacco Use Status Never used Tobacco 01/06/25 15:58 e-Cigarette/Vaping Use Never Used 01/06/25 15:58 PHQ-9: PHQ-9 Score PHQ-9: Total score 1 01/06/25 16:09 Depression Screening Interpretation: Negative Thrive Assessment: Date of Thrive Assessment Date Thrive assessed 01/06/25 01/06/25 15:58 Currently or been in a relationship where the following occur: I choose not to answer Const General: alert; No acute distress Eyes Conjunctivae: conjunctivae normal Resp Auscultation: clear to auscultation bilaterally Cardio Rate: regular rate Rhythm: regular rhythm GI Inspection: Yes normal to inspection Extrem General: Yes normal to inspection and No edema Coding Level of Care Code Est Pt Level 4 (16740) Complex EM visit Add On G2211 Diagnoses Type 2 diabetes mellitus with hyperglycemia, without long-term current use of insulin E11.65 Diabetes mellitus long term care social worker insulin use: without long term care social worker use B12 deficiency E53.8 Hypertension, unspecified type I10 Hypertension type: unspecified Mixed hyperlipidemia E78.2 Hyperlipidemia type: mixed hyperlipidemia History of CVA (cerebrovascular accident) Z86.73 Additional Codes DIANA-7 Assessment Billing - DIANA-7 Assessment Tool: DIANA-7 Assessment 57740 ([id number]) PHQ-9 - 38479 - PHQ-9 Billing: Yes ([id number]) Assessment & Plan Assessment & Plan (1) Type 2 diabetes mellitus with hyperglycemia: Comment: Dr. Roche Code(s): E11.65 - Type 2 diabetes mellitus with hyperglycemia Category: Medical Qualifiers: Diabetes mellitus correction insulin use: without long term care social worker use Qualified Code(s): E11.65 - Type 2 diabetes mellitus with hyperglycemia (2) B12 deficiency: Code(s): E53.8 - Deficiency of other specified B group vitamins Category: Medical Plan: Decrease the amount of carbohydrate intake, pasta, bread, rice and potatoes are all sugar and that is aside from all the sweet stuff, remember that fruits are good but they are Sweet also. Hemoglobin A1c goal of less than 7.0. Patient is on metformin a 1000 mg twice a day only (3) Hypertension: Code(s): I10 - Essential (primary) hypertension Category: Medical Qualifiers: Hypertension type: unspecified Qualified Code(s): I10 - Essential (primary) hypertension Plan: Continue with blood pressure medication. Decrease salt intake and exercise lisinopril 10 mg once a day (4) Hyperlipidemia: Code(s): E78.5 - Hyperlipidemia, unspecified Category: Medical Qualifiers: Hyperlipidemia type: mixed hyperlipidemia Qualified Code(s): E78.2 - Mixed hyperlipidemia Plan: Avoid fried foods, chicken skin, eggs, butter margarine, pastries and meat. Be it pork or beef they have a lot of cholesterol LDL goal of less than 70 and triglyceride of less than 150 on atorvastatin 80 mg once a day (5) History of CVA (cerebrovascular accident): Comment: September 2022 MRI revealing acute infarct of the anterior right insular of the right frontal lobe, left facial droop with slurred speech Code(s): Z86.73 - Personal history of transient ischemic attack (TIA), and cerebral infarction without residual deficits Category: Medical Plan: Control the cholesterol, weight, blood pressure, diabetes on aspirin 81 mg once a day Plan History of Present Illness The patient is a 69-year-old male presenting with follow-up for management of diabetes mellitus, hypertension, and hypercholesterolemia. In addition, he is under monitoring for established benign prostatic hyperplasia and has a history of a cerebrovascular accident. Lab assessments for his diabetes control revealed elevated fasting blood glucose at 151 and hemoglobin A1c at 8.1, highlighting suboptimal control. Consequently, his metformin regimen was adjusted back to 1000 mg twice daily. Under current management, his hypertension with lisinopril and hypercholesterolemia with atorvastatin are being monitored, with concern for the marginally raised LDL level at 86. His recent eye procedure involved a retrobulbar injection for a painful blind eye, managed under the care of an special forces weapons sergeant. Discussions were also held regarding his B12 injections, previously interrupted due to logistical issues, leading to low B12 levels not remedied by oral supplements, hence the reinstatement of injections. Health maintenance discussions were inclusive of a previously placed referral for a colonoscopy, as yet unscheduled. Health Maintenance - B12 injections: Restarted due to inadequate response to oral supplementation. - Colonoscopy: Referral was made, and scheduling follow-up required for preventative screening. - Lipid management: LDL goal set at less than 70, triglyceride goal less than 150. - Glycemic management: Hemoglobin A1c goal of less than 7.0. - Aspirin therapy: 81 mg once daily for cardiovascular protection. - Blood pressure management: Adherence to lisinopril 10 mg daily. Social History - The patient reports difficulties in receiving medical supplies, affecting B12 injection adherence, requiring assistance for acquisition through the pharmacy. - The patient is noted to be sedentary, spending considerable time resting to avoid potential eye infections. Review of Systems - Cardiovascular: Reports high blood pressure. - Endocrine: Reports poorly controlled diabetes per lab results. - Neurologic: Denies any recent cerebrovascular accident symptoms. - Musculoskeletal: Denies other musculoskeletal complaints. Physical Exam Results - Labs: Fasting blood glucose at 151; Hemoglobin A1c at 8.1 in November; LDL at 86; PSA, vitamin B12, folic acid, and thyroid studies within normal limits; Normal CBC and electrolytes; Renal function normal. - Urine: No proteinuria noted. Plan 1. LDL reduction targets under 70 will be pursued by maintaining atorvastatin 80 mg daily. Hypertension control remains a focus with lisinopril. Resolution for injection supply issues is ongoing. The patient continues on aspirin 81 mg daily for vascular protection. Scheduling of colonoscopy as planned is emphasized for preventative care continuity: . Patient was informed and verbally consented to the use of an ambient scribe for clinic note documentation during this visit. Discussion Notes I explained the current status of the patient?s diabetes, hypertension, and hypercholesterolemia management, highlighting the need to tighten glycemic and lipid control. We discussed the continuation of metformin, atorvastatin, and aspirin, with particular focus on LDL and hemoglobin A1c targets. The patient was informed about the importance of maintaining medication adherence. Regarding B12 injections, alternative pharmacy solutions were advised to address the supply chain challenges. The significance of scheduling a colonoscopy was reinforced, and we agreed on the need for ongoing follow-up in three months to monitor goals achievement. Patient Instructions - Continue taking metformin 1000 mg twice a day. - Take lisinopril 10 mg once daily for blood pressure. - Continue atorvastatin 80 mg once daily for cholesterol. - Take aspirin 81 mg daily. - Work with the pharmacy for B12 injection supplies. - Follow up in three months for re-evaluation. - Schedule and attend colonoscopy as soon as possible. - Call the office if you experience any new symptoms or side effects from medications. - Continue to monitor blood sugar levels and report any significant changes. Orders: Referrals Gastroenterology Referral Z12.11 - Encounter for screening for malignant neoplasm of colon Medications: New alcohol swabs (Alcohol Pads) 1 pad topically once a week x 4 weeks then once a month; 100 ea 1RF E53.8 - Deficiency of other specified B group vitamins insulin syringe-needle U-100 ([employer] Insulin Syringe) As directed inject Vitamin B 12 once a week x 4 weeks then once a month 100 ea 1RF E53.8 - Deficiency of other specified B group vitamins disposable gloves As directed 200 ea 1RF E53.8 - Deficiency of other specified B group vitamins
[2025-01-06 16:00] VITALS: BP 150/80; PULSE 72; TEMP 36.3; O2SAT 95; BMI 39.9
== END 2025-01-06 17:02 | disposition home or self-care (01) ==
LOC: HO.HMCH 15:56
PROVIDERS: PCP Internal Medicine; Visit Provider Internal Medicine
DX: E11.65 Type 2 diabetes mellitus with hyperglycemia (principal); E53.8 Deficiency of other specified B group vitamins; I10 Essential (primary) hypertension; E78.2 Mixed hyperlipidemia; Z86.73 Personal history of transient ischemic attack (TIA), and cerebral infarction without residual deficits

== ENCOUNTER → 2025-01-06 15:55 | Outpatient (BNVA) | payer MEDICARE, MEDICAID, SELFPAY | PROVIDERS: PCP Internal Medicine; Visit Provider Internal Medicine | DX: E11.65 Type 2 diabetes mellitus with hyperglycemia (principal); E53.8 Deficiency of other specified B group vitamins; E78.2 Mixed hyperlipidemia; I10 Essential (primary) hypertension; Z86.73 Personal history of transient ischemic attack (TIA), and cerebral infarction without residual deficits | CPT/HCPCS: 96127; 99212 ==